=== PATIENT | male | born 1935 | race Caucasian/White ===

== ENCOUNTER 2018-05-11 13:51 | Inpatient (IN) | payer MEDICARE, BC ==
[2018-05-11] MEDS ORDERED: SODIUM CHLORIDE 0.9% 1,000 ML IV STA (14:12)
[2018-05-11] MEDS ORDERED: IPRATROPIUM-ALBUTEROL 3 ML NEB INHALATION STA (14:12)
[2018-05-11] MEDS ORDERED: methylPREDNISolone SOD SUCCI 125 MG/2 ML VIAL IV STA (14:12)
--- NOTE | 2018-05-11 14:15 | ED ---
SOB HPI - General Chief Complaint: Shortness of Breath Stated Complaint: Cough Time Seen by Provider: 05/11/18 14:05 Source: patient, family, RN notes reviewed Mode of arrival: ambulatory Limitations: no limitations - History of Present Illness Initial Comments: This 82-year-old male with a history of hypertension CHF diabetes who states she 's had a cough for last 2 weeks he is coughing up white phlegm he denies any chest pain fevers or chills he has had some sweats with this. He was dyspneic with exertion. He was seen at [facility] just prior to arrival here he was given albuterol treatment with minimal improvement in his breathing per the patient. He denies any history of COPD or emphysema he is not a smoker he states he did work for the [employer] and was exposed to dirt and dust over the years. No other modifying factors at this time MD Complaint: shortness of breath, cough - Related Data Home Medications Medication Instructions Recorded Confirmed Carvedilol [Coreg] 6.25 mg PO BID 05/11/18 05/11/18 Diltiazem HCl [Cardizem] 240 mg PO DAILY 05/11/18 05/11/18 Enalapril [Vasotec] 20 mg PO DAILY 05/11/18 05/11/18 Fluticasone Nasal [place] [Flonase 1 spray EA NOSTRIL DAILY 05/11/18 05/11/18 Nasal [place]] Furosemide [Lasix] 40 mg PO DAILY 05/11/18 05/11/18 [place]-3 Fatty Acids/Fish Oil [Fish 1 cap PO DAILY 05/11/18 05/11/18 Oil 1,000 mg Softgel] Omeprazole 20 mg PO DAILY 05/11/18 05/11/18 Potassium Chloride [Klor-Con 10] 10 meq PO DAILY 05/11/18 05/11/18 Pravastatin Sodium [Pravachol] 80 mg PO DAILY 05/11/18 05/11/18 Warfarin Sodium [Coumadin] 2.5 mg PO SUTUWEFRSA 05/11/18 05/11/18 Warfarin [Coumadin] 5 mg PO MOTH 05/11/18 05/11/18 glipiZIDE XL [Glucotrol Xl] 5 mg PO DAILY 05/11/18 05/11/18 metFORMIN HCL [Glucophage] 1,000 mg PO DAILY 05/11/18 05/11/18 Allergies Allergy/AdvReac Type Severity Reaction Status Date / Time No Known Allergies Allergy Verified 05/11/18 16:45 Review of Systems ROS Statement: Those systems with pertinent positive or pertinent negative responses have been documented in the HPI. ROS Other: All systems not noted in ROS Statement are negative. Past Medical History Past Medical History: Heart Failure, Diabetes Mellitus, Hyperlipidemia, Hypertension History of Any Multi-Drug Resistant Organisms: None Reported Past Surgical History: Orthopedic Surgery Additional Past Surgical History / Comment(s): right hip Past Psychological History: No Psychological Hx Reported Smoking Status: Former smoker Past Alcohol Use History: Occasional Past Drug Use History: None Reported General Exam - General Exam Comments Initial Comments: This is a well-developed well-nourished awake alert oriented 3 male Limitations: no limitations General appearance: alert, in no apparent distress Head exam: Present: atraumatic, normocephalic, normal inspection Eye exam: Present: normal appearance, PERRL, EOMI. Absent: scleral icterus, conjunctival injection, periorbital swelling ENT exam: Present: normal exam, mucous membranes moist Neck exam: Present: normal inspection. Absent: tenderness, meningismus, lymphadenopathy Respiratory exam: Present: wheezes, decreased breath sounds. Absent: respiratory distress, rales, rhonchi, stridor Cardiovascular Exam: Present: irregular rhythm, normal heart sounds. Absent: systolic murmur, diastolic murmur, rubs, gallop, clicks GI/Abdominal exam: Present: soft, normal bowel sounds. Absent: distended, tenderness, guarding, rebound, rigid Extremities exam: Present: normal inspection, full ROM, normal capillary refill. Absent: tenderness, pedal edema, joint swelling, calf tenderness Back exam: Present: normal inspection Neurological exam: Present: alert, oriented X3, CN II-XII intact Psychiatric exam: Present: normal affect, normal mood Skin exam: Present: warm, dry, intact, normal color. Absent: rash Course Vital Signs 05/11/18 05/11/18 05/11/18 13:52 14:18 14:30 Temperature 98.5 F Pulse Rate 66 67 Respiratory 18 22 Rate Blood Pressure 104/67 104/57 O2 Sat by Pulse 93 L 95 96 Oximetry 05/11/18 05/11/18 05/11/18 14:44 15:00 15:07 Temperature Pulse Rate 66 78 Respiratory 22 22 Rate Blood Pressure 103/65 O2 Sat by Pulse 96 Oximetry 05/11/18 05/11/18 15:15 16:00 Temperature Pulse Rate 78 78 Respiratory 20 Rate Blood Pressure 110/58 O2 Sat by Pulse 95 Oximetry - Reevaluation(s) Reevaluation #1: 05/11/18 17:09 Reevaluation patient revealed minimal improvement after initial treatment that was rendered. Medical Decision Making - Medical Decision Making Reexamination patient reveals minimal improvement he still has diffuse wheezing especially in the lower aspects of both lungs. I did a long discussion with him and his family patient be admitted for evaluation treatment. Pulmonary consultation will be obtained. I did discuss the case with Dr. Amaya. - Lab Data Result diagrams: 05/11/18 14:28 05/11/18 14:28 Lab Results 05/11/18 05/11/18 05/11/18 Range/Units 14:28 14:28 14:28 WBC 11.6 H (3.8-10.6) k/uL RBC 4.96 (4.30-5.90) m/uL Hgb 15.3 (13.0-17.5) gm/dL Hct 47.3 (39.0-53.0) % MCV 95.4 (80.0-100.0) fL MCH 30.8 (25.0-35.0) pg MCHC 32.3 (31.0-37.0) g/dL RDW 13.2 (11.5-15.5) % Plt Count 221 (150-450) k/uL Neutrophils % 81 % Lymphocytes % 11 % Monocytes % 5 % Eosinophils % 0 % Basophils % 0 % Neutrophils # 9.4 H (1.3-7.7) k/uL Lymphocytes # 1.2 (1.0-4.8) k/uL Monocytes # 0.6 (0-1.0) k/uL Eosinophils # 0.0 (0-0.7) k/uL Basophils # 0.0 (0-0.2) k/uL PT (9.0-12.0) sec INR (<1.2) APTT (22.0-30.0) sec Sodium 141 (137-145) mmol/L Potassium 5.0 (3.5-5.1) mmol/L Chloride 108 H (98-107) mmol/L Carbon Dioxide 23 (22-30) mmol/L Anion Gap 10 mmol/L BUN 32 H (9-20) mg/dL Creatinine 1.90 H (0.66-1.25) mg/dL Est GFR (CKD-EPI)AfAm 37 (>60 ml/min/1.73 sqM) Est GFR (CKD-EPI)NonAf 32 (>60 ml/min/1.73 sqM) Glucose 100 H (74-99) mg/dL Calcium 9.3 (8.4-10.2) mg/dL Magnesium 1.9 (1.6-2.3) mg/dL Total Bilirubin 1.2 (0.2-1.3) mg/dL AST 24 (17-59) U/L ALT 28 (21-72) U/L Alkaline Phosphatase 54 (38-126) U/L Total Creatine Kinase 125 (55-170) U/L CK-MB (CK-2) 1.1 (0.0-2.4) ng/mL CK-MB (CK-2) Rel Index 0.9 Troponin I <0.012 (0.000-0.034) ng/mL NT-Pro-B Natriuret Pep pg/mL Total Protein 6.1 L (6.3-8.2) g/dL Albumin 3.4 L (3.5-5.0) g/dL 05/11/18 05/11/18 Range/Units 14:28 14:28 WBC (3.8-10.6) k/uL RBC (4.30-5.90) m/uL Hgb (13.0-17.5) gm/dL Hct (39.0-53.0) % MCV (80.0-100.0) fL MCH (25.0-35.0) pg MCHC (31.0-37.0) g/dL RDW (11.5-15.5) % Plt Count (150-450) k/uL Neutrophils % % Lymphocytes % % Monocytes % % Eosinophils % % Basophils % % Neutrophils # (1.3-7.7) k/uL Lymphocytes # (1.0-4.8) k/uL Monocytes # (0-1.0) k/uL Eosinophils # (0-0.7) k/uL Basophils # (0-0.2) k/uL PT 13.8 H (9.0-12.0) sec INR 1.5 H (<1.2) APTT 28.8 (22.0-30.0) sec Sodium (137-145) mmol/L Potassium (3.5-5.1) mmol/L Chloride (98-107) mmol/L Carbon Dioxide (22-30) mmol/L Anion Gap mmol/L BUN (9-20) mg/dL Creatinine (0.66-1.25) mg/dL Est GFR (CKD-EPI)AfAm (>60 ml/min/1.73 sqM) Est GFR (CKD-EPI)NonAf (>60 ml/min/1.73 sqM) Glucose (74-99) mg/dL Calcium (8.4-10.2) mg/dL Magnesium (1.6-2.3) mg/dL Total Bilirubin (0.2-1.3) mg/dL AST (17-59) U/L ALT (21-72) U/L Alkaline Phosphatase (38-126) U/L Total Creatine Kinase (55-170) U/L CK-MB (CK-2) (0.0-2.4) ng/mL CK-MB (CK-2) Rel Index Troponin I (0.000-0.034) ng/mL NT-Pro-B Natriuret Pep 1800 pg/mL Total Protein (6.3-8.2) g/dL Albumin (3.5-5.0) g/dL - EKG Data -: EKG Interpreted by Me (Atrial fibrillation with a rate of 75 QRS 70 QT since QTC 36/431 low-voltag) - Radiology Data Radiology results: report reviewed (I did review the imaging and report no apparent acute findings or is evidence of a pulmonary nodule is noted.), image reviewed Disposition Clinical Impression: Asthmatic bronchitis, Adult respiratory distress syndrome Disposition: ADMITTED IP TO THIS [facility] Condition: Stable Referrals: Nicole Little MD [Primary Care Provider] - 1-2 days
[2018-05-11 14:52] LABS: Basophils % (A) 0 %; Eosinophils % (A) 0 %; HCT 47.3 % (39.0-53.0); HGB 15.3 gm/dL (13.0-17.5); Lymphocytes # (A) 1.2 k/uL (1.0-4.8); Lymphocytes % (A) 11 %; MCH 30.8 pg (25.0-35.0); MCHC 32.3 g/dL (31.0-37.0); MCV 95.4 fL (80.0-100.0); Mean Platelet Volume 7.7; Monocytes # (A) 0.6 k/uL (0-1.0); Monocytes % (A) 5 %; Neutrophils # (A) 9.4 k/uL (1.3-7.7); Neutrophils % (A) 81 %; Platelet Count 221 k/uL (150-450); RBC 4.96 m/uL (4.30-5.90); RDW 13.2 % (11.5-15.5); WBC 11.6 k/uL (3.8-10.6)
[2018-05-11 15:02] LABS: INR 1.5 (<1.2); Partial Thromboplastin Time 28.8 sec (22.0-30.0); Prothrombin Time 13.8 sec (9.0-12.0)
[2018-05-11 15:04] LABS: Albumin 3.4 g/dL (3.5-5.0); Calcium 9.3 mg/dL (8.4-10.2); Magnesium 1.9 mg/dL (1.6-2.3); Total Bilirubin 1.2 mg/dL (0.2-1.3); Total Protein 6.1 g/dL (6.3-8.2)
[2018-05-11 15:17] LABS: Creatine Kinase 125 U/L (55-170)
[2018-05-11 15:31] LABS: Creatine Kinase MB 1.1 ng/mL (0.0-2.4); Troponin I <0.012 ng/mL (0.000-0.034)
--- NOTE | 2018-05-11 15:45 | XR ---
EXAMINATION TYPE: XR chest 2V DATE OF EXAM: 05/11/2018 COMPARISON: NONE HISTORY: Difficulty breathing, cough TECHNIQUE: Frontal and lateral views of the chest are obtained. FINDINGS: Heart is at the upper limit of normal, patient rotation may accentuate the appearance. Rob e nodular lesions are present in the right upper lobe which are indeterminate. There are overlying ca rdiac leads. Aorta is dense. No evident airspace disease, pneumothorax, or pleural effusion. Pulmonar y vascularity and key within normal limits. Prominent lung volumes suggest underlying COPD. There ar e coronary artery calcifications. IMPRESSION: Indeterminate nodularity right upper lobe, follow-up is recommended to assess for stabil ity, comparison with old chest x-rays would be of benefit if available. Coronary artery disease.
[2018-05-11] MEDS: SODIUM CHLORIDE 0.9% 1,000 ML IV SCH (17:20)
[2018-05-11] MEDS ORDERED: methylPREDNISolone SOD SUCCI 125 MG/2 ML VIAL IV SCH (19:00)
[2018-05-11] MEDS: CARVEDILOL 6.25 MG TAB PO SCH (19:13)
[2018-05-11] MEDS: WARFARIN 2.5 MG TAB PO SCH (19:13)
--- NOTE | 2018-05-11 20:11 | P.CNPUL ---
History of Present Illness Consult date: 05/11/18 Requesting physician: Rosalind Amaya Reason for consult: dyspnea Chief complaint: Shortness of breath cough and burping History of present illness: This is an 82-year-old white male with history of diabetes, chronic congestive heart failure, chronic atrial fibrillation, no documented history of COPD, patient had a very remote smoking history over 50 years ago, and normally he is not on any bronchodilators. Patient is mostly on multiple cardiac meds including Cardizem, Coreg, and enalapril, he is also on Lasix 40 mg daily. Patient is maintained on Coumadin, glipizide and metformin. Patient presented to the ER with 2 weeks history of increased shortness of breath, some cough, no fever no chills, complaining of occasional burping and wheezing. Upon arrival to the ER, patient was noted to be quite bronchospastic, he was given an updraft treatment, however he continued to wheeze. His chest x-ray showed no evidence of any significant disease, no pneumonia, no evidence of pulmonary edema, there is cardiomegaly, patient was admitted, and this consult was initiated. Presently the patient feels a bit better, less cough, less wheezing , no chest pain, no fever, no chills, no hemoptysis. No nausea no vomiting, but she continues to have intermittent burping symptoms. Denies any abdominal pain, no melena, no hematemesis, no dysuria and no frequency no urgency. Review of Systems 14 point review of systems were obtained, results are to pertinent positives and negatives in HPI. Otherwise remaining systems are negative. Past Medical History Past Medical History: Heart Failure, Diabetes Mellitus, Hyperlipidemia, Hypertension History of Any Multi-Drug Resistant Organisms: None Reported Past Surgical History: Orthopedic Surgery Additional Past Surgical History / Comment(s): right hip Past Anesthesia/Blood Transfusion Reactions: No Reported Reaction Past Psychological History: No Psychological Hx Reported Smoking Status: Former smoker Past Alcohol Use History: Occasional Past Drug Use History: None Reported Medications and Allergies Home Medications Medication Instructions Recorded Confirmed Type Carvedilol [Coreg] 6.25 mg PO BID 05/11/18 05/11/18 History Diltiazem HCl [Cardizem] 240 mg PO DAILY 05/11/18 05/11/18 History Enalapril [Vasotec] 20 mg PO DAILY 05/11/18 05/11/18 History Fluticasone Nasal [place] [Flonase 1 spray EA NOSTRIL DAILY 05/11/18 05/11/18 History Nasal [place]] Furosemide [Lasix] 40 mg PO DAILY 05/11/18 05/11/18 History [place]-3 Fatty Acids/Fish Oil [Fish 1 cap PO DAILY 05/11/18 05/11/18 History Oil 1,000 mg Softgel] Omeprazole 20 mg PO DAILY 05/11/18 05/11/18 History Potassium Chloride [Klor-Con 10] 10 meq PO DAILY 05/11/18 05/11/18 History Pravastatin Sodium [Pravachol] 80 mg PO DAILY 05/11/18 05/11/18 History Warfarin Sodium [Coumadin] 2.5 mg PO SUTUWEFRSA 05/11/18 05/11/18 History Warfarin [Coumadin] 5 mg PO MOTH 05/11/18 05/11/18 History glipiZIDE XL [Glucotrol Xl] 5 mg PO DAILY 05/11/18 05/11/18 History metFORMIN HCL [Glucophage] 1,000 mg PO DAILY 05/11/18 05/11/18 History Allergies Allergy/AdvReac Type Severity Reaction Status Date / Time No Known Allergies Allergy Verified 05/11/18 16:45 Physical Exam Vitals: Vital Signs Temp Pulse Resp BP Pulse Ox 05/11/18 17:50 97.9 F 05/11/18 17:30 80 22 126/81 96 05/11/18 17:00 85 20 115/66 95 05/11/18 16:30 66 20 115/58 96 05/11/18 16:00 78 20 110/58 95 05/11/18 15:15 78 05/11/18 15:07 78 05/11/18 15:00 66 22 103/65 96 05/11/18 14:44 22 05/11/18 14:30 67 22 104/57 96 05/11/18 14:18 95 05/11/18 13:52 98.5 F 66 18 104/67 93 L Intake and Output 05/11/18 05/11/18 05/11/18 06:59 14:59 22:59 Other: Weight 90.718 kg Physical Exam: Revealed an 82-year-old white male in no distress. Head: Atraumatic, normocephalic. HEENT:[Neck is supple.] [No neck masses.] [No thyromegaly.] [No JVD.] PERRLA, EOMI, no icterus. Chest: [Minimal fine crackles at the bases, wheezing on forced expiratory maneuver is noted. Symmetrical chest expansion, no chest wall tenderness..] Cardiac Exam: [Irregular irregular rhythm, 2/6 systolic murmur thought the precordium.] Abdomen: [,Soft, nontender, no megaly, no rebound, no guarding, normal bowel sounds.] Extremities: [No clubbing, trace of bipedal edema, no cyanosis.] Neurological Exam: [No focal neurologic deficit. Lymphatics: No lymphadenopathy. Psychiatric: Normal mood, affect and mental status examination. Skin: No rashes.] Results - Laboratory Findings CBC and BMP: 05/11/18 14:28 05/11/18 14:28 PT/INR, D-dimer PT 13.8 sec (9.0-12.0) H 05/11/18 14:28 INR 1.5 (<1.2) H 05/11/18 14:28 Abnormal lab findings: Abnormal Labs 05/11/18 05/11/18 05/11/18 14:28 14:28 14:28 WBC 11.6 H Neutrophils # 9.4 H PT 13.8 H INR 1.5 H Chloride 108 H BUN 32 H Creatinine 1.90 H Glucose 100 H Total Protein 6.1 L Albumin 3.4 L - Diagnostic Findings Chest x-ray: image reviewed (As noted in HPI.) Assessment and Plan Assessment: Impression: 1 shortness of breath, multifactorial, suspect underlying cardiomyopathy and LV dysfunction, chronic atrial fibrillation, suspect some component of COPD and tracheobronchitis. 2 chronic atrial fibrillation 3 cardiomyopathy and LV dysfunction hence an echocardiogram was ordered. 4 acute. Tracheobronchitis with acute COPD exacerbation. 5 type 2 diabetes 6 benign essential hypertension 7 dyslipidemia. 8 suspect chronic kidney disease, stage III based on his GFR. However the possibility of cardiorenal syndrome is not entirely ruled out. Recommendation: Continue present bronchodilators, steroids, antibiotics, increased the dose of Lasix, to 40 mg twice a day instead of 40 mg daily. ordered an echocardiogram on the patient, and we'll continue to follow. Resume his cardiac meds including Coreg, Cardizem, and lisinopril. Time with Patient: Greater than 30
[2018-05-11] MEDS: IPRATROPIUM-ALBUTEROL 3 ML NEB INHALATION SCH ×2 (20:15→23:32)
[2018-05-11] MEDS ORDERED: INSULIN ASPART 100 UNIT/ML 1 ML 10 ML VIAL SQ SCH (21:00)
[2018-05-11 21:14] LABS: Glucose,Whole Blood 144 mg/dL (75-99)
[2018-05-11] MEDS: AZITHROMYCIN 500 MG TAB PO SCH (21:35)
[2018-05-11] MEDS: INSULIN ASPART 100 UNIT/ML 1 ML 10 ML VIAL SQ SCH (21:35)
[2018-05-11] MEDS: methylPREDNISolone SOD SUCCI 40 MG/ML 1 ML VIAL IV SCH (22:44)
[2018-05-12] MEDS ORDERED: methylPREDNISolone SOD SUCCI 125 MG/2 ML VIAL IV SCH
[2018-05-12] MEDS: IPRATROPIUM-ALBUTEROL 3 ML NEB INHALATION SCH ×6 (03:05→23:31)
[2018-05-12] MEDS: PRAVASTATIN SODIUM 80 MG TAB PO SCH (07:33)
[2018-05-12] MEDS: methylPREDNISolone SOD SUCCI 40 MG/ML 1 ML VIAL IV SCH ×3 (07:33→23:29)
[2018-05-12] MEDS: CARVEDILOL 6.25 MG TAB PO SCH ×2 (07:33→17:33)
[2018-05-12] MEDS: POTASSIUM CHLORIDE ER 10 MEQ TAB.ER.PRT PO SCH (07:33)
[2018-05-12] MEDS: DILTIAZEM CD 240 MG CAP.ER.24H PO SCH (07:33)
[2018-05-12] MEDS: metFORMIN 500 MG TAB PO SCH (07:33)
[2018-05-12] MEDS: PANTOPRAZOLE 40 MG TABLET PO SCH (07:33)
[2018-05-12] MEDS: INSULIN ASPART 100 UNIT/ML 1 ML 10 ML VIAL SQ SCH ×4 (07:34→22:18)
[2018-05-12] MEDS: LISINOPRIL 20 MG TAB PO SCH (07:34)
[2018-05-12] MEDS: FUROSEMIDE 40 MG TAB PO SCH ×2 (07:34→15:18)
[2018-05-12 07:51] LABS: Glucose,Whole Blood 180 mg/dL (75-99)
[2018-05-12] MEDS: FLUTICASONE 50MCG/SPRAY NASAL 16GM EA NOSTRIL SCH (08:59)
[2018-05-12] MEDS ORDERED: FUROSEMIDE 40 MG TAB PO SCH (09:00)
[2018-05-12] MEDS ORDERED: NON-FORMULARY DRUG (Omega-3 Fatty Acids/Fish Oil [Fish Oil 1,000 Mg Softgel] 1 CAP) PO SCH (09:00)
--- NOTE | 2018-05-12 11:29 | P.PN ---
Subjective Progress Note Date: 05/12/18 Principal diagnosis: Shortness of breath, multifactorial, secondary to suspected underlying cardiomyopathy, and LV dysfunction, chronic atrial fibrillation and a component of COPD and tracheobronchitis This is an 82-year-old white male with history of diabetes, chronic congestive heart failure, chronic atrial fibrillation, no documented history of COPD, patient had a very remote smoking history over 50 years ago, and normally he is not on any bronchodilators. Patient is mostly on multiple cardiac meds including Cardizem, Coreg, and enalapril, he is also on Lasix 40 mg daily. Patient is maintained on Coumadin, glipizide and metformin. Patient presented to the ER with 2 weeks history of increased shortness of breath, some cough, no fever no chills, complaining of occasional burping and wheezing. Upon arrival to the ER, patient was noted to be quite bronchospastic, he was given an updraft treatment, however he continued to wheeze. His chest x-ray showed no evidence of any significant disease, no pneumonia, no evidence of pulmonary edema, there is cardiomegaly, patient was admitted, and this consult was initiated. Presently the patient feels a bit better, less cough, less wheezing , no chest pain, no fever, no chills, no hemoptysis. No nausea no vomiting, but she continues to have intermittent burping symptoms. Denies any abdominal pain, no melena, no hematemesis, no dysuria and no frequency no urgency. On 05/12/2018 patient seen in follow-up on medical surgical floor. Denies any acute distress, lung sounds remain very congested, it the patient is able to bring up some whitish colored sputum. No complaints of chest pain, no hemoptysis, no fever, no chills. Currently on 2 L per nasal cannula. Vitals have been stable. Patient is being treated with oral Lasix, empiric antibiotic , and nebulized bronchodilators in addition to IV steroids. No acute events overnight, no specific complaints, his breathing is easier today. Objective - Vital Signs Vital signs: Vital Signs Temp 96.9 F L 05/12/18 07:00 Pulse 100 05/12/18 11:11 Resp 16 05/12/18 07:00 BP 144/76 05/12/18 07:00 Pulse Ox 90 L 05/12/18 07:00 Intake & Output 05/11/18 05/12/18 05/12/18 19:59 06:59 18:59 Intake Total Output Total Balance Weight Intake: Oral Output: Urine - Exam Physical Exam: Revealed an 82-year-old white male in no distress. Head: Atraumatic, normocephalic. HEENT:[Neck is supple.] [No neck masses.] [No thyromegaly.] [No JVD.] PERRLA, EOMI, no icterus. Chest: [Diffuse rhonchi, wheezing on forced expiratory maneuver is noted. Symmetrical chest expansion, no chest wall tenderness..] Cardiac Exam: [Irregular irregular rhythm, 2/6 systolic murmur thought the precordium.] Abdomen: [,Soft, nontender, no megaly, no rebound, no guarding, normal bowel sounds.] Extremities: [No clubbing, trace of bipedal edema, no cyanosis.] Neurological Exam: [No focal neurologic deficit. Lymphatics: No lymphadenopathy. Psychiatric: Normal mood, affect and mental status examination. Skin: No rashes.] - Labs CBC & Chem 7: 05/11/18 14:28 05/11/18 14:28 Labs: Abnormal Lab Results - Last 24 Hours (Table) 05/11/18 05/11/18 05/11/18 Range/Units 14:28 14:28 14:28 WBC 11.6 H (3.8-10.6) k/uL Neutrophils # 9.4 H (1.3-7.7) k/uL PT 13.8 H (9.0-12.0) sec INR 1.5 H (<1.2) Chloride 108 H (98-107) mmol/L BUN 32 H (9-20) mg/dL Creatinine 1.90 H (0.66-1.25) mg/dL Glucose 100 H (74-99) mg/dL POC Glucose (mg/dL) (75-99) mg/dL Total Protein 6.1 L (6.3-8.2) g/dL Albumin 3.4 L (3.5-5.0) g/dL 05/11/18 05/12/18 Range/Units 20:53 07:29 WBC (3.8-10.6) k/uL Neutrophils # (1.3-7.7) k/uL PT (9.0-12.0) sec INR (<1.2) Chloride (98-107) mmol/L BUN (9-20) mg/dL Creatinine (0.66-1.25) mg/dL Glucose (74-99) mg/dL POC Glucose (mg/dL) 144 H 180 H (75-99) mg/dL Total Protein (6.3-8.2) g/dL Albumin (3.5-5.0) g/dL Assessment and Plan Plan: 1 shortness of breath, multifactorial, suspect underlying cardiomyopathy and LV dysfunction, chronic atrial fibrillation, suspect some component of COPD and tracheobronchitis. 2 chronic atrial fibrillation 3 cardiomyopathy and LV dysfunction hence an echocardiogram was ordered. 4 acute. Tracheobronchitis with acute COPD exacerbation. 5 type 2 diabetes 6 benign essential hypertension 7 dyslipidemia. 8 suspect chronic kidney disease, stage III based on his GFR. However the possibility of cardiorenal syndrome is not entirely ruled out. Plan: Continue current antibiotic coverage, IV steroids, oral Lasix bronchodilators. Wean FiO2, increase ambulation. Echocardiogram has been ordered and is pending at this time, no complaints of worsening shortness of breath or chest pain. Patient reports his breathing is improving, although still sounds congested and rhonchorous. Continue to follow I performed a history & physical examination of the patient and discussed their management with my nurse practitioner, Mary Copeland. I reviewed the nurse practitioner's note and agree with the documented findings and plan of care. Lung sounds are positive for diffuse rhonchi more so on the left. The findings and the impression was discussed with the patient. I attest to the documentation by the nurse practitioner. Time with Patient: Less than 30
[2018-05-12 12:04] LABS: Glucose,Whole Blood 195 mg/dL (75-99)
[2018-05-12 17:27] LABS: Glucose,Whole Blood 206 mg/dL (75-99)
[2018-05-12] MEDS: WARFARIN 2.5 MG TAB PO SCH (17:33)
[2018-05-12] MEDS: SODIUM CHLORIDE 0.9% 1,000 ML IV SCH (17:34)
--- NOTE | 2018-05-12 18:55 | P.HPIM ---
History of Present Illness H&P Date: 05/12/18 Chief Complaint: Shortness of breath Javon Chavira is an 82-year-old male patient of Dr. dunham who presented to [facility] emergency room with a chief complaint of worsening shortness of breath, he was evaluated in the emergency room preliminary diagnosis was acute exacerbation of chronic obstructive pulmonary disease, he was started on inhaled bronchodilators and IV steroids and was admitted to medical floor pulmonary consultation was requested. Patient does not have any clear history of chronic obstructive pulmonary disease he used to smoke but quit more than 50 years ago, he has known history of congestive heart failure, atrial fibrillation, hypertension, [id number] diabetes mellitus and hypertension. Patient was seen and examined he states that he has been having worsening shortness of breath over the last several days he denies any chest pain he has been having cough without any sputum production no hemoptysis no palpitation no fever or chills no headache or dizziness no nausea or vomiting no abdominal pain no diarrhea no burning with urination no frequency or urgency and no hematuria Past Medical History Past Medical History: Heart Failure, Diabetes Mellitus, Hyperlipidemia, Hypertension History of Any Multi-Drug Resistant Organisms: None Reported Past Surgical History: Orthopedic Surgery Additional Past Surgical History / Comment(s): right hip Past Anesthesia/Blood Transfusion Reactions: No Reported Reaction Past Psychological History: No Psychological Hx Reported Smoking Status: Former smoker Past Alcohol Use History: Occasional Past Drug Use History: None Reported Medications and Allergies Home Medications Medication Instructions Recorded Confirmed Type Carvedilol [Coreg] 6.25 mg PO BID 05/11/18 05/11/18 History Diltiazem HCl [Cardizem] 240 mg PO DAILY 05/11/18 05/11/18 History Enalapril [Vasotec] 20 mg PO DAILY 05/11/18 05/11/18 History Fluticasone Nasal [place] [Flonase 1 spray EA NOSTRIL DAILY 05/11/18 05/11/18 History Nasal [place]] Furosemide [Lasix] 40 mg PO DAILY 05/11/18 05/11/18 History [place]-3 Fatty Acids/Fish Oil [Fish 1 cap PO DAILY 05/11/18 05/11/18 History Oil 1,000 mg Softgel] Omeprazole 20 mg PO DAILY 05/11/18 05/11/18 History Potassium Chloride [Klor-Con 10] 10 meq PO DAILY 05/11/18 05/11/18 History Pravastatin Sodium [Pravachol] 80 mg PO DAILY 05/11/18 05/11/18 History Warfarin Sodium [Coumadin] 2.5 mg PO SUTUWEFRSA 05/11/18 05/11/18 History Warfarin [Coumadin] 5 mg PO MOTH 05/11/18 05/11/18 History glipiZIDE XL [Glucotrol Xl] 5 mg PO DAILY 05/11/18 05/11/18 History metFORMIN HCL [Glucophage] 1,000 mg PO DAILY 05/11/18 05/11/18 History Allergies Allergy/AdvReac Type Severity Reaction Status Date / Time No Known Allergies Allergy Verified 05/11/18 16:45 Physical Exam Vitals: Vital Signs Temp Pulse Pulse Resp BP Pulse Ox Pulse Ox 05/12/18 15:43 98 05/12/18 15:33 98 05/12/18 14:25 97.3 F L 87 16 118/71 94 L 05/12/18 12:05 96 05/12/18 11:23 100 05/12/18 11:11 100 05/12/18 07:28 100 05/12/18 07:14 104 H 05/12/18 07:00 96.9 F L 100 16 144/76 90 L 05/12/18 03:11 88 05/12/18 03:03 88 05/11/18 23:41 84 05/11/18 23:32 96 05/11/18 23:00 98.4 F 89 20 128/75 94 L 05/11/18 20:31 80 05/11/18 20:15 76 Pulse Ox Pulse Ox 05/12/18 15:43 05/12/18 15:33 05/12/18 14:25 05/12/18 12:05 93 L 92 L 05/12/18 11:23 05/12/18 11:11 05/12/18 07:28 05/12/18 07:14 05/12/18 07:00 05/12/18 03:11 05/12/18 03:03 05/11/18 23:41 05/11/18 23:32 05/11/18 23:00 05/11/18 20:31 05/11/18 20:15 Intake and Output 05/12/18 05/12/18 05/12/18 06:59 14:59 22:59 Other: # Voids 2 In general patient is alert and oriented 3 in no apparent distress HEENT head normocephalic and atraumatic Neck is supple no JVD no goiter no lymphadenopathy Chest exam reveals a few scattered crackles bilaterally with mild wheezing Cardiac exam reveals irregular heart sounds S1 and S2 no gallops no murmurs Abdomen is soft nontender no organomegaly with normal bowel sounds Extremity exam reveals no edema no cyanosis or clubbing Neurological examination reveals no gross focal deficit Results CBC & Chem 7: 05/11/18 14:28 05/11/18 14:28 Labs: Abnormal Lab Results - Last 24 Hours (Table) 05/11/18 05/12/18 05/12/18 Range/Units 20:53 07:29 11:58 POC Glucose (mg/dL) 144 H 180 H 195 H (75-99) mg/dL 05/12/18 Range/Units 17:10 POC Glucose (mg/dL) 206 H (75-99) mg/dL Microbiology - Last 24 Hours (Table) 05/11/18 14:28 Blood Culture - Preliminary Blood No Growth after 24 hours Thrombosis Risk Factor Assmnt - Choose All That Apply Any of the Below Risk Factors Present?: Yes Each Factor Represents 1 point: Obesity (BMI >25) Other Risk Factors: Yes Each Risk Factor Represents 3 Points: Age 75 years or older Other congenital or acquired thrombophilia - If yes, enter type in comment: No Thrombosis Risk Factor Assessment Total Risk Factor Score: 4 Thrombosis Risk Factor Assessment Level: Moderate Risk Assessment and Plan Plan: #1 acute purulent bronchitis #2 acute exacerbation of chronic obstructive pulmonary disease #3 underlying history of cardiomyopathy #4 underlying history of atrial fibrillation, maintained on Coumadin #5 underlying history of [id number] diabetes mellitus #6 and history of hypertension At this time medication and labs were reviewed continue with IV antibiotic, IV steroids, and inhaled bronchodilators Check echocardiogram consult cardiology in that regard to cardiomyopathy and atrial fibrillation Add Mucinex 600 mg twice daily Recheck labs including INR in a.m.
[2018-05-12] MEDS: AZITHROMYCIN 500 MG TAB PO SCH (20:01)
[2018-05-12 21:09] LABS: Glucose,Whole Blood 190 mg/dL (75-99)
[2018-05-13] MEDS: IPRATROPIUM-ALBUTEROL 3 ML NEB INHALATION SCH ×6 (03:45→23:44)
[2018-05-13 07:38] LABS: Glucose,Whole Blood 239 mg/dL (75-99)
[2018-05-13] MEDS: FLUTICASONE 50MCG/SPRAY NASAL 16GM EA NOSTRIL SCH (07:57)
[2018-05-13] MEDS: INSULIN ASPART 100 UNIT/ML 1 ML 10 ML VIAL SQ SCH ×4 (07:57→22:12)
[2018-05-13] MEDS: FUROSEMIDE 40 MG TAB PO SCH ×2 (07:58→15:12)
[2018-05-13] MEDS: methylPREDNISolone SOD SUCCI 40 MG/ML 1 ML VIAL IV SCH ×2 (07:58→15:12)
[2018-05-13] MEDS: POTASSIUM CHLORIDE ER 10 MEQ TAB.ER.PRT PO SCH (07:58)
[2018-05-13] MEDS: PANTOPRAZOLE 40 MG TABLET PO SCH (07:58)
[2018-05-13] MEDS: DILTIAZEM CD 240 MG CAP.ER.24H PO SCH (07:59)
[2018-05-13] MEDS: CARVEDILOL 6.25 MG TAB PO SCH ×2 (07:59→15:14)
[2018-05-13] MEDS: metFORMIN 500 MG TAB PO SCH (07:59)
[2018-05-13] MEDS: PRAVASTATIN SODIUM 80 MG TAB PO SCH (08:26)
[2018-05-13] MEDS: LISINOPRIL 20 MG TAB PO SCH (08:27)
[2018-05-13 09:45] LABS: Basophils % (A) 0 %; Eosinophils % (A) 0 %; HCT 39.8 % (39.0-53.0); HGB 13.3 gm/dL (13.0-17.5); Lymphocytes # (A) 0.5 k/uL (1.0-4.8); Lymphocytes % (A) 3 %; MCH 31.4 pg (25.0-35.0); MCHC 33.4 g/dL (31.0-37.0); MCV 94.1 fL (80.0-100.0); Mean Platelet Volume 8.2; Monocytes # (A) 0.4 k/uL (0-1.0); Monocytes % (A) 3 %; Neutrophils # (A) 14.5 k/uL (1.3-7.7); Neutrophils % (A) 94 %; Platelet Count 203 k/uL (150-450); RBC 4.23 m/uL (4.30-5.90); RDW 13.2 % (11.5-15.5); WBC 15.5 k/uL (3.8-10.6)
[2018-05-13 09:48] LABS: Prothrombin Time 17.8 sec (9.0-12.0)
[2018-05-13 10:51] LABS: Hemoglobin A1C 6.5 % (4.0-6.0)
--- NOTE | 2018-05-13 10:56 | P.PN ---
Subjective Progress Note Date: 05/13/18 Javon Chavira is an 82-year-old male patient of Dr. dunham who presented to [facility] emergency room with a chief complaint of worsening shortness of breath, he was evaluated in the emergency room preliminary diagnosis was acute exacerbation of chronic obstructive pulmonary disease, he was started on inhaled bronchodilators and IV steroids and was admitted to medical floor pulmonary consultation was requested. Patient does not have any clear history of chronic obstructive pulmonary disease he used to smoke but quit more than 50 years ago, he has known history of congestive heart failure, atrial fibrillation, hypertension, [id number] diabetes mellitus and hypertension. Patient was seen and examined he states that he has been having worsening shortness of breath over the last several days he denies any chest pain he has been having cough without any sputum production no hemoptysis no palpitation no fever or chills no headache or dizziness no nausea or vomiting no abdominal pain no diarrhea no burning with urination no frequency or urgency and no hematuria On 05/13/2018 patient is currently alert and oriented 3 resting in bed. Patient is still complaining of dry nonproductive cough. Patient is maintained on azithromycin Solu-Medrol and Lasix at this time. Cardiology services are following 2-D echo has been ordered. The same patient denies chest pain. Patient denies any urinary burning or frequency. Patient denies nausea vomiting or diarrhea. Objective - Vital Signs Vital signs: Vital Signs Temp 97.7 F 05/13/18 07:00 Pulse 72 05/13/18 07:30 Resp 18 05/13/18 07:00 BP 111/53 05/13/18 07:00 Pulse Ox 97 05/13/18 07:14 Intake & Output 05/12/18 05/13/18 05/13/18 18:59 06:59 18:59 Other: Voiding Method Toilet # Voids 2 2 - Exam Head normocephalic Neck supple Lungs scattered crackles bilaterally with mild wheezing Heart regular rate and rhythm S1-S2, no rub or gallop Abdomen is soft nontender nondistended positive bowel sounds no hepatosplenomegaly Extremities no edema Neuro alert and orientated to 3 - Labs CBC & Chem 7: 05/13/18 09:26 05/11/18 14:28 Labs: Abnormal Lab Results - Last 24 Hours (Table) 05/12/18 05/12/18 05/12/18 Range/Units 11:58 17:10 20:48 WBC (3.8-10.6) k/uL RBC (4.30-5.90) m/uL Neutrophils # (1.3-7.7) k/uL Lymphocytes # (1.0-4.8) k/uL PT (9.0-12.0) sec INR (<1.2) POC Glucose (mg/dL) 195 H 206 H 190 H (75-99) mg/dL 05/13/18 05/13/18 05/13/18 Range/Units 07:30 09:26 09:26 WBC 15.5 H (3.8-10.6) k/uL RBC 4.23 L (4.30-5.90) m/uL Neutrophils # 14.5 H (1.3-7.7) k/uL Lymphocytes # 0.5 L (1.0-4.8) k/uL PT 17.8 H (9.0-12.0) sec INR 2.0 H (<1.2) POC Glucose (mg/dL) 239 H (75-99) mg/dL Microbiology - Last 24 Hours (Table) 05/11/18 14:28 Blood Culture - Preliminary Blood No Growth after 24 hours Assessment and Plan Assessment: #1 acute purulent bronchitis. Per pulmonary services continue bronchodilators, steroids, antibiotics increased dose of Lasix to 40 mg twice a day. #2 acute exacerbation of chronic obstructive pulmonary disease #3 underlying history of cardiomyopathy. Cardiology services are following. 2- D echo has been ordered #4 underlying history of atrial fibrillation, maintained on Coumadin. INR 2.0 #5 underlying history of [id number]-[id number] diabetes mellitus #6 and history of hypertension #7 acute kidney injury. Initial creatinine 1.90 and bun 32. Repeat labs have been ordered DVT prophylaxis Coumadin. GI prophylaxis Protonix I performed an examination of the patient and discussed their management with the Nurse Practitioner. I have reviewed the Nurse Practitioner's notes and agree with the documented findings and plan of care
[2018-05-13 11:03] LABS: Albumin 3.2 g/dL (3.5-5.0); Calcium 9.1 mg/dL (8.4-10.2); Potassium 4.8 mmol/L (3.5-5.1); Total Bilirubin 0.5 mg/dL (0.2-1.3); Total Protein 5.7 g/dL (6.3-8.2)
--- NOTE | 2018-05-13 11:43 | ECHOF ---
Referral Reason:chf/sob MEASUREMENTS -------- HEIGHT: 167.6 cm WEIGHT: 90.7 kg BP: 118/71 RVIDd: 3.0 cm (< 3.3) IVSd: 1.5 cm (0.6 - 1.1) LVIDd: 4.2 cm (3.9 - 5.3) LVPWd: 1.5 cm (0.6 - 1.1) IVSs: 1.6 cm LVIDs: 3.1 cm LVPWs: 2.1 cm LA Diam: 4.4 cm (2.7 - 3.8) LAESV Index (A-L): 37.37 ml/m Ao Diam: 3.1 cm (2.0 - 3.7) AV Cusp: 1.8 cm (1.5 - 2.6) MV EXCURSION: 19.176 mm (> 18.000) MV EF SLOPE: 117 mm/s (70 - 150) EPSS: 0.2 cm AV maxP.88 mmHg AV meanP.51 mmHg RAP: 5.00 mmHg RVSP: 37.00 mmHg FINDINGS -------- Atrial fibrillation. This was a technically adequate study. The left ventricular size is normal. There is moderate concentric left ventricular hypertrophy. O verall left ventricular systolic function is normal with, an EF between 55 - 60 %. The right ventricle is normal in size. LA is moderately dilated 34-39 ml/m2 The right atrium is normal in size. There is mild aortic valve sclerosis. There is mild aortic stenosis present. Peak/mean gradient a cross the Aortic Valve is 18.88mmHg / 8.51mmHg. The mitral valve leaflets are mildly thickened. Mild mitral annular calcification present. Mild m itral regurgitation is present. Mild tricuspid regurgitation present. There is mild pulmonary hypertension. The right ventricular systolic pressure, as measured by Doppler, is 37.00mmHg. The pulmonic valve was not well visualized. The aortic root size is normal. Normal inferior vena cava with normal inspiratory collapse consistent with estimated right atrial pre ssure of 5 mmHg. There is a small, generalized pericardial effusion present. CONCLUSIONS -------- 1. Atrial fibrillation. 2. This was a technically adequate study. 3. The left ventricular size is normal. 4. There is moderate concentric left ventricular hypertrophy. 5. Overall left ventricular systolic function is normal with, an EF between 55 - 60 %. 6. The right ventricle is normal in size. 7. LA is moderately dilated 34-39 ml/m2 8. The right atrium is normal in size. 9. There is mild aortic valve sclerosis. 10. There is mild aortic stenosis present. 11. Peak/mean gradient across the Aortic Valve is 18.88mmHg / 8.51mmHg. 12. The mitral valve leaflets are mildly thickened. 13. Mild mitral annular calcification present. 14. Mild mitral regurgitation is present. 15. Mild tricuspid regurgitation present. 16. There is mild pulmonary hypertension. 17. The right ventricular systolic pressure, as measured by Doppler, is 37.00mmHg. 18. The pulmonic valve was not well visualized. 19. The aortic root size is normal. 20. Normal inferior vena cava with normal inspiratory collapse consistent with estimated right atrial pressure of 5 mmHg. 21. There is a small, generalized pericardial effusion present. REFERENCE SERVICES HEAD: Krystle Mccain RDCS
--- NOTE | 2018-05-13 11:52 | CONS ---
CHAZ Alejandro is an 82-year-old gentleman with history of diabetes, hypertension, dyslipidemia and atrial fibrillation, who presented to hospital complaining of shortness of breath, cough with unproductive sputum. Cardiology had been consulted because of elevated BNP. At the time of my evaluation, patient is being treated with nebulizers, antibiotics, and IV diuretics without significant change in his symptoms. PAST MEDICAL HISTORY: Past medical history is significant for atrial fibrillation, hypertension, diabetes, dyslipidemia. PAST SURGICAL HISTORY: Past surgical history is significant for hip replacement. SOCIAL HISTORY: Negative for smoking. REVIEW OF SYSTEMS: HEENT is unremarkable. CARDIAC: As described above. RESPIRATORY: As described above. GI: Negative. GENITOURINARY: Negative. ALLERGY/IMMUNOLOGY: Negative. SKIN: Negative. MUSCULOSKELETAL: Significant for arthritis. PSYCHOSOCIAL: Negative. ENDOCRINE: Negative. DERM: Negative. CONSTITUTIONAL: Negative. ONCOLOGICAL: Negative. Rest of the systems review is not relevant. MEDICATIONS: Medications at home included Coreg 6.25 b.i.d., Cardizem 240 daily, Vasotec 20 daily, Flonase, Lasix 40 q. daily, fish oil, K-Dur, Pravachol, Coumadin, Glucotrol XL, and Glucophage. ALLERGIES: No known drug allergies. PHYSICAL EXAMINATION: On exam, patient is comfortable at rest. Vital signs are stable. There is no jugular venous distention. Chest exam reveals diffuse rhonchi bilaterally. Heart exam reveals first and second heart sounds. No gallop. Has a systolic murmur at the left lower sternal border. Abdomen is soft. Examination of extremities did not reveal any edema. Peripheral pulses are felt. LABS: Labs show that the hemoglobin is 13.3. INR is therapeutic at 2. BNP is elevated. EKG shows atrial fibrillation with controlled ventricular rate. ASSESSMENT: 1. Shortness of breath, probably due to combination of bronchitis and acute exacerbation of chronic diastolic heart failure. 2. Chronic atrial fibrillation. 3. Hypertension. 4. Dyslipidemia. PLAN: I agree with the antibiotics, IV diuretics, Coumadin to maintain an INR of 2 to 2.5, Coreg and Cardizem to control the blood pressure and heart rate. I will obtain a 2D echo to evaluate his LV function. Thank you for allowing me to participate in the care of this pleasant gentleman. MMODL / IJN: [id number] /
[2018-05-13 12:03] LABS: Glucose,Whole Blood 155 mg/dL (75-99)
--- NOTE | 2018-05-13 14:08 | P.PN ---
Subjective Progress Note Date: 05/13/18 Principal diagnosis: Shortness of breath, multifactorial, secondary to suspected underlying cardiomyopathy, and LV dysfunction, chronic atrial fibrillation and a component of COPD and tracheobronchitis This is an 82-year-old white male with history of diabetes, chronic congestive heart failure, chronic atrial fibrillation, no documented history of COPD, patient had a very remote smoking history over 50 years ago, and normally he is not on any bronchodilators. Patient is mostly on multiple cardiac meds including Cardizem, Coreg, and enalapril, he is also on Lasix 40 mg daily. Patient is maintained on Coumadin, glipizide and metformin. Patient presented to the ER with 2 weeks history of increased shortness of breath, some cough, no fever no chills, complaining of occasional burping and wheezing. Upon arrival to the ER, patient was noted to be quite bronchospastic, he was given an updraft treatment, however he continued to wheeze. His chest x-ray showed no evidence of any significant disease, no pneumonia, no evidence of pulmonary edema, there is cardiomegaly, patient was admitted, and this consult was initiated. Presently the patient feels a bit better, less cough, less wheezing , no chest pain, no fever, no chills, no hemoptysis. No nausea no vomiting, but she continues to have intermittent burping symptoms. Denies any abdominal pain, no melena, no hematemesis, no dysuria and no frequency no urgency. On 05/12/2018 patient seen in follow-up on medical surgical floor. Denies any acute distress, lung sounds remain very congested, it the patient is able to bring up some whitish colored sputum. No complaints of chest pain, no hemoptysis, no fever, no chills. Currently on 2 L per nasal cannula. Vitals have been stable. Patient is being treated with oral Lasix, empiric antibiotic , and nebulized bronchodilators in addition to IV steroids. No acute events overnight, no specific complaints, his breathing is easier today. On 05/13/2018 patient seen in follow-up on medical surgical floor. Patient still has a persistent dry cough, lung sounds are still positive for diffuse wheezes, and rhonchi, overall improving. No chest pain, vital signs are stable , currently on 2 L per nasal cannula his pulse ox is 94%, this morning echocardiogram was completed showed preserved left ventricular systolic function with an EF [place] and 55 and 60%, evidence of mild aortic stenosis, mild TR. There is mild pulmonary hypertension with right ventricular systolic pressure of 37 mmHg. There is a small generalized pericardial effusion. Patient is on oral diuretics, and he is being treated for dyspnea related to a combination of tracheobronchitis and acute exacerbation of chronic diastolic heart failure Objective - Vital Signs Vital signs: Vital Signs Temp 97.7 F 05/13/18 07:00 Pulse 76 05/13/18 11:03 Resp 18 05/13/18 07:00 BP 111/53 05/13/18 07:00 Pulse Ox 97 05/13/18 07:14 Intake & Output 05/12/18 05/13/18 05/13/18 18:59 06:59 18:59 Other: Voiding Method Toilet # Voids 2 2 - Exam Physical Exam: Revealed an 82-year-old white male in no distress. Head: Atraumatic, normocephalic. HEENT:[Neck is supple.] [No neck masses.] [No thyromegaly.] [No JVD.] PERRLA, EOMI, no icterus. Chest: [Diffuse rhonchi, wheezing on forced expiratory maneuver is noted. Symmetrical chest expansion, no chest wall tenderness..] Cardiac Exam: [Irregular irregular rhythm, 2/6 systolic murmur thought the precordium.] Abdomen: [,Soft, nontender, no megaly, no rebound, no guarding, normal bowel sounds.] Extremities: [No clubbing, trace of bipedal edema, no cyanosis.] Neurological Exam: [No focal neurologic deficit. Lymphatics: No lymphadenopathy. Psychiatric: Normal mood, affect and mental status examination. Skin: No rashes.] - Labs CBC & Chem 7: 05/13/18 09:26 05/13/18 09:26 Labs: Abnormal Lab Results - Last 24 Hours (Table) 05/11/18 05/12/18 05/12/18 Range/Units 14:28 17:10 20:48 WBC (3.8-10.6) k/uL RBC (4.30-5.90) m/uL Neutrophils # (1.3-7.7) k/uL Lymphocytes # (1.0-4.8) k/uL PT (9.0-12.0) sec INR (<1.2) Chloride (98-107) mmol/L Carbon Dioxide (22-30) mmol/L BUN (9-20) mg/dL Creatinine (0.66-1.25) mg/dL Glucose (74-99) mg/dL POC Glucose (mg/dL) 206 H 190 H (75-99) mg/dL Hemoglobin A1c 6.5 H (4.0-6.0) % Total Protein (6.3-8.2) g/dL Albumin (3.5-5.0) g/dL 05/13/18 05/13/18 05/13/18 Range/Units 07:30 09:26 09:26 WBC 15.5 H (3.8-10.6) k/uL RBC 4.23 L (4.30-5.90) m/uL Neutrophils # 14.5 H (1.3-7.7) k/uL Lymphocytes # 0.5 L (1.0-4.8) k/uL PT 17.8 H (9.0-12.0) sec INR 2.0 H (<1.2) Chloride (98-107) mmol/L Carbon Dioxide (22-30) mmol/L BUN (9-20) mg/dL Creatinine (0.66-1.25) mg/dL Glucose (74-99) mg/dL POC Glucose (mg/dL) 239 H (75-99) mg/dL Hemoglobin A1c (4.0-6.0) % Total Protein (6.3-8.2) g/dL Albumin (3.5-5.0) g/dL 05/13/18 05/13/18 Range/Units 09:26 11:59 WBC (3.8-10.6) k/uL RBC (4.30-5.90) m/uL Neutrophils # (1.3-7.7) k/uL Lymphocytes # (1.0-4.8) k/uL PT (9.0-12.0) sec INR (<1.2) Chloride 112 H (98-107) mmol/L Carbon Dioxide 18 L (22-30) mmol/L BUN 58 H (9-20) mg/dL Creatinine 1.67 H (0.66-1.25) mg/dL Glucose 235 H (74-99) mg/dL POC Glucose (mg/dL) 155 H (75-99) mg/dL Hemoglobin A1c (4.0-6.0) % Total Protein 5.7 L (6.3-8.2) g/dL Albumin 3.2 L (3.5-5.0) g/dL Microbiology - Last 24 Hours (Table) 05/11/18 14:28 Blood Culture - Preliminary Blood No Growth after 24 hours Assessment and Plan Plan: 1 shortness of breath, multifactorial, suspect underlying cardiomyopathy and LV dysfunction, chronic atrial fibrillation, suspect some component of COPD and tracheobronchitis. 2 chronic atrial fibrillation 3 cardiomyopathy and LV dysfunction hence an echocardiogram was ordered. 4 acute. Tracheobronchitis with acute COPD exacerbation. 5 type 2 diabetes 6 benign essential hypertension 7 dyslipidemia. 8 suspect chronic kidney disease, stage III based on his GFR. However the possibility of cardiorenal syndrome is not entirely ruled out. Plan: Continue current medical treatment, IV steroids, oral diuretics, nebulized bronchodilators, and antibiotics. The echocardiogram were noted, patient has a preserved left ventricular systolic function. Patient is being treated for shortness of breath related to acute exacerbation chronic diastolic congestive heart failure, and tracheobronchitis. No worsening shortness of breath, vital signs remain stable, will continue to monitor, and make further recommendations the clinical course. I performed a history & physical examination of the patient and discussed their management with my nurse practitioner, Mary Copeland. I reviewed the nurse practitioner's note and agree with the documented findings and plan of care. Lung sounds are positive for diffuse rhonchi more so on the left. The findings and the impression was discussed with the patient. I attest to the documentation by the nurse practitioner. Time with Patient: Less than 30
[2018-05-13] MEDS: SODIUM CHLORIDE 0.9% 1,000 ML IV SCH (15:13)
[2018-05-13 17:21] LABS: Glucose,Whole Blood 184 mg/dL (75-99)
[2018-05-13] MEDS ORDERED: WARFARIN 5 MG TAB PO SCH (18:00)
[2018-05-13 20:55] LABS: Glucose,Whole Blood 261 mg/dL (75-99)
[2018-05-13] MEDS: AZITHROMYCIN 500 MG TAB PO SCH (22:10)
[2018-05-13] MEDS: guaiFENesin 600 MG TABLET.ER PO SCH (22:12)
[2018-05-14] MEDS: methylPREDNISolone SOD SUCCI 40 MG/ML 1 ML VIAL IV SCH ×2 (00:35→08:06)
[2018-05-14] MEDS: IPRATROPIUM-ALBUTEROL 3 ML NEB INHALATION SCH ×3 (03:43→11:17)
[2018-05-14 06:25] VITALS: BP 120/66; RESP 16; TEMP 98.2
[2018-05-14 07:21] LABS: Glucose,Whole Blood 192 mg/dL (75-99)
[2018-05-14] MEDS: INSULIN ASPART 100 UNIT/ML 1 ML 10 ML VIAL SQ SCH ×2 (08:04→13:08)
[2018-05-14] MEDS: CARVEDILOL 6.25 MG TAB PO SCH (08:05)
[2018-05-14] MEDS: PANTOPRAZOLE 40 MG TABLET PO SCH (08:05)
[2018-05-14] MEDS: DILTIAZEM CD 240 MG CAP.ER.24H PO SCH (08:07)
[2018-05-14] MEDS: FLUTICASONE 50MCG/SPRAY NASAL 16GM EA NOSTRIL SCH (08:07)
[2018-05-14] MEDS: FUROSEMIDE 40 MG TAB PO SCH (08:08)
[2018-05-14] MEDS: LISINOPRIL 20 MG TAB PO SCH (08:09)
[2018-05-14] MEDS: guaiFENesin 600 MG TABLET.ER PO SCH (08:09)
[2018-05-14] MEDS: metFORMIN 500 MG TAB PO SCH (08:10)
[2018-05-14] MEDS: PRAVASTATIN SODIUM 80 MG TAB PO SCH (08:10)
[2018-05-14] MEDS: POTASSIUM CHLORIDE ER 10 MEQ TAB.ER.PRT PO SCH (08:10)
[2018-05-14 08:28] LABS: Basophils % (A) 0 %; Eosinophils % (A) 0 %; HCT 39.9 % (39.0-53.0); HGB 13.2 gm/dL (13.0-17.5); Lymphocytes # (A) 0.4 k/uL (1.0-4.8); Lymphocytes % (A) 4 %; MCH 30.7 pg (25.0-35.0); MCHC 32.9 g/dL (31.0-37.0); MCV 93.3 fL (80.0-100.0); Mean Platelet Volume 7.8; Monocytes # (A) 0.3 k/uL (0-1.0); Monocytes % (A) 3 %; Neutrophils # (A) 9.7 k/uL (1.3-7.7); Neutrophils % (A) 93 %; Platelet Count 228 k/uL (150-450); RBC 4.28 m/uL (4.30-5.90); RDW 13.1 % (11.5-15.5); WBC 10.4 k/uL (3.8-10.6)
[2018-05-14 08:39] LABS: INR 2.4 (<1.2)
[2018-05-14 08:44] LABS: Albumin 3.1 g/dL (3.5-5.0); Calcium 8.6 mg/dL (8.4-10.2); Potassium 4.6 mmol/L (3.5-5.1); Total Bilirubin 0.5 mg/dL (0.2-1.3); Total Protein 5.5 g/dL (6.3-8.2)
--- NOTE | 2018-05-14 11:01 | P.PN ---
Subjective Progress Note Date: 05/14/18 Javon Chavira is an 82-year-old male patient of Dr. dunham who presented to [facility] emergency room with a chief complaint of worsening shortness of breath, he was evaluated in the emergency room preliminary diagnosis was acute exacerbation of chronic obstructive pulmonary disease, he was started on inhaled bronchodilators and IV steroids and was admitted to medical floor pulmonary consultation was requested. Patient does not have any clear history of chronic obstructive pulmonary disease he used to smoke but quit more than 50 years ago, he has known history of congestive heart failure, atrial fibrillation, hypertension, oog-saeqzby-zfgsfphyu diabetes mellitus and hypertension. Patient was seen and examined he states that he has been having worsening shortness of breath over the last several days he denies any chest pain he has been having cough without any sputum production no hemoptysis no palpitation no fever or chills no headache or dizziness no nausea or vomiting no abdominal pain no diarrhea no burning with urination no frequency or urgency and no hematuria On 05/13/2018 patient is currently alert and oriented 3 resting in bed. Patient is still complaining of dry nonproductive cough. Patient is maintained on azithromycin Solu-Medrol and Lasix at this time. Cardiology services are following 2-D echo has been ordered. The same patient denies chest pain. Patient denies any urinary burning or frequency. Patient denies nausea vomiting or diarrhea. On 05/14/2018 patient is currently alert and oriented 3. Patient is resting in bed. Patient states he is feeling improved from yesterday. Patient still having nonproductive cough. Patient remains on IV steroids and antibiotics at this time. Patient denies chest pain. Patient states shortness of breath is improved. Patient denies nausea vomiting or diarrhea. Patient denies any urinary burning or frequency Objective - Vital Signs Vital signs: Vital Signs Temp 98.2 F 05/14/18 06:23 Pulse 84 05/14/18 07:11 Resp 16 05/14/18 06:23 BP 120/66 05/14/18 06:23 Pulse Ox 94 L 05/14/18 06:23 Intake & Output 05/13/18 05/14/18 05/14/18 18:59 06:59 18:59 Intake Total 200 Balance 200 Weight 92.5 kg Intake: Oral 200 Other: Voiding Method Toilet # Voids 1 2 # Bowel Movements 1 - Exam Head normocephalic Neck supple Lungs scattered crackles bilaterally with mild wheezing Heart regular rate and rhythm S1-S2, no rub or gallop Abdomen is soft nontender nondistended positive bowel sounds no hepatosplenomegaly Extremities no edema Neuro alert and orientated to 3 - Labs CBC & Chem 7: 05/14/18 07:37 05/14/18 07:37 Labs: Abnormal Lab Results - Last 24 Hours (Table) 05/13/18 05/13/18 05/13/18 Range/Units 09:26 11:59 17:19 RBC (4.30-5.90) m/uL Neutrophils # (1.3-7.7) k/uL Lymphocytes # (1.0-4.8) k/uL PT (9.0-12.0) sec INR (<1.2) Chloride 112 H (98-107) mmol/L Carbon Dioxide 18 L (22-30) mmol/L BUN 58 H (9-20) mg/dL Creatinine 1.67 H (0.66-1.25) mg/dL Glucose 235 H (74-99) mg/dL POC Glucose (mg/dL) 155 H 184 H (75-99) mg/dL Total Protein 5.7 L (6.3-8.2) g/dL Albumin 3.2 L (3.5-5.0) g/dL 05/13/18 05/14/18 05/14/18 Range/Units 20:54 07:19 07:37 RBC (4.30-5.90) m/uL Neutrophils # (1.3-7.7) k/uL Lymphocytes # (1.0-4.8) k/uL PT (9.0-12.0) sec INR (<1.2) Chloride 111 H (98-107) mmol/L Carbon Dioxide 21 L (22-30) mmol/L BUN 57 H (9-20) mg/dL Creatinine 1.47 H (0.66-1.25) mg/dL Glucose 191 H (74-99) mg/dL POC Glucose (mg/dL) 261 H 192 H (75-99) mg/dL Total Protein 5.5 L (6.3-8.2) g/dL Albumin 3.1 L (3.5-5.0) g/dL 05/14/18 05/14/18 Range/Units 07:37 07:37 RBC 4.28 L (4.30-5.90) m/uL Neutrophils # 9.7 H (1.3-7.7) k/uL Lymphocytes # 0.4 L (1.0-4.8) k/uL PT 22.0 H (9.0-12.0) sec INR 2.4 H (<1.2) Chloride (98-107) mmol/L Carbon Dioxide (22-30) mmol/L BUN (9-20) mg/dL Creatinine (0.66-1.25) mg/dL Glucose (74-99) mg/dL POC Glucose (mg/dL) (75-99) mg/dL Total Protein (6.3-8.2) g/dL Albumin (3.5-5.0) g/dL Microbiology - Last 24 Hours (Table) 05/11/18 14:28 Blood Culture - Preliminary Blood No Growth after 48 hours Assessment and Plan Assessment: #1 acute purulent bronchitis. Per pulmonary services continue bronchodilators, steroids, antibiotics increased dose of Lasix to 40 mg twice a day. patient remains on IV steroids at this time #2 acute exacerbation of chronic obstructive pulmonary disease #3 underlying history of cardiomyopathy. Cardiology services are following. 2- D echo completed showing an EF of 55-60% #4 underlying history of atrial fibrillation, maintained on Coumadin. INR 2.4 #5 underlying history of [id number] diabetes mellitus #6 and history of hypertension #7 acute kidney injury. Initial creatinine 1.90 and bun 32. Repeat labs have been ordered. Creatinine improving to 1.47 and bun 57 . DVT prophylaxis Coumadin. GI prophylaxis Protonix I performed an examination of the patient and discussed their management with the Nurse Practitioner. I have reviewed the Nurse Practitioner's notes and agree with the documented findings and plan of care
[2018-05-14 11:28] VITALS: PULSE 76
[2018-05-14 11:53] LABS: Glucose,Whole Blood 202 mg/dL (75-99)
--- NOTE | 2018-05-14 12:28 | P.PN ---
Subjective This is a pleasant 82-year-old male past medical history significant for chronic diastolic heart failure, dyslipidemia, hypertension, chronic persistent atrial fibrillation on long-term anticoagulation and diabetes mellitus. He also has a history of former nicotine dependence, quit 20 years ago. Echocardiogram obtained reveals preserved left ventricular systolic function with ejection fraction 55-60%, mild aortic stenosis with a mean gradient of 8 mmHg and mild pulmonary hypertension with an RVSP of 37 mmHg. He is currently maintained on IV steroids, by mouth antibiotics, by mouth diuretics and breathing treatments. He states he is feeling much better overall. He denies chest pain, shortness of breath, dizziness or palpitations. Laboratory data reviewed, hemoglobin 13.2, platelets 228, INR 2.4, sodium 141 , potassium 4.6, creatinine 1.47. GENERAL: Well-appearing, well-nourished and in no acute distress. NECK: Supple without JVD or thyromegaly. LUNGS: Rhonchi noted, no wheezes or rales. Respiration equal and unlabored. HEART: Irregular rate and rhythm with systolic ejection murmur at the left sternal border, no rubs or gallops. S1 and S2 heard. EXTREMITIES: Normal range of motion, no edema. No clubbing or cyanosis. Peripheral pulses intact. ASSESSMENT Shortness of breath due to a combination of bronchitis and acute on chronic exacerbation of diastolic heart failure Chronic persistent atrial fibrillation on long-term anticoagulation with therapeutic INR Hypertension Dyslipidemia PLAN Continue current medical regimen. Stable from a cardiac perspective. Follow-up with Dr. Aranda in 2 weeks. Nurse Practitioner note has been reviewed, I agree with a documented findings and plan of care. Patient was seen and examined. Objective - Vital Signs Vital signs: Vital Signs Temp 98.2 F 05/14/18 06:23 Pulse 76 05/14/18 11:28 Resp 16 05/14/18 06:23 BP 120/66 05/14/18 06:23 Pulse Ox 94 L 05/14/18 06:23 Intake & Output 05/13/18 05/14/18 05/14/18 18:59 06:59 18:59 Intake Total 200 Balance 200 Weight 92.5 kg Intake: Oral 200 Other: Voiding Method Toilet Toilet # Voids 1 2 # Bowel Movements 1 - Labs CBC & Chem 7: 05/14/18 07:37 05/14/18 07:37 Labs: Abnormal Lab Results - Last 24 Hours (Table) 05/13/18 05/13/18 05/14/18 Range/Units 17:19 20:54 07:19 RBC (4.30-5.90) m/uL Neutrophils # (1.3-7.7) k/uL Lymphocytes # (1.0-4.8) k/uL PT (9.0-12.0) sec INR (<1.2) Chloride (98-107) mmol/L Carbon Dioxide (22-30) mmol/L BUN (9-20) mg/dL Creatinine (0.66-1.25) mg/dL Glucose (74-99) mg/dL POC Glucose (mg/dL) 184 H 261 H 192 H (75-99) mg/dL Total Protein (6.3-8.2) g/dL Albumin (3.5-5.0) g/dL 05/14/18 05/14/18 05/14/18 Range/Units 07:37 07:37 07:37 RBC 4.28 L (4.30-5.90) m/uL Neutrophils # 9.7 H (1.3-7.7) k/uL Lymphocytes # 0.4 L (1.0-4.8) k/uL PT 22.0 H (9.0-12.0) sec INR 2.4 H (<1.2) Chloride 111 H (98-107) mmol/L Carbon Dioxide 21 L (22-30) mmol/L BUN 57 H (9-20) mg/dL Creatinine 1.47 H (0.66-1.25) mg/dL Glucose 191 H (74-99) mg/dL POC Glucose (mg/dL) (75-99) mg/dL Total Protein 5.5 L (6.3-8.2) g/dL Albumin 3.1 L (3.5-5.0) g/dL 05/14/18 Range/Units 11:51 RBC (4.30-5.90) m/uL Neutrophils # (1.3-7.7) k/uL Lymphocytes # (1.0-4.8) k/uL PT (9.0-12.0) sec INR (<1.2) Chloride (98-107) mmol/L Carbon Dioxide (22-30) mmol/L BUN (9-20) mg/dL Creatinine (0.66-1.25) mg/dL Glucose (74-99) mg/dL POC Glucose (mg/dL) 202 H (75-99) mg/dL Total Protein (6.3-8.2) g/dL Albumin (3.5-5.0) g/dL Microbiology - Last 24 Hours (Table) 05/11/18 14:28 Blood Culture - Preliminary Blood No Growth after 48 hours
--- NOTE | 2018-05-14 12:47 | P.PN ---
Subjective Progress Note Date: 05/14/18 Principal diagnosis: Shortness of breath, multifactorial, secondary to suspected underlying cardiomyopathy, and LV dysfunction, chronic atrial fibrillation and a component of COPD and tracheobronchitis This is an 82-year-old white male with history of diabetes, chronic congestive heart failure, chronic atrial fibrillation, no documented history of COPD, patient had a very remote smoking history over 50 years ago, and normally he is not on any bronchodilators. Patient is mostly on multiple cardiac meds including Cardizem, Coreg, and enalapril, he is also on Lasix 40 mg daily. Patient is maintained on Coumadin, glipizide and metformin. Patient presented to the ER with 2 weeks history of increased shortness of breath, some cough, no fever no chills, complaining of occasional burping and wheezing. Upon arrival to the ER, patient was noted to be quite bronchospastic, he was given an updraft treatment, however he continued to wheeze. His chest x-ray showed no evidence of any significant disease, no pneumonia, no evidence of pulmonary edema, there is cardiomegaly, patient was admitted, and this consult was initiated. Presently the patient feels a bit better, less cough, less wheezing , no chest pain, no fever, no chills, no hemoptysis. No nausea no vomiting, but she continues to have intermittent burping symptoms. Denies any abdominal pain, no melena, no hematemesis, no dysuria and no frequency no urgency. On 05/12/2018 patient seen in follow-up on medical surgical floor. Denies any acute distress, lung sounds remain very congested, it the patient is able to bring up some whitish colored sputum. No complaints of chest pain, no hemoptysis, no fever, no chills. Currently on 2 L per nasal cannula. Vitals have been stable. Patient is being treated with oral Lasix, empiric antibiotic , and nebulized bronchodilators in addition to IV steroids. No acute events overnight, no specific complaints, his breathing is easier today. On 05/13/2018 patient seen in follow-up on medical surgical floor. Patient still has a persistent dry cough, lung sounds are still positive for diffuse wheezes, and rhonchi, overall improving. No chest pain, vital signs are stable , currently on 2 L per nasal cannula his pulse ox is 94%, this morning echocardiogram was completed showed preserved left ventricular systolic function with an EF [place] and 55 and 60%, evidence of mild aortic stenosis, mild TR. There is mild pulmonary hypertension with right ventricular systolic pressure of 37 mmHg. There is a small generalized pericardial effusion. Patient is on oral diuretics, and he is being treated for dyspnea related to a combination of tracheobronchitis and acute exacerbation of chronic diastolic heart failure On 05/14/2018 patient seen in follow-up on medical surgical floor. He sitting up on the edge of bed, currently on room air, no shortness of breath, no chest pain, patient states his breathing is much improved, lung sounds are essentially clear to auscultation, no rhonchi no wheezes no rales. No fever, no chills, he has been cleared for discharge by cardiology, patient is stable for discharge from pulmonary perspective as well, he will need follow-up in the outpatient setting to see Dr. Engle. Today's labs have been reviewed and showed WBC of 10.4, hemoglobin 13.2, INR of 2.4, BUN of 57, creatinine is 1.47, patient is renal profile is improving. No acute events or specific complaints Objective - Vital Signs Vital signs: Vital Signs Temp 98.2 F 05/14/18 06:23 Pulse 76 05/14/18 11:28 Resp 16 05/14/18 06:23 BP 120/66 05/14/18 06:23 Pulse Ox 94 L 05/14/18 06:23 Intake & Output 05/13/18 05/14/18 05/14/18 18:59 06:59 18:59 Intake Total 200 Balance 200 Weight 92.5 kg Intake: Oral 200 Other: Voiding Method Toilet Toilet # Voids 1 2 # Bowel Movements 1 - Exam Physical Exam: Revealed an 82-year-old white male in no distress. Head: Atraumatic, normocephalic. HEENT:[Neck is supple.] [No neck masses.] [No thyromegaly.] [No JVD.] PERRLA, EOMI, no icterus. Chest: [Lung sounds are clear] Cardiac Exam: [Irregular irregular rhythm, 2/6 systolic murmur thought the precordium.] Abdomen: [,Soft, nontender, no megaly, no rebound, no guarding, normal bowel sounds.] Extremities: [No clubbing, trace of bipedal edema, no cyanosis.] Neurological Exam: [No focal neurologic deficit. Lymphatics: No lymphadenopathy. Psychiatric: Normal mood, affect and mental status examination. Skin: No rashes.] - Labs CBC & Chem 7: 05/14/18 07:37 05/14/18 07:37 Labs: Abnormal Lab Results - Last 24 Hours (Table) 05/13/18 05/13/18 05/14/18 Range/Units 17:19 20:54 07:19 RBC (4.30-5.90) m/uL Neutrophils # (1.3-7.7) k/uL Lymphocytes # (1.0-4.8) k/uL PT (9.0-12.0) sec INR (<1.2) Chloride (98-107) mmol/L Carbon Dioxide (22-30) mmol/L BUN (9-20) mg/dL Creatinine (0.66-1.25) mg/dL Glucose (74-99) mg/dL POC Glucose (mg/dL) 184 H 261 H 192 H (75-99) mg/dL Total Protein (6.3-8.2) g/dL Albumin (3.5-5.0) g/dL 05/14/18 05/14/18 05/14/18 Range/Units 07:37 07:37 07:37 RBC 4.28 L (4.30-5.90) m/uL Neutrophils # 9.7 H (1.3-7.7) k/uL Lymphocytes # 0.4 L (1.0-4.8) k/uL PT 22.0 H (9.0-12.0) sec INR 2.4 H (<1.2) Chloride 111 H (98-107) mmol/L Carbon Dioxide 21 L (22-30) mmol/L BUN 57 H (9-20) mg/dL Creatinine 1.47 H (0.66-1.25) mg/dL Glucose 191 H (74-99) mg/dL POC Glucose (mg/dL) (75-99) mg/dL Total Protein 5.5 L (6.3-8.2) g/dL Albumin 3.1 L (3.5-5.0) g/dL 05/14/18 Range/Units 11:51 RBC (4.30-5.90) m/uL Neutrophils # (1.3-7.7) k/uL Lymphocytes # (1.0-4.8) k/uL PT (9.0-12.0) sec INR (<1.2) Chloride (98-107) mmol/L Carbon Dioxide (22-30) mmol/L BUN (9-20) mg/dL Creatinine (0.66-1.25) mg/dL Glucose (74-99) mg/dL POC Glucose (mg/dL) 202 H (75-99) mg/dL Total Protein (6.3-8.2) g/dL Albumin (3.5-5.0) g/dL Microbiology - Last 24 Hours (Table) 05/11/18 14:28 Blood Culture - Preliminary Blood No Growth after 48 hours Assessment and Plan Plan: 1 shortness of breath, multifactorial, suspect underlying cardiomyopathy and LV dysfunction, chronic atrial fibrillation, suspect some component of COPD and tracheobronchitis. 2 chronic atrial fibrillation 3 cardiomyopathy and LV dysfunction hence an echocardiogram was ordered. 4 acute. Tracheobronchitis with acute COPD exacerbation. 5 type 2 diabetes 6 benign essential hypertension 7 dyslipidemia. 8 suspect chronic kidney disease, stage III based on his GFR. However the possibility of cardiorenal syndrome is not entirely ruled out. Plan: Patient reports his breathing is much improved, signs are stable, no fever no chills, no shortness of breath or chest pain. He has been cleared for discharge by cardiology, from pulmonary perspective patient is stable for discharge as well, he can go home on prednisone taper, outpatient course of oral antibiotics, follow-up with Dr. De La Rosa in the office I performed a history & physical examination of the patient and discussed their management with my nurse practitioner, Mary Copeland. I reviewed the nurse practitioner's note and agree with the documented findings and plan of care. Lung sounds are clear. The findings and the impression was discussed with the patient. I attest to the documentation by the nurse practitioner. Time with Patient: Less than 30
--- NOTE | 2018-05-14 12:51 | P.DS ---
Providers Date of admission: 05/12/18 08:56 Expected date of discharge: 05/14/18 Attending physician: Rosalind Amaya Consults: 05/11/18 17:11 Consult Physician Routine Consulting Provider: Zenaida Engle Consult Reason/Comments: Asthmatic bronchitis, respiratory distress, pulmonary nodule Do you want consulting provider notified?: Yes 05/12/18 18:41 Consult Physician Routine Consulting Provider: Radhika Burgess Consult Reason/Comments: CHF Do you want consulting provider notified?: Yes Primary care physician: Nicole Little Hospital Course: Discharge diagnosis #1 acute purulent bronchitis. Per pulmonary services continue bronchodilators, steroids, antibiotics increased dose of Lasix to 40 mg twice a day. patient remains on IV steroids at this time. Patient has been cleared for discharge from pulmonary standpoint. Patient will be discharged home on Augmentin and prednisone taper #2 acute exacerbation of chronic obstructive pulmonary disease #3 underlying history of cardiomyopathy. Cardiology services are following. 2- D echo completed showing an EF of 55-60%. Has been cleared for discharge from pulmonary standpoint #4 underlying history of atrial fibrillation, maintained on Coumadin. INR 2.4 #5 underlying history of [id number]-srqrzyoue diabetes mellitus #6 and history of hypertension #7 acute kidney injury. Initial creatinine 1.90 and bun 32. Repeat labs have been ordered. Creatinine improving to 1.47 and bun 57 Hospital course Javon Chavira is an 82-year-old male patient of Dr. little who presented to [facility] emergency room with a chief complaint of worsening shortness of breath, he was evaluated in the emergency room preliminary diagnosis was acute exacerbation of chronic obstructive pulmonary disease, he was started on inhaled bronchodilators and IV steroids and was admitted to medical floor pulmonary consultation was requested. Patient does not have any clear history of chronic obstructive pulmonary disease he used to smoke but quit more than 50 years ago, he has known history of congestive heart failure, atrial fibrillation, hypertension, iar-bjloynn-elpziiddb diabetes mellitus and hypertension. Patient was seen and examined he states that he has been having worsening shortness of breath over the last several days he denies any chest pain he has been having cough without any sputum production no hemoptysis no palpitation no fever or chills no headache or dizziness no nausea or vomiting no abdominal pain no diarrhea no burning with urination no frequency or urgency and no hematuria On 05/13/2018 patient is currently alert and oriented 3 resting in bed. Patient is still complaining of dry nonproductive cough. Patient is maintained on azithromycin Solu-Medrol and Lasix at this time. Cardiology services are following 2-D echo has been ordered. The same patient denies chest pain. Patient denies any urinary burning or frequency. Patient denies nausea vomiting or diarrhea. On 05/14/2018 patient is currently alert and oriented 3. Patient is resting in bed. Patient states he is feeling improved from yesterday. Patient still having nonproductive cough. Patient remains on IV steroids and antibiotics at this time. Patient denies chest pain. Patient states shortness of breath is improved. Patient denies nausea vomiting or diarrhea. Patient denies any urinary burning or frequency Patient is eager to go home. Patient is feeling much improved. Patient has been cleared from cardiology and pulmonary services. Patient will go home on Augmentin antibiotic and prednisone taper. CMP follow-up her kidney function ordered for 2 days. PT/INR also ordered for 2 days. I performed an examination of the patient and discussed their management with the Nurse Practitioner. I have reviewed the Nurse Practitioner's notes and agree with the documented findings and plan of care Patient Condition at Discharge: Stable Plan - Discharge Summary Discharge Rx Participant: Yes New Discharge Prescriptions: New Amoxicillin/Potassium Clav [Augmentin 500-125 Tablet] 1 tab PO Q12HR 7 Days # 14 tab predniSONE 10 mg PO DIRECTED #30 tab Continue Pravastatin Sodium [Pravachol] 80 mg PO DAILY Furosemide [Lasix] 40 mg PO DAILY Potassium Chloride [Klor-Con 10] 10 meq PO DAILY glipiZIDE XL [Glucotrol XL] 5 mg PO DAILY metFORMIN HCL [Glucophage] 1,000 mg PO DAILY Warfarin Sodium [Coumadin] 2.5 mg PO SUTUWEFRSA Diltiazem HCl [Cardizem] 240 mg PO DAILY Omeprazole 20 mg PO DAILY Uledi-3 Fatty Acids/Fish Oil [Fish Oil 1,000 mg Softgel] 1 cap PO DAILY Fluticasone Nasal [place] [Flonase Nasal [place]] 1 spray EA NOSTRIL DAILY Carvedilol [Coreg] 6.25 mg PO BID Warfarin [Coumadin] 5 mg PO MOTH Enalapril [Vasotec] 20 mg PO DAILY Discharge Medication List Carvedilol [Coreg] 6.25 mg PO BID 05/11/18 [History] Diltiazem HCl [Cardizem] 240 mg PO DAILY 05/11/18 [History] Enalapril [Vasotec] 20 mg PO DAILY 05/11/18 [History] Fluticasone Nasal [place] [Flonase Nasal [place]] 1 spray EA NOSTRIL DAILY 05/11/18 [History] Furosemide [Lasix] 40 mg PO DAILY 05/11/18 [History] Uledi-3 Fatty Acids/Fish Oil [Fish Oil 1,000 mg Softgel] 1 cap PO DAILY [History] Omeprazole 20 mg PO DAILY 05/11/18 [History] Potassium Chloride [Klor-Con 10] 10 meq PO DAILY 05/11/18 [History] Pravastatin Sodium [Pravachol] 80 mg PO DAILY 05/11/18 [History] Warfarin Sodium [Coumadin] 2.5 mg PO SUTUWEFRSA 05/11/18 [History] Warfarin [Coumadin] 5 mg PO MOTH 05/11/18 [History] glipiZIDE XL [Glucotrol XL] 5 mg PO DAILY 05/11/18 [History] metFORMIN HCL [Glucophage] 1,000 mg PO DAILY 05/11/18 [History] Amoxicillin/Potassium Clav [Augmentin 500-125 Tablet] 1 tab PO Q12HR 7 Days #14 tab 05/14/18 [Rx] predniSONE 10 mg PO DIRECTED #30 tab 05/14/18 [Rx] Follow up Appointment(s)/Referral(s): Zenaida Engle MD [STAFF PHYSICIAN] - 1 Week Nicole Little MD [Primary Care Provider] - 1-2 days Yovany Aranda MD [STAFF PHYSICIAN] - 2 Weeks Ambulatory/Diagnostic Orders: Comprehensive Metabolic Panel [LAB.AMB] Time Frame: 2 Days, Location: None Selected Prothrombin Time INR [LAB.AMB] Time Frame: 2 Days, Location: None Selected Patient Instructions/Handouts: Acute Bronchitis (GEN) Activity/Diet/Wound Care/Special Instructions: Please schedule Pulmonary and Cardiac follow up appointment on same day activity as tolerated regular diet as tolerated Discharge Disposition: HOME SELF-CARE
== END 2018-05-14 14:38 | disposition home or self-care (01) | DRG 190 ==
LOC: EC 13:51 → 4MS4W 17:44 → OBSVTOIN 05-12 08:56
PROVIDERS: ADMIT Internal Medicine; ATTEND Internal Medicine
DX: J44.0 Chronic obstructive pulmonary disease with (acute) lower respiratory infection (principal); I50.33 Acute on chronic diastolic (congestive) heart failure; I31.3 Pericardial effusion (noninflammatory); I48.1 Persistent atrial fibrillation; N17.9 Acute kidney failure, unspecified; I42.9 Cardiomyopathy, unspecified; I43 Cardiomyopathy in diseases classified elsewhere; I11.0 Hypertensive heart disease with heart failure; J44.1 Chronic obstructive pulmonary disease with (acute) exacerbation; J20.9 Acute bronchitis, unspecified; Z87.891 Personal history of nicotine dependence; E11.9 Type 2 diabetes mellitus without complications; E78.5 Hyperlipidemia, unspecified; I27.20 Pulmonary hypertension, unspecified; I35.0 Nonrheumatic aortic (valve) stenosis; Z79.01 Long term (current) use of anticoagulants; Z79.52 Long term (current) use of systemic steroids; Z79.899 Other long term (current) drug therapy; Z96.641 Presence of right artificial hip joint; Z79.84 Long term (current) use of oral hypoglycemic drugs
CPT/HCPCS: 36415; 71046; 80053; 82550; 82553; 83036; 83735; 83880; 84484; 85025; 85610; 85730; 87040; 93005; 93306; 94640; 94760; 96374; 99285

== ENCOUNTER 2024-01-14 10:54 | Inpatient (IN) | payer MEDICARE, BC ==
[2024-01-14 10:59] LABS: Glucose,Whole Blood 217 mg/dL (70-110)
--- NOTE | 2024-01-14 11:05 | ED ---
SOB HPI - General Chief Complaint: Shortness of Breath Stated Complaint: hyperglycemic Time Seen by Provider: 01/14/24 11:03 Source: patient, RN notes reviewed, old records reviewed Mode of arrival: ambulatory Limitations: no limitations - History of Present Illness Initial Comments: This is an 88-year-old male who is not feeling well for a few days worse last night and severely worse today unable to get out of bed not doing his daily activities per the and did call feeling over to come to the emergency department today. Patient has shortness of breath confusion per family MD Complaint: shortness of breath, cough -: days(s) Severity: moderate Quality: sharp Consistency: constant Improves With: nothing Worsens With: nothing Known History Of: COPD, asthma Context: recent URI, anxiety, recent illness Associated Symptoms: cough, sputum production Treatments Prior to Arrival: oxygen - Related Data Home Medications Medication Instructions Recorded Confirmed Furosemide [Lasix] 40 mg PO DAILY 05/11/18 01/14/24 [place]-3 Fatty Acids/Fish Oil [Fish 1 cap PO DAILY 05/11/18 01/14/24 Oil 1,000 mg Softgel] Omeprazole 20 mg PO DAILY PRN 05/11/18 01/14/24 Potassium Chloride [Klor-Con 10 ER] 10 meq PO DAILY 05/11/18 01/14/24 Pravastatin Sodium [Pravachol] 80 mg PO DAILY 05/11/18 01/14/24 Warfarin Sodium [Coumadin] 2.5 mg PO DAILY 05/11/18 01/14/24 glipiZIDE XL [Glucotrol XL] 10 mg PO DAILY 05/11/18 01/14/24 metFORMIN HCL [Glucophage] 1,000 mg PO DAILY 05/11/18 01/14/24 Glucosamine/Chondr Harmon A Sod [Osteo 1 tab PO DAILY 01/14/24 01/14/24 Bi-Flex Caplet] Previous Rx's Medication Instructions Recorded amLODIPine [Norvasc] 5 mg PO DAILY 30 Days #30 tab 01/17/24 carvediloL [Coreg*] 25 mg PO BID-W/MEALS 30 Days #60 01/17/24 tab Allergies Allergy/AdvReac Type Severity Reaction Status Date / Time No Known Allergies Allergy Verified 01/14/24 13:59 Review of Systems ROS Statement: Those systems with pertinent positive or pertinent negative responses have been documented in the HPI. ROS Other: All systems not noted in ROS Statement are negative. Past Medical History Past Medical History: Heart Failure, Diabetes Mellitus, Hyperlipidemia, Hypertension History of Any Multi-Drug Resistant Organisms: None Reported Past Surgical History: Joint Replacement, Orthopedic Surgery, Prostate Surgery Additional Past Surgical History / Comment(s): right hip Past Anesthesia/Blood Transfusion Reactions: No Reported Reaction Past Psychological History: No Psychological Hx Reported Past Alcohol Use History: Occasional Past Drug Use History: None Reported General Exam Limitations: no limitations General appearance: alert, in no apparent distress Head exam: Present: atraumatic, normocephalic, normal inspection Eye exam: Present: normal appearance, PERRL, EOMI. Absent: scleral icterus, conjunctival injection, periorbital swelling ENT exam: Present: normal exam, mucous membranes moist Neck exam: Present: normal inspection. Absent: tenderness, meningismus, lymphadenopathy Respiratory exam: Present: normal lung sounds bilaterally. Absent: respiratory distress, wheezes, rales, rhonchi, stridor Cardiovascular Exam: Present: regular rate, normal rhythm, normal heart sounds. Absent: systolic murmur, diastolic murmur, rubs, gallop, clicks GI/Abdominal exam: Present: soft, normal bowel sounds. Absent: distended, tenderness, guarding, rebound, rigid Extremities exam: Present: normal inspection, full ROM, normal capillary refill. Absent: tenderness, pedal edema, joint swelling, calf tenderness Back exam: Present: normal inspection Neurological exam: Present: alert, oriented X3, CN II-XII intact Psychiatric exam: Present: normal affect, normal mood Skin exam: Present: warm, dry, intact, normal color. Absent: rash Course Vital Signs 01/14/24 01/14/24 01/14/24 10:55 11:09 11:13 Temperature 97.2 F L Pulse Rate 74 Respiratory 22 24 Rate Blood Pressure 128/72 O2 Sat by Pulse 85 L 95 Oximetry Fraction of Inspired Oxygen (FIO2) 01/14/24 01/14/24 01/14/24 11:55 12:03 12:16 Temperature Pulse Rate 66 64 Respiratory Rate Blood Pressure O2 Sat by Pulse 78 L Oximetry Fraction of 100 Inspired Oxygen (FIO2) 01/14/24 01/14/24 01/14/24 12:19 13:00 14:00 Temperature Pulse Rate 61 69 51 L Respiratory 30 H 16 18 Rate Blood Pressure 130/76 145/87 132/81 O2 Sat by Pulse 100 100 96 Oximetry Fraction of Inspired Oxygen (FIO2) 01/14/24 01/14/24 01/14/24 15:13 16:00 18:00 Temperature Pulse Rate 49 L 56 L Respiratory 27 H 16 Rate Blood Pressure 148/79 162/90 O2 Sat by Pulse 100 99 Oximetry Fraction of 50 Inspired Oxygen (FIO2) 01/14/24 01/14/24 01/14/24 19:22 19:57 21:44 Temperature Pulse Rate 57 L 73 Respiratory 24 24 Rate Blood Pressure 159/83 158/72 O2 Sat by Pulse 98 99 Oximetry Fraction of 50 Inspired Oxygen (FIO2) - Reevaluation(s) Reevaluation #1: 01/14/24 11:41 Records reviewed Reevaluation #2: 01/14/24 11:41 Patient symptoms improved Reevaluation #3: Patient informed of results and questions answered Reevaluation #4: Was pt. sent in by a medical professional or institution (, PA, PRIME MINISTER, urgent care, hospital, or halfway...) When possible be specific @ -no Did you speak to anyone other than the patient for history (EMS, parent, family, police, friend...)? What history was obtained from this source @ -no Did you review nursing and triage notes (agree or disagree)? Why? @ -agree Are old charts reviewed (outside hosp., previous admission, EMS record, old EKG, old radiological studies, urgent care reports/EKG's, halfway records)? Report findings @ -yes Differential Diagnosis (chest pain, altered mental status, abdominal pain women, abdominal pain men, vaginal bleeding, weakness, fever, dyspnea, syncope, headache, dizziness, GI bleed, back pain, seizure, CVA, palpatations, mental health, musculoskeletal)? @ -prior EKG interpreted by me (3pts min.). @ -yes X-rays interpreted by me (1pt min.). @ -yes negative for acute disease CT interpreted by me (1pt min.). @ -no U/S interpreted by me (1pt. min.). @ -no What testing was considered but not performed or refused? (CT, X-rays, U/S, labs)? Why? @ -none What meds were considered but not given or refused? Why? @ -none Did you discuss the management of the patient with other professionals (professionals i.e. , PA, PRIME MINISTER, lab, RT, psych nurse, social scientist, fur polisher, teacher, consular officer, director of casework department)? Give summary @ -no Was smoking cessation discussed for >3mins.? @ -no Was critical care preformed (if so, how long)? @ -yes31 Were there social determinants of health that impacted care today? How? (Homelessness, low income, unemployed, alcoholism, drug addiction, transport ation, low edu. Level, literacy, decrease access to med. care, long-term, rehab)? @ -none Was there de-escalation of care discussed even if they declined (Discuss DNR or withdrawal of care, Hospice)? DNR status @ -no What co-morbidities impacted this encounter? (DM, HTN, Smoking, COPD, CAD, Cancer, CVA, ARF, Chemo, Hep., AIDS, mental health diagnosis, sleep apnea, morbid obesity)? @ -none Was patient admitted / discharged? Hospital course, mention meds given and route, prescriptions, significant lab abnormalities, going to OR and other pertinent info. @ - 88 male to the ER for evaluation patient will be admitted for severe shortness of breath and hypoxia respiratory failure on BiPAP with CHF and underlying asthmatic bronchitis Admitted Undiagnosed new problem with uncertain prognosis? @ -no Drug Therapy requiring intensive monitoring for toxicity (Heparin, Nitro, Insulin, Cardizem)? @ -no Were any procedures done? @ -no Diagnosis/symptom? @ -COPD and hypoxia with BiPAP Acute, or Chronic, or Acute on Chronic? @ -Acute Uncomplicated (without systemic symptoms) or Complicated (systemic symptoms)? @ -Complicated Side effects of treatment? @ -no Exacerbation, Progression, or Severe Exacerbation? @ -exacerbation Poses a threat to life or bodily function? How? (Chest pain, [place], [place], pneumonia, PE, COPD, DKA, ARF, appy, cholecystitis, CVA, Diverticulitis, Homicidal, Suicidal, threat to staff... and all critical care pts) @ -yes respiratory failure with hypoxia Reevaluation #5: Differential Dyspnea: Coronary syndrome, arrhythmia, tamponade, asthma, COPD, pulmonary embolism, pneumonia, pneumothorax, pulmonary effusion, anaphylaxis, diabetic ketoacidosis, flailed chest, pulmonary contusion, diaphragmatic rupture, anemia, neuromuscular, this is not meant to be an all-inclusive list. - Consultations Consultation #1: Spoke with admitting physicians who agreed to admit this patient Medical Decision Making - Medical Decision Making 88 male to the ER for evaluation patient will be admitted for severe shortness of breath and hypoxia respiratory failure on BiPAP with CHF and underlying asthmatic bronchitis - Lab Data Result diagrams: 01/17/24 07:27 01/17/24 07:27 Lab Results 01/14/24 01/14/24 01/14/24 Range/Units 10:57 11:34 11:34 WBC 13.3 H (3.8-10.6) k/uL RBC 4.24 L (4.30-5.90) m/uL Hgb 11.8 L (13.0-17.5) gm/dL Hct 38.7 L (39.0-53.0) % MCV 91.1 (80.0-100.0) fL MCH 27.8 (25.0-35.0) pg MCHC 30.6 L (31.0-37.0) g/dL RDW 15.5 (11.5-15.5) % Plt Count 385 (150-450) k/uL MPV 9.4 Neutrophils % 88 % Lymphocytes % 5 % Monocytes % 6 % Eosinophils % 0 % Basophils % 0 % Neutrophils # 11.7 H (1.3-7.7) k/uL Lymphocytes # 0.6 L (1.0-4.8) k/uL Monocytes # 0.8 (0-1.0) k/uL Eosinophils # 0.0 (0-0.7) k/uL Basophils # 0.0 (0-0.2) k/uL Hypochromasia Slight PT 18.1 H (10.0-12.5) sec INR 1.8 H (<1.2) APTT 28.4 (22.0-30.0) sec Sodium (137-145) mmol/L Potassium (3.5-5.1) mmol/L Chloride (98-107) mmol/L Carbon Dioxide (22-30) mmol/L Anion Gap mmol/L BUN (9-20) mg/dL Creatinine (0.66-1.25) mg/dL Est GFR (CKD-EPI)AfAm (>60 ml/min/1.73 sqM) Est GFR (CKD-EPI)NonAf (>60 ml/min/1.73 sqM) Glucose (74-99) mg/dL POC Glucose (mg/dL) 217 H (70-110) mg/dL POC Glu Histology Manager ID Namita Arroyo Calcium (8.4-10.2) mg/dL Magnesium (1.6-2.3) mg/dL Total Bilirubin (0.2-1.3) mg/dL AST (17-59) U/L ALT (4-49) U/L Alkaline Phosphatase (38-126) U/L Troponin I (0.000-0.034) ng/mL NT-Pro-B Natriuret Pep pg/mL Total Protein (6.3-8.2) g/dL Albumin (3.5-5.0) g/dL 01/14/24 01/14/24 Range/Units 11:34 11:34 WBC (3.8-10.6) k/uL RBC (4.30-5.90) m/uL Hgb (13.0-17.5) gm/dL Hct (39.0-53.0) % MCV (80.0-100.0) fL MCH (25.0-35.0) pg MCHC (31.0-37.0) g/dL RDW (11.5-15.5) % Plt Count (150-450) k/uL MPV Neutrophils % % Lymphocytes % % Monocytes % % Eosinophils % % Basophils % % Neutrophils # (1.3-7.7) k/uL Lymphocytes # (1.0-4.8) k/uL Monocytes # (0-1.0) k/uL Eosinophils # (0-0.7) k/uL Basophils # (0-0.2) k/uL Hypochromasia PT (10.0-12.5) sec INR (<1.2) APTT (22.0-30.0) sec Sodium 133 L (137-145) mmol/L Potassium 5.9 H (3.5-5.1) mmol/L Chloride 103 (98-107) mmol/L Carbon Dioxide 20 L (22-30) mmol/L Anion Gap 10 mmol/L BUN 30 H (9-20) mg/dL Creatinine 1.72 H (0.66-1.25) mg/dL Est GFR (CKD-EPI)AfAm 40 (>60 ml/min/1.73 sqM) Est GFR (CKD-EPI)NonAf 35 (>60 ml/min/1.73 sqM) Glucose 219 H (74-99) mg/dL POC Glucose (mg/dL) (70-110) mg/dL POC Glu Histology Manager ID Calcium 9.4 (8.4-10.2) mg/dL Magnesium 1.8 (1.6-2.3) mg/dL Total Bilirubin 0.8 (0.2-1.3) mg/dL AST 27 (17-59) U/L ALT 17 (4-49) U/L Alkaline Phosphatase 51 (38-126) U/L Troponin I 0.225 H* (0.000-0.034) ng/mL NT-Pro-B Natriuret Pep 05496 pg/mL Total Protein 6.1 L (6.3-8.2) g/dL Albumin 3.8 (3.5-5.0) g/dL - EKG Data -: EKG Interpreted by Me (EKG is A-fib 66 QRS 97 QTc 437) - Radiology Data Radiology results: report reviewed (Chest x-ray is positive for CHF), image reviewed Critical Care Time Critical Care Time: Yes Total Critical Care Time: 31 Disposition Clinical Impression: Congestive heart failure, Acute pulmonary edema, Hypoxia, Adult respiratory d istress syndrome, Acute respiratory failure Disposition: ADMITTED IP TO THIS HOSP Condition: Fair Is patient prescribed a controlled substance at d/c from ED?: No
[2024-01-14 11:52] LABS: ALT 17 U/L (4-49); AST 27 U/L (17-59); African American GFR (CKD) 40 (>60 ml/min/1.73 sqM); Albumin 3.8 g/dL (3.5-5.0); Alkaline Phosphatase 51 U/L (38-126); Anion Gap 10 mmol/L; Blood Urea Nitrogen 30 mg/dL (9-20); Calcium 9.4 mg/dL (8.4-10.2); Carbon Dioxide 20 mmol/L (22-30); Chloride 103 mmol/L (98-107); Glucose 219 mg/dL (74-99); Magnesium 1.8 mg/dL (1.6-2.3); Non-African American GFR(CKD) 35 (>60 ml/min/1.73 sqM); Potassium 5.9 mmol/L (3.5-5.1); Sodium 133 mmol/L (137-145); Total Bilirubin 0.8 mg/dL (0.2-1.3); Total Protein 6.1 g/dL (6.3-8.2)
[2024-01-14 11:54] LABS: Basophils % (A) 0 %; Eosinophils % (A) 0 %; HCT 38.7 % (39.0-53.0); HGB 11.8 gm/dL (13.0-17.5); Hypochromasia Slight; INR 1.8 (<1.2); Lymphocytes # (A) 0.6 k/uL (1.0-4.8); Lymphocytes % (A) 5 %; MCH 27.8 pg (25.0-35.0); MCHC 30.6 g/dL (31.0-37.0); MCV 91.1 fL (80.0-100.0); Mean Platelet Volume 9.4; Monocytes # (A) 0.8 k/uL (0-1.0); Monocytes % (A) 6 %; Neutrophils # (A) 11.7 k/uL (1.3-7.7); Neutrophils % (A) 88 %; Partial Thromboplastin Time 28.4 sec (22.0-30.0); Platelet Count 385 k/uL (150-450); Prothrombin Time 18.1 sec (10.0-12.5); RBC 4.24 m/uL (4.30-5.90); RDW 15.5 % (11.5-15.5); WBC 13.3 k/uL (3.8-10.6)
[2024-01-14] MEDS: IPRATROPIUM-ALBUTEROL 3 ML NEB INHALATION STA (11:54)
[2024-01-14 12:00] LABS: NT-Pro-B-Type Natriuretic Pept 12400 pg/mL
--- NOTE | 2024-01-14 12:23 | XR ---
EXAMINATION TYPE: XR chest 1V portable DATE OF EXAM: 01/14/2024 COMPARISON: 05/11/2018 INDICATION: Short of breath TECHNIQUE: Single frontal view of the chest is obtained. FINDINGS: The heart size is enlarged. The pulmonary vasculature is prominent. Diffuse increased lung markings are present bilaterally greater in the lung bases. Correlate for pulm onary edema. Follow-up is recommended. IMPRESSION: 1. Clinical correlation recommended for congestive heart failure. Follow-up chest exam is recommended .
[2024-01-14] MEDS: FUROSEMIDE 10 MG/ML 10 ML VIAL IV STA (13:05)
[2024-01-14] MEDS ORDERED: IPRATROPIUM-ALBUTEROL 3 ML NEB INHALATION PRN (13:49)
[2024-01-14] MEDS ORDERED: DEXTROSE 50% SYRINGE 50 ML IVP PRN ×2 (14:38)
[2024-01-14] MEDS ORDERED: NON FORMULARY DRUG (Omeprazole [Omeprazole] 20 MG Capsule.Dr) PO PRN (14:39)
--- NOTE | 2024-01-14 14:44 | P.HPIM ---
History of Present Illness H&P Date: 01/14/24 this is an 88-year-old male patient of Dr. Little who presented with increased shortness of breath that has been increasing over the past few days.patient has past medical history of congestive heart failure, diabetes mellitus, hyperlipidemia and hypertension. Chest x-ray completed showing clinical correlation recommended for congestive heart failure. BNP elevated at 12,400. Troponin also elevated at 0.225, creatinine 1.7 to 1:30 potassium 5.9. Patient's INR 1.8 patient is maintained on home dose Coumadin for atrial fibrillation. White blood cell 13.3 and hemoglobin 11.8. Per ER patient was started on BiPAP and IV Lasix. Cardiology and pulmonary service is consulted. 2-D echo has been ordered. cardiology, pulmonary and nephrology service is consulted. At this time patient is resting comfortably in bed on BiPAP. Patient denies any chest pain. Patient denies nausea vomiting or diarrhea. Patient denies any urinary burning or frequency Review of Systems please refer to HPI otherwise unremarkable Past Medical History Past Medical History: Heart Failure, Diabetes Mellitus, Hyperlipidemia, Hypertension History of Any Multi-Drug Resistant Organisms: None Reported Past Surgical History: Joint Replacement, Orthopedic Surgery, Prostate Surgery Additional Past Surgical History / Comment(s): right hip Past Anesthesia/Blood Transfusion Reactions: No Reported Reaction Past Psychological History: No Psychological Hx Reported Past Alcohol Use History: Occasional Past Drug Use History: None Reported Medications and Allergies Home Medications Medication Instructions Recorded Confirmed Type Enalapril [Vasotec] 20 mg PO BID 05/11/18 01/14/24 History Furosemide [Lasix] 40 mg PO DAILY 05/11/18 01/14/24 History [place]-3 Fatty Acids/Fish Oil [Fish 1 cap PO DAILY 05/11/18 01/14/24 History Oil 1,000 mg Softgel] Omeprazole 20 mg PO DAILY PRN 05/11/18 01/14/24 History Potassium Chloride [Klor-Con 10 ER] 10 meq PO DAILY 05/11/18 01/14/24 History Pravastatin Sodium [Pravachol] 80 mg PO DAILY 05/11/18 01/14/24 History Warfarin Sodium [Coumadin] 2.5 mg PO DAILY 05/11/18 01/14/24 History carvediloL [Coreg] 6.25 mg PO BID 05/11/18 01/14/24 History dilTIAZem HCL [Cardizem] 240 mg PO DAILY 05/11/18 01/14/24 History glipiZIDE XL [Glucotrol XL] 10 mg PO DAILY 05/11/18 01/14/24 History metFORMIN HCL [Glucophage] 1,000 mg PO DAILY 05/11/18 01/14/24 History Glucosamine/Chondr Harmon A Sod [Osteo 1 tab PO DAILY 01/14/24 01/14/24 History Bi-Flex Caplet] Allergies Allergy/AdvReac Type Severity Reaction Status Date / Time No Known Allergies Allergy Verified 01/14/24 13:59 Physical Exam Vitals: Vital Signs Temp Pulse Resp BP Pulse Ox FiO2 01/14/24 14:00 51 L 18 132/81 96 01/14/24 13:00 69 16 145/87 100 01/14/24 12:19 61 30 H 130/76 100 01/14/24 12:16 78 L 100 01/14/24 12:03 64 01/14/24 11:55 66 01/14/24 11:13 95 01/14/24 11:09 24 01/14/24 10:55 97.2 F L 74 22 128/72 85 L Intake and Output 01/13/24 01/14/24 01/14/24 22:59 06:59 14:59 Other: Weight 81.647 kg Head normocephalic Neck supple Lungs clear to auscultation bilaterally no wheezing or crackles Heart regular rate and rhythm S1-S2, no rub or gallop Abdomen is soft nontender nondistended positive bowel sounds no hepatosplenomegaly Extremities no edema Neuro alert and orientated to 3 Results CBC & Chem 7: 01/14/24 11:34 01/14/24 11:34 Labs: Abnormal Lab Results - Last 24 Hours (Table) 01/14/24 01/14/24 01/14/24 Range/Units 10:57 11:34 11:34 WBC 13.3 H (3.8-10.6) k/uL RBC 4.24 L (4.30-5.90) m/uL Hgb 11.8 L (13.0-17.5) gm/dL Hct 38.7 L (39.0-53.0) % MCHC 30.6 L (31.0-37.0) g/dL Neutrophils # 11.7 H (1.3-7.7) k/uL Lymphocytes # 0.6 L (1.0-4.8) k/uL PT 18.1 H (10.0-12.5) sec INR 1.8 H (<1.2) Sodium (137-145) mmol/L Potassium (3.5-5.1) mmol/L Carbon Dioxide (22-30) mmol/L BUN (9-20) mg/dL Creatinine (0.66-1.25) mg/dL Glucose (74-99) mg/dL POC Glucose (mg/dL) 217 H (70-110) mg/dL Troponin I (0.000-0.034) ng/mL Total Protein (6.3-8.2) g/dL 01/14/24 01/14/24 Range/Units 11:34 11:34 WBC (3.8-10.6) k/uL RBC (4.30-5.90) m/uL Hgb (13.0-17.5) gm/dL Hct (39.0-53.0) % MCHC (31.0-37.0) g/dL Neutrophils # (1.3-7.7) k/uL Lymphocytes # (1.0-4.8) k/uL PT (10.0-12.5) sec INR (<1.2) Sodium 133 L (137-145) mmol/L Potassium 5.9 H (3.5-5.1) mmol/L Carbon Dioxide 20 L (22-30) mmol/L BUN 30 H (9-20) mg/dL Creatinine 1.72 H (0.66-1.25) mg/dL Glucose 219 H (74-99) mg/dL POC Glucose (mg/dL) (70-110) mg/dL Troponin I 0.225 H* (0.000-0.034) ng/mL Total Protein 6.1 L (6.3-8.2) g/dL Assessment and Plan Assessment: 1. Acute CHF exacerbation 2. Hypoxia secondary to acute CHF exacerbation 3. Acute kidney injury with hyperkalemia 4. Elevated troponin 5. History of atrial fibrillation 6. History of cardiomyopathy 7. History of diabetes mellitus 8. History of essential hypertension cardiology, pulmonary and nephrology service is consulted 2-D echo ordered Repeat labs ordered UA ordered Patient started on IV Lasix Time with Patient: Greater than 30 (Greater than 60% of the total time spent in counseling and coordination of care)
[2024-01-14] MEDS ORDERED: HEPARIN SODIUM 1,000 UN/ML (10ML VL) IV PRN (16:30)
[2024-01-14] MEDS: HEPARIN SOD,PORK IN 0.45% NACL 25,000 UNIT in 0.45% NACL 1 250ML.BAG IV SCH (16:44)
[2024-01-14] MEDS: HEPARIN SODIUM 1,000 UN/ML (10ML VL) IV ONE (16:49)
--- NOTE | 2024-01-14 17:28 | P.CNPUL ---
History of Present Illness Consult date: 01/14/24 Requesting physician: Rosalind Amaya Reason for consult: dyspnea, hypoxemia Chief complaint: Shortness of breath, weakness History of present illness: This is a pleasant 88-year-old male patient with a known history of congestive heart failure, diabetes mellitus, hypertension, hyperlipidemia, atrial fibrillation anticoagulated with warfarin. Over the past several days he had not been feeling well. He was developing increasing shortness of breath, weakness and some confusion. He was brought into the emergency room earlier this morning for the same. EKG revealed atrial fibrillation with a controlled ventricular response. Chest x-ray revealed evidence of pulmonary vascular congestion and congestive heart failure. White count 13.3. Hemoglobin 11.8. Platelets 385. INR 1.8. Sodium 133. Potassium 5.9. Bicarb 20. BUN 30. Creatinine 1.72. Glucose 219. Troponin 0.225, 0.257. proBNP 12,400. He is seen today in consultation in the emergency department. He is alert. He is requiring BiPAP support currently 12/6 and 50% FiO2. He is having ongoing shortness of breath. Denies any chest pain. He has been initiated on DuoNeb inhalations, IV diuretics, heparin drip. Review of Systems REVIEW OF SYSTEMS: CONSTITUTIONAL: Altered mental status, generalized weakness. Denies any recent significant weight loss or weight gain. EYES: Denies change in vision. EARS, NOSE, MOUTH, THROAT: Denies headaches, denies sore throat. CARDIOVASCULAR: Denies chest pain, palpitations or syncopal episodes. RESPIRATORY: Positive for shortness of breath, cough, congestion no hemoptysis. GASTROINTESTINAL: Denies change in appetite, denies abdominal pain GENITOURINARY: Denies hematuria, denies infections. MUSKULOSKELETAL: Denies pain, denies swelling. INTEGUMENTARY: Denies rash, denies eczema. NEUROLOGICAL: Denies recent memory loss, no recent seizure activity. PSYCHIATRIC: Denies anxiety, denies depression. HEMATOLOGIC/LYMPHATIC: Denies anemia, denies enlarged lymph nodes. Past Medical History Past Medical History: Heart Failure, Diabetes Mellitus, Hyperlipidemia, Hypertension History of Any Multi-Drug Resistant Organisms: None Reported Past Surgical History: Joint Replacement, Orthopedic Surgery, Prostate Surgery Additional Past Surgical History / Comment(s): right hip Past Anesthesia/Blood Transfusion Reactions: No Reported Reaction Past Psychological History: No Psychological Hx Reported Past Alcohol Use History: Occasional Past Drug Use History: None Reported Medications and Allergies Home Medications Medication Instructions Recorded Confirmed Type Enalapril [Vasotec] 20 mg PO BID 05/11/18 01/14/24 History Furosemide [Lasix] 40 mg PO DAILY 05/11/18 01/14/24 History [place]-3 Fatty Acids/Fish Oil [Fish 1 cap PO DAILY 05/11/18 01/14/24 History Oil 1,000 mg Softgel] Omeprazole 20 mg PO DAILY PRN 05/11/18 01/14/24 History Potassium Chloride [Klor-Con 10 ER] 10 meq PO DAILY 05/11/18 01/14/24 History Pravastatin Sodium [Pravachol] 80 mg PO DAILY 05/11/18 01/14/24 History Warfarin Sodium [Coumadin] 2.5 mg PO DAILY 05/11/18 01/14/24 History carvediloL [Coreg] 6.25 mg PO BID 05/11/18 01/14/24 History dilTIAZem HCL [Cardizem] 240 mg PO DAILY 05/11/18 01/14/24 History glipiZIDE XL [Glucotrol XL] 10 mg PO DAILY 05/11/18 01/14/24 History metFORMIN HCL [Glucophage] 1,000 mg PO DAILY 05/11/18 01/14/24 History Glucosamine/Chondr Harmon A Sod [Osteo 1 tab PO DAILY 01/14/24 01/14/24 History Bi-Flex Caplet] Allergies Allergy/AdvReac Type Severity Reaction Status Date / Time No Known Allergies Allergy Verified 01/14/24 13:59 Physical Exam Vitals: Vital Signs Temp Pulse Resp BP Pulse Ox FiO2 01/14/24 16:00 49 L 27 H 148/79 100 01/14/24 15:13 50 01/14/24 14:00 51 L 18 132/81 96 01/14/24 13:00 69 16 145/87 100 01/14/24 12:19 61 30 H 130/76 100 01/14/24 12:16 78 L 100 01/14/24 12:03 64 01/14/24 11:55 66 01/14/24 11:13 95 01/14/24 11:09 24 01/14/24 10:55 97.2 F L 74 22 128/72 85 L Intake and Output 01/14/24 01/14/24 01/14/24 06:59 14:59 22:59 Other: Weight 81.647 kg GENERAL EXAM: Alert, pleasant 88-year-old male patient, on BiPAP 12/6 and 50% FiO2, fairly comfortable in no apparent distress. HEAD: Normocephalic. EYES: Normal reaction of pupils, equal size. NOSE: Clear with pink turbinates. THROAT: No erythema or exudates. NECK: No masses, no JVD. CHEST: No chest wall deformity. LUNGS: Equal air entry with crackles in the bilateral bases. CVS: S1 and S2 normal with no audible murmur, irregular rhythm. ABDOMEN: No hepatosplenomegaly, normal bowel sounds, no guarding or rigidity. SPINE: No scoliosis or deformity SKIN: No rashes CENTRAL NERVOUS SYSTEM: No focal deficits, tone is normal in all 4 extremities. EXTREMITIES: There is trace peripheral edema. No clubbing, no cyanosis. Peripheral pulses are intact. Results - Laboratory Findings CBC and BMP: 01/14/24 11:34 01/14/24 11:34 PT/INR, D-dimer PT 18.1 sec (10.0-12.5) H 01/14/24 11:34 INR 1.8 (<1.2) H 01/14/24 11:34 Abnormal lab findings: Abnormal Labs 01/14/24 01/14/24 01/14/24 10:57 11:34 11:34 WBC 13.3 H RBC 4.24 L Hgb 11.8 L Hct 38.7 L MCHC 30.6 L Neutrophils # 11.7 H Lymphocytes # 0.6 L PT 18.1 H INR 1.8 H Sodium Potassium Carbon Dioxide BUN Creatinine Glucose POC Glucose (mg/dL) 217 H Troponin I Total Protein 01/14/24 01/14/24 01/14/24 11:34 11:34 14:51 WBC RBC Hgb Hct MCHC Neutrophils # Lymphocytes # PT INR Sodium 133 L Potassium 5.9 H Carbon Dioxide 20 L BUN 30 H Creatinine 1.72 H Glucose 219 H POC Glucose (mg/dL) Troponin I 0.225 H* 0.257 H* Total Protein 6.1 L - Diagnostic Findings Chest x-ray: image reviewed Assessment and Plan Assessment: Acute hypoxemic respiratory failure secondary to an acute exacerbation of diastolic versus systolic congestive heart failure Atrial fibrillation with a controlled ventricular response anticoagulated with warfarin, INR 1.8 Troponin leak suspect secondary to above versus non-ST segment elevation myocardial infarction Diabetes mellitus Hypertension Hyperlipidemia Plan: The patient was seen and evaluated Chest x-ray, labs and medications reviewed Continue with BiPAP support for now Titrate the FiO2 as tolerated Continue with IV diuretics Continue heparin drip Cardiology consult CODE STATUS to be addressed We will continue to follow and make further recommendations based on his clinical status I have personally seen and examined the patient, performed the documentation and the assessment and plan as written. Number of minutes spent on the visit: 20.
[2024-01-14] MEDS: SODIUM CHLORIDE 0.9% 1,000 ML IV SCH (17:41)
[2024-01-14] MEDS: INSULIN ASPART (NovoLOG) 100 UNIT/ML VIAL SQ SCH (17:41)
[2024-01-14 21:44] LABS: Glucose,Whole Blood 82 mg/dL (70-110)
[2024-01-14] MEDS: FUROSEMIDE 10 MG/ML 4 ML VIAL IV SCH (22:40)
[2024-01-14] MEDS ORDERED: hydrALAZINE HCL 20 MG/ML 1 ML VIAL IVP PRN (23:19)
[2024-01-14] MEDS: FUROSEMIDE 10 MG/ML 4 ML VIAL IV STA (23:55)
[2024-01-15 00:25] LABS: Appearance,Urine Clear (Clear); Bilirubin,Urine Negative (Negative); Blood,Urine Negative (Negative); Color,Urine Colorless; Glucose,Urine (UA) Negative (Negative); Ketones,Urine Negative (Negative); Leukocyte Esterase,Urine Negative (Negative); Nitrite,Urine Negative (Negative); Protein,Urine Trace (Negative); Urobilinogen,Urine <2.0 mg/dL (<2.0)
[2024-01-15] MEDS: carvediloL 6.25 MG TAB PO SCH (01:58)
--- NOTE | 2024-01-15 04:42 | XR ---
EXAM: XR Chest, 1 View CLINICAL HISTORY: shortness of breath TECHNIQUE: Frontal view of the chest. COMPARISON: Same day at 1211 hour FINDINGS: Lungs: Large amount of airspace opacities throughout right lung, increased. Small to moderate amount of airspace opacities throughout left lung, similar. Pleural space: Unremarkable. Heart: Cardiomegaly. Mediastinum: Unremarkable. Normal mediastinal contour. Bones/joints: No acute findings. Vasculature: Calcified aorta. IMPRESSION: Large amount of airspace opacities in right lung, increased.
[2024-01-15] MEDS: PANTOPRAZOLE 40 MG TABLET PO SCH (06:16)
[2024-01-15 06:18] LABS: Glucose,Whole Blood 84 mg/dL (70-110)
[2024-01-15 07:16] LABS: Basophils % (A) 0 %; Eosinophils % (A) 0 %; HCT 32.6 % (39.0-53.0); HGB 10.4 gm/dL (13.0-17.5); Hypochromasia Slight; Lymphocytes # (A) 0.9 k/uL (1.0-4.8); Lymphocytes % (A) 7 %; MCH 29.2 pg (25.0-35.0); MCV 91.3 fL (80.0-100.0); Mean Platelet Volume 9.2; Monocytes # (A) 0.6 k/uL (0-1.0); Monocytes % (A) 5 %; Neutrophils # (A) 10.5 k/uL (1.3-7.7); Neutrophils % (A) 86 %; Platelet Count 284 k/uL (150-450); RBC 3.57 m/uL (4.30-5.90); RDW 15.7 % (11.5-15.5); WBC 12.3 k/uL (3.8-10.6)
[2024-01-15 07:18] LABS: ALT 14 U/L (4-49); AST 33 U/L (17-59); African American GFR (CKD) 38 (>60 ml/min/1.73 sqM); Albumin 3.2 g/dL (3.5-5.0); Alkaline Phosphatase 47 U/L (38-126); Anion Gap 6 mmol/L; Blood Urea Nitrogen 35 mg/dL (9-20); Calcium 9.1 mg/dL (8.4-10.2); Carbon Dioxide 24 mmol/L (22-30); Chloride 105 mmol/L (98-107); Glucose 81 mg/dL (74-99); Non-African American GFR(CKD) 33 (>60 ml/min/1.73 sqM); Potassium 4.7 mmol/L (3.5-5.1); Sodium 135 mmol/L (137-145); Total Bilirubin 0.7 mg/dL (0.2-1.3); Total Protein 5.3 g/dL (6.3-8.2)
--- NOTE | 2024-01-15 08:04 | XR ---
EXAMINATION TYPE: XR chest 1V portable DATE OF EXAM: 01/15/2024 COMPARISON: 01/14/2024 INDICATION: CHF TECHNIQUE: Single frontal view of the chest is obtained. FINDINGS: The heart size is upper limits of normal. The pulmonary vasculature is normal. Diffuse increase lung opacity is present on the right, this has a similar appearance. Small right ple ural effusion may be present. IMPRESSION: 1. Focal correlation for atypical pulmonary edema. Findings similar to comparison. Continued follow-u p recommended
[2024-01-15] MEDS: PRAVASTATIN SODIUM 80 MG TAB PO SCH (08:35)
--- NOTE | 2024-01-15 10:15 | P.PN ---
Subjective Progress Note Date: 01/15/24 this is an 88-year-old male patient of Dr. Little who presented with increased shortness of breath that has been increasing over the past few days.patient has past medical history of congestive heart failure, diabetes mellitus, hyperlipidemia and hypertension. Chest x-ray completed showing clinical cor relation recommended for congestive heart failure. BNP elevated at 12,400. Troponin also elevated at 0.225, creatinine 1.7 to 1:30 potassium 5.9. Patient's INR 1.8 patient is maintained on home dose Coumadin for atrial fibrillation. White blood cell 13.3 and hemoglobin 11.8. Per ER patient was started on BiPAP and IV Lasix. Cardiology and pulmonary service is consulted. 2-D echo has been ordered. cardiology, pulmonary and nephrology service is consulted. At this time patient is resting comfortably in bed on BiPAP. Patient denies any chest pain. Patient denies nausea vomiting or diarrhea. Patient denies any urinary burning or frequency On 4Patient's alert and oriented 3. Patient currently in the intensive care unit. BiPAP has been removed patient on 3 L nasal cannula appears less tachypneic than yesterday. Patient remains on IV Lasix. Patient also started on IV heparin due to elevated troponin. Cardiology and pulmonary services are following. Nephrology services also consulted current vital signs temp 98.1, heart rate 60, respiratory rate 22, blood pressure 132/70 with a pulse ox of 96% on 3 L. Patient denies chest pain or shortness of breath. Patient denies nausea vomiting or diarrhea. Patient denies any urinary burning or frequency Objective - Vital Signs Vital signs: Vital Signs Temp 98.1 F 01/15/24 08:00 Pulse 60 01/15/24 08:00 Resp 22 01/15/24 08:00 BP 132/70 01/15/24 08:00 Pulse Ox 95 01/15/24 08:00 FiO2 40 01/15/24 08:00 Intake & Output 01/14/24 01/15/24 01/15/24 18:59 06:59 18:59 Intake Total 74.628 Output Total 1100 200 Balance -1025.372 -200 Weight 81.647 kg 86.6 kg Intake: Intake, IV Titration 74.628 Amount Heparin Sod,Pork in 0.45% 74.628 NaCl 25,000 unit In 0.45 % NaCl 1 250ml.bag @ 12 UNITS/KG/HR 9.798 mls/hr IV .Q24H [facility] Rx#: [id number] Output: Urine 1100 200 Other: Voiding Method External Catheter - Exam In general patient is alert and oriented x 3 in no distress HEENT head normocephalic and atraumatic Neck is supple no JVD no goiter no lymphadenopathy no carotid bruit Chest examination is clear to auscultation no crackles no wheezing Cardiac exam reveals regular heart sounds S1 and S2 no gallops no murmurs Abdomen is soft nontender no organomegaly with normal bowel sounds Extremity exam reveals no edema no cyanosis or clubbing Neurological examination reveals no gross focal deficits - Labs CBC & Chem 7: 01/15/24 05:57 01/15/24 05:57 Labs: Abnormal Lab Results - Last 24 Hours (Table) 01/14/24 01/14/24 01/14/24 Range/Units 10:57 11:34 11:34 WBC 13.3 H (3.8-10.6) k/uL RBC 4.24 L (4.30-5.90) m/uL Hgb 11.8 L (13.0-17.5) gm/dL Hct 38.7 L (39.0-53.0) % MCHC 30.6 L (31.0-37.0) g/dL RDW (11.5-15.5) % Neutrophils # 11.7 H (1.3-7.7) k/uL Lymphocytes # 0.6 L (1.0-4.8) k/uL PT 18.1 H (10.0-12.5) sec INR 1.8 H (<1.2) APTT (22.0-30.0) sec Sodium (137-145) mmol/L Potassium (3.5-5.1) mmol/L Carbon Dioxide (22-30) mmol/L BUN (9-20) mg/dL Creatinine (0.66-1.25) mg/dL Glucose (74-99) mg/dL POC Glucose (mg/dL) 217 H (70-110) mg/dL Troponin I (0.000-0.034) ng/mL Total Protein (6.3-8.2) g/dL Albumin (3.5-5.0) g/dL Urine Protein (Negative) 01/14/24 01/14/24 01/14/24 Range/Units 11:34 11:34 14:51 WBC (3.8-10.6) k/uL RBC (4.30-5.90) m/uL Hgb (13.0-17.5) gm/dL Hct (39.0-53.0) % MCHC (31.0-37.0) g/dL RDW (11.5-15.5) % Neutrophils # (1.3-7.7) k/uL Lymphocytes # (1.0-4.8) k/uL PT (10.0-12.5) sec INR (<1.2) APTT (22.0-30.0) sec Sodium 133 L (137-145) mmol/L Potassium 5.9 H (3.5-5.1) mmol/L Carbon Dioxide 20 L (22-30) mmol/L BUN 30 H (9-20) mg/dL Creatinine 1.72 H (0.66-1.25) mg/dL Glucose 219 H (74-99) mg/dL POC Glucose (mg/dL) (70-110) mg/dL Troponin I 0.225 H* 0.257 H* (0.000-0.034) ng/mL Total Protein 6.1 L (6.3-8.2) g/dL Albumin (3.5-5.0) g/dL Urine Protein (Negative) 01/14/24 01/14/24 01/14/24 Range/Units 18:47 22:54 23:35 WBC (3.8-10.6) k/uL RBC (4.30-5.90) m/uL Hgb (13.0-17.5) gm/dL Hct (39.0-53.0) % MCHC (31.0-37.0) g/dL RDW (11.5-15.5) % Neutrophils # (1.3-7.7) k/uL Lymphocytes # (1.0-4.8) k/uL PT (10.0-12.5) sec INR (<1.2) APTT 86.9 H (22.0-30.0) sec Sodium (137-145) mmol/L Potassium (3.5-5.1) mmol/L Carbon Dioxide (22-30) mmol/L BUN (9-20) mg/dL Creatinine (0.66-1.25) mg/dL Glucose (74-99) mg/dL POC Glucose (mg/dL) (70-110) mg/dL Troponin I 0.319 H* (0.000-0.034) ng/mL Total Protein (6.3-8.2) g/dL Albumin (3.5-5.0) g/dL Urine Protein Trace H (Negative) 01/15/24 01/15/24 01/15/24 Range/Units 05:57 05:57 05:57 WBC 12.3 H (3.8-10.6) k/uL RBC 3.57 L (4.30-5.90) m/uL Hgb 10.4 L (13.0-17.5) gm/dL Hct 32.6 L (39.0-53.0) % MCHC (31.0-37.0) g/dL RDW 15.7 H (11.5-15.5) % Neutrophils # 10.5 H (1.3-7.7) k/uL Lymphocytes # 0.9 L (1.0-4.8) k/uL PT (10.0-12.5) sec INR (<1.2) APTT 79.8 H (22.0-30.0) sec Sodium 135 L (137-145) mmol/L Potassium (3.5-5.1) mmol/L Carbon Dioxide (22-30) mmol/L BUN 35 H (9-20) mg/dL Creatinine 1.83 H (0.66-1.25) mg/dL Glucose (74-99) mg/dL POC Glucose (mg/dL) (70-110) mg/dL Troponin I (0.000-0.034) ng/mL Total Protein 5.3 L (6.3-8.2) g/dL Albumin 3.2 L (3.5-5.0) g/dL Urine Protein (Negative) Assessment and Plan Assessment: 1. Acute Exacerbation of diastolic CHF 2. Hypoxia secondary to acute CHF exacerbation 3. Acute kidney injury with hyperkalemia 4. Elevated troponin 5. History of atrial fibrillation 6. History of cardiomyopathy 7. History of diabetes mellitus 8. History of essential hypertension cardiology, pulmonary and nephrology service is consulted 2-D echo ordered Repeat labs ordered Maintained on heparin drip Patient started on IV Lasix
[2024-01-15 11:24] LABS: Glucose,Whole Blood 87 mg/dL (70-110)
--- NOTE | 2024-01-15 13:03 | P.NPCON ---
History of Present Illness - Reason for Consult hyperkalemia - History of Present Illness patient is an 88-year-old male with history of type 2 diabetes, hypertension, CHF who was admitted to the hospital with complaints of shortness of breath. Patient was initially maintained on BiPAP. Respiratory status has improved with diuresis. chest x-ray shows pulmonary vascular congestion. potassium was elevated at 5.9 on admission and now improved to 4.7 Serum creatinine was 1.7 on admission and it is 1.8 today. Previous creatinine 1.4 on 08/07/2023. patient has an external catheter. Review of Systems as per HPI Past Medical History Past Medical History: Atrial Fibrillation, Heart Failure, Diabetes Mellitus, Hyperlipidemia, Hypertension History of Any Multi-Drug Resistant Organisms: None Reported Past Surgical History: Joint Replacement, Orthopedic Surgery, Prostate Surgery Additional Past Surgical History / Comment(s): right hip Past Anesthesia/Blood Transfusion Reactions: No Reported Reaction Past Psychological History: No Psychological Hx Reported Smoking Status: Former smoker Past Alcohol Use History: Occasional Past Drug Use History: None Reported Medications and Allergies Home Medications Medication Instructions Recorded Confirmed Type Enalapril [Vasotec] 20 mg PO BID 05/11/18 01/14/24 History Furosemide [Lasix] 40 mg PO DAILY 05/11/18 01/14/24 History [place]-3 Fatty Acids/Fish Oil [Fish 1 cap PO DAILY 05/11/18 01/14/24 History Oil 1,000 mg Softgel] Omeprazole 20 mg PO DAILY PRN 05/11/18 01/14/24 History Potassium Chloride [Klor-Con 10 ER] 10 meq PO DAILY 05/11/18 01/14/24 History Pravastatin Sodium [Pravachol] 80 mg PO DAILY 05/11/18 01/14/24 History Warfarin Sodium [Coumadin] 2.5 mg PO DAILY 05/11/18 01/14/24 History carvediloL [Coreg] 6.25 mg PO BID 05/11/18 01/14/24 History dilTIAZem HCL [Cardizem] 240 mg PO DAILY 05/11/18 01/14/24 History glipiZIDE XL [Glucotrol XL] 10 mg PO DAILY 05/11/18 01/14/24 History metFORMIN HCL [Glucophage] 1,000 mg PO DAILY 05/11/18 01/14/24 History Glucosamine/Chondr Harmon A Sod [Osteo 1 tab PO DAILY 01/14/24 01/14/24 History Bi-Flex Caplet] Allergies Allergy/AdvReac Type Severity Reaction Status Date / Time No Known Allergies Allergy Verified 01/14/24 13:59 Physical Exam Vitals: Vital Signs Temp Pulse Pulse Resp BP BP Pulse Ox 01/15/24 11:25 97.8 F 68 20 167/68 98 01/15/24 09:10 96 01/15/24 08:00 98.1 F 60 22 132/70 95 01/15/24 03:54 01/15/24 03:53 98.2 F 64 19 112/66 100 01/15/24 02:20 01/15/24 01:54 71 20 145/82 100 01/15/24 00:54 01/15/24 00:00 96.7 F L 78 29 H 163/85 98 01/14/24 23:51 01/14/24 22:11 98 22 173/84 98 01/14/24 21:44 73 24 158/72 99 01/14/24 19:57 01/14/24 19:22 57 L 24 159/83 98 01/14/24 18:00 56 L 16 162/90 99 01/14/24 16:00 49 L 27 H 148/79 100 01/14/24 15:13 01/14/24 14:00 51 L 18 132/81 96 01/14/24 13:00 69 16 145/87 100 FiO2 01/15/24 11:25 01/15/24 09:10 40 01/15/24 08:00 40 01/15/24 03:54 40 01/15/24 03:53 40 01/15/24 02:20 50 01/15/24 01:54 60 01/15/24 00:54 70 01/15/24 00:00 90 01/14/24 23:51 100 01/14/24 22:11 50 01/14/24 21:44 01/14/24 19:57 50 01/14/24 19:22 01/14/24 18:00 01/14/24 16:00 01/14/24 15:13 50 01/14/24 14:00 01/14/24 13:00 Intake and Output 07/08/24 07/09/24 07/09/24 22:59 06:59 14:59 Intake Total 74.628 Output Total 1100 1400 Balance -1025.372 -1400 Intake: Intake, IV Titration 74.628 Amount Heparin Sod,Pork in 0.45% 74.628 NaCl 25,000 unit In 0.45 % NaCl 1 250ml.bag @ 12 UNITS/KG/HR 9.798 mls/hr IV .Q24H [facility] Rx#: [id number] Output: Urine 1100 1400 Other: Voiding Method External Catheter External Catheter Weight 81.647 kg 86.6 kg patient is awake, comfortable, no acute distress. Examination of the heart S1 and S2 Examination of the lungs bilateral breath sounds are heard Abdomen is soft nontender Examination of lower extremities shows trace edema bilaterally INHALATION THERAPIST exam grossly intact Results - Lab Results Most recent lab results Calcium 9.1 mg/dL (8.4-10.2) 01/15/24 05:57 Magnesium 1.8 mg/dL (1.6-2.3) 01/14/24 11:34 01/15/24 05:57 01/15/24 05:57 Assessment and Plan Assessment: 1. Hyperkalemia associated with acute kidney injury and IMANI inhibitor as prior to admission.blood glucose was elevated at 219 on initial admission which also contributed to hyperkalemia 2. Acute kidney injury, nonoliguric, cardiorenal syndrome. UA is benign 3. CHF, with preserved ejection fraction. EF was 55-60% in 2018. 4. Volume overload 5. Chronic kidney disease NKF stage IIIa with previous creatinine 1.4 in July 2023. Etiology is nephrosclerosis Plan: continue with IV Lasix Repeat labs in a.m. expect improvement in blood pressure with improved volume status. Check ultrasound of the kidneys next Thank you for the consultation. We will continue to follow the patient with you during his hospitalization.
--- NOTE | 2024-01-15 13:12 | CA ---
Transthoracic Echo Report Name: Javon Chavira Age: 88 Gender: M : 1935 Exam Date: 01/15/2024 08:25 Exam Location: [place] [facility] Ht (in): 66 Wt (lb): 180 Ordering Physician: Sinan Moulton DO Attending/Referring Phys: [id number], [employer] Katy Pinzon, NAYA Procedure CPT: Indications: Heart failure Cardiac Hx: Technical Quality: Fair Contrast 1: Total Dose (mL): Contrast 2: Total Dose (mL): MEASUREMENTS (Male / Female) Normal Values 2D ECHO LV Diastolic Diameter PLAX 5.0 cm 4.2 - 5.9 / 3.9 - 5.3 cm LV Systolic Diameter PLAX 3.4 cm IVS Diastolic Thickness 1.5 cm 0.6 - 1.0 / 0.6 - 0.9 cm LVPW Diastolic Thickness 1.3 cm 0.6 - 1.0 / 0.6 - 0.9 cm LV Relative Wall Thickness 0.6 RV Internal Dim ED PLAX 2.6 cm LVOT Diameter 1.9 cm LA Systolic Diameter LX 5.4 cm 3.0 - 4.0 / 2.7 - 3.8 cm LV Diastolic Volume MOD BP 44.3 cm??? 67 - 155 / 56 - 104 cm??? LV Systolic Volume MOD BP 21.0 cm??? - 58 / 19 - 49 cm??? LV Ejection Fraction MOD BP 52.5 % >= 55 % LV Cardiac Index MOD BP 636.5 cm???/min???m??? LV Diastolic Volume MOD 4C 43.8 cm??? LV Systolic Volume MOD 4C 23.2 cm??? LV Ejection Fraction MOD 4C 47.1 % LV Cardiac Index MOD 4C 564.6 cm???/min???m??? LV Diastolic Length 4C 6.3 cm LV Systolic Length 4C 5.8 cm LV Diastolic Volume MOD 2C 43.9 cm??? LV Systolic Volume MOD 2C 18.4 cm??? LV Ejection Fraction MOD 2C 58.1 % LV Cardiac Index MOD 2C 698.9 cm???/min???m??? LV Diastolic Length 2C 6.4 cm LV Systolic Length 2C 6.1 cm LA Volume 161.7 cm??? 18 - 58 / 22 - 52 cm??? LA Volume Index 82.0 cm???/m??? 16 - 28 cm???/m??? M-MODE Aortic Root Diameter MM 3.5 cm LA Systolic Diameter MM 5.3 cm LA Ao Ratio MM 1.5 AV Cusp Separation MM 0.6 cm DOPPLER AV Peak Velocity 366.6 cm/s AV Peak Gradient 53.7 mmHg AV Mean Velocity 273.3 cm/s AV Mean Gradient 32.6 mmHg AV Velocity Time Integral 95.4 cm TR Peak Velocity 372.0 cm/s TR Peak Gradient 55.4 mmHg Right Ventricular Systolic Press 67.5 mmHg FINDINGS Left Ventricle Left ventricular ejection fraction is estimated at 55-60 %. Moderately increased septal wall thickness. No obvious regional wall motion abnormalities. Left ventricular cavity size normal. Right Ventricle Mild right ventricular dilatation. Severe pulmonary hypertension. Right Atrium Moderate right atrial dilatation. Left Atrium Severely increased left atrial diameter. Severely increased left atrial volume. Moderately increased left atrial area. Mitral Valve Structurally normal mitral valve. Mitral valve thickened. Mitral annular calcification. [id number]-zo-sajfldvj mitral regurgitation. Anteriorly directed mitral regurgitation jet. Aortic Valve Trileaflet aortic valve. Kguchuyq-hd-zoervz aortic stenosis with a peak gradient of 53mmHg and a mean gradient of 32 mmHg. No aortic regurgitation. Tricuspid Valve Structurally normal tricuspid valve. Moderate tricuspid regurgitation. No tricuspid stenosis. Pulmonic Valve Structurally normal pulmonic valve. Trace pulmonic regurgitation. Pericardium Small pericardial effusion. Aorta Normal size aortic root and proximal ascending aorta. CONCLUSIONS Left ventricular ejection fraction 55-60% Moderate increased left ventricle wall thickness Severely dilated left atrium Mild to moderate mitral regurgitation Moderate to severe aortic stenosis Small pericardial effusion RVSP 67 Previewed by: Dr. Kobe Campos DO (Electronically Signed) Final Date: 15 January 2024 13:11
--- NOTE | 2024-01-15 13:26 | P.PN ---
Subjective Progress Note Date: 01/15/24 Principal diagnosis: Acute hypoxic respiratory failure secondary to acute exacerbation of diastolic congestive heart failure This is a pleasant 88-year-old male patient with a known history of congestive heart failure, diabetes mellitus, hypertension, hyperlipidemia, atrial fib rillation anticoagulated with warfarin. Over the past several days he had not been feeling well. He was developing increasing shortness of breath, weakness and some confusion. He was brought into the emergency room earlier this morning for the same. EKG revealed atrial fibrillation with a controlled ventricular response. Chest x-ray revealed evidence of pulmonary vascular congestion and congestive heart failure. White count 13.3. Hemoglobin 11.8. Platelets 385. INR 1.8. Sodium 133. Potassium 5.9. Bicarb 20. BUN 30. Creatinine 1.72. Glucose 219. Troponin 0.225, 0.257. proBNP 12,400. He is seen today in consultation in the emergency department. He is alert. He is requiring BiPAP support currently 12/6 and 50% FiO2. He is having ongoing shortness of breath. Denies any chest pain. He has been initiated on DuoNeb inhalations, IV diuretics, heparin drip. Patient was evaluated today and 01/15/2024, evaluated for his congestive heart failure. I saw this patient yesterday in the ER. Patient is feeling much better today compared to yesterday. Chest x-ray is showing slight improvement in his pulmonary edema. Patient was on BiPAP yesterday, today he is on nasal cannula at2 L, and his O2 saturation is 98%. Patient remains on heparin, PTT is therapeutic.WBC count is 12.3 hemoglobin 10.4. Basic metabolic profile is normal creatinine is 1.83 slightly higher compared to yesterday 1.72. Clinically however the patient feels much better, breathing a lot easier, and he seems much more comfortable today compared to yesterday. Echocardiogram showed good LV function. Objective - Vital Signs Vital signs: Vital Signs Temp 97.8 F 01/15/24 11:25 Pulse 68 01/15/24 11:25 Resp 20 01/15/24 11:25 BP 167/68 01/15/24 11:25 Pulse Ox 98 01/15/24 11:25 FiO2 40 01/15/24 09:10 Intake & Output 01/14/24 01/15/24 01/15/24 18:59 06:59 18:59 Intake Total 74.628 Output Total 1100 1400 Balance -1025.372 -1400 Weight 81.647 kg 86.6 kg Intake: Intake, IV Titration 74.628 Amount Heparin Sod,Pork in 0.45% 74.628 NaCl 25,000 unit In 0.45 % NaCl 1 250ml.bag @ 12 UNITS/KG/HR 9.798 mls/hr IV .Q24H [facility] Rx#: [id number] Output: Urine 1100 1400 Other: Voiding Method External Catheter External Catheter - Exam GENERAL EXAM: Alert, pleasant 88-year-old male patient 2 L nasal cannula, not in distress HEAD: Normocephalic. EYES: Normal reaction of pupils, equal size. NOSE: Clear with pink turbinates. THROAT: No erythema or exudates. NECK: No masses, no JVD. CHEST: No chest wall deformity. LUNGS: Crackles at the bases persist. CVS: S1 and S2 normal with no audible murmur, irregular rhythm. ABDOMEN: No hepatosplenomegaly, normal bowel sounds, no guarding or rigidity. SKIN: No rashes CENTRAL NERVOUS SYSTEM: No focal deficits, tone is normal in all 4 extremities. EXTREMITIES: There is trace peripheral edema. No clubbing, no cyanosis. Peripheral pulses are intact. - Labs CBC & Chem 7: 01/15/24 05:57 01/15/24 05:57 Labs: Abnormal Lab Results - Last 24 Hours (Table) 01/14/24 01/14/24 01/14/24 Range/Units 14:51 18:47 22:54 WBC (3.8-10.6) k/uL RBC (4.30-5.90) m/uL Hgb (13.0-17.5) gm/dL Hct (39.0-53.0) % RDW (11.5-15.5) % Neutrophils # (1.3-7.7) k/uL Lymphocytes # (1.0-4.8) k/uL APTT 86.9 H (22.0-30.0) sec Sodium (137-145) mmol/L BUN (9-20) mg/dL Creatinine (0.66-1.25) mg/dL Hemoglobin A1c (<=6.0) % Troponin I 0.257 H* 0.319 H* (0.000-0.034) ng/mL Total Protein (6.3-8.2) g/dL Albumin (3.5-5.0) g/dL Urine Protein (Negative) 01/14/24 01/15/24 01/15/24 Range/Units 23:35 05:57 05:57 WBC 12.3 H (3.8-10.6) k/uL RBC 3.57 L (4.30-5.90) m/uL Hgb 10.4 L (13.0-17.5) gm/dL Hct 32.6 L (39.0-53.0) % RDW 15.7 H (11.5-15.5) % Neutrophils # 10.5 H (1.3-7.7) k/uL Lymphocytes # 0.9 L (1.0-4.8) k/uL APTT (22.0-30.0) sec Sodium (137-145) mmol/L BUN (9-20) mg/dL Creatinine (0.66-1.25) mg/dL Hemoglobin A1c 6.7 H (<=6.0) % Troponin I (0.000-0.034) ng/mL Total Protein (6.3-8.2) g/dL Albumin (3.5-5.0) g/dL Urine Protein Trace H (Negative) 01/15/24 01/15/24 Range/Units 05:57 05:57 WBC (3.8-10.6) k/uL RBC (4.30-5.90) m/uL Hgb (13.0-17.5) gm/dL Hct (39.0-53.0) % RDW (11.5-15.5) % Neutrophils # (1.3-7.7) k/uL Lymphocytes # (1.0-4.8) k/uL APTT 79.8 H (22.0-30.0) sec Sodium 135 L (137-145) mmol/L BUN 35 H (9-20) mg/dL Creatinine 1.83 H (0.66-1.25) mg/dL Hemoglobin A1c (<=6.0) % Troponin I (0.000-0.034) ng/mL Total Protein 5.3 L (6.3-8.2) g/dL Albumin 3.2 L (3.5-5.0) g/dL Urine Protein (Negative) Assessment and Plan Assessment: Impression: Acute hypoxemic respiratory failure secondary to an acute exacerbation of diastolic congestive heart failure Atrial fibrillation with a controlled ventricular response anticoagulated with warfarin, presently on heparin Troponin leak suspect secondary to above versus non-ST segment elevation myocardial infarction Diabetes mellitus Hypertension Hyperlipidemia Acute on chronic kidney disease, possible cardiorenal syndrome. History of stage IIIA chronic kidney disease Recommendation: Continue O2 and titrate accordingly Continue diuretics and monitor electrolytes monitor renal profile but patient is on Lasix 40 mg IV push twice daily Daily x-rays of the chest monitor congestive heart failure, today's chest x-ray is showing improvement Continue heparin and eventually transition back to Coumadin Continue GI DVT prophylaxis Resume home cardiac meds including Coreg Will continue to follow Time with Patient: Less than 30
[2024-01-15 13:34] VITALS: BMI 30.8
--- NOTE | 2024-01-15 14:27 | CONS ---
CONSULTATION HISTORY OF PRESENT ILLNESS: Denisa is an 88-year-old gentleman with history of atrial fibrillation, dyslipidemia, bwv-[id number] diabetes who presented to hospital with symptoms of not feeling well, shortness of breath, weakness, and some confusion. His EKG on initial admission revealed atrial fibrillation with controlled ventricular rate. He had evidence of acute exacerbation of chronic congestive heart failure with pulmonary congestion on a chest x-ray and elevated BNP 12,400 and mild troponin elevation probably from the congestive heart failure and renal insufficiency. At the time of my evaluation, he is on a BiPAP, was feeling better with the IV Lasix that he had already received. His INR is 1.8. He is on heparin which I am going to continue and resume Coumadin. I am not planning on doing any invasive procedures on this patient. I will obtain a 2D echo to evaluate his LV function. His clinical presentation is consistent with acute exacerbation of chronic congestive heart failure. PAST MEDICAL HISTORY: Significant for atrial fibrillation, congestive heart failure, hypertension, diabetes, dyslipidemia. PAST SURGICAL HISTORY: Significant for prostate surgery and joint replacement. MEDICATIONS AT HOME: 1. Enalapril 20 b.i.d. 2. Lasix 40 daily. 3. Omeprazole. 4. K-Dur. 5. Pravastatin. 6. Coumadin. 7. Cardizem. 8. Glucotrol. 9. Metformin. ALLERGIES: No known drug allergies. FAMILY HISTORY: Negative for premature coronary artery disease. SOCIAL HISTORY: Negative for current smoking, EtOH abuse, or drug abuse. REVIEW OF SYSTEMS: A review of systems has been performed, pertinent are as documented and these include altered mental status, generalized weakness, shortness of breath, cough, and congestion. PHYSICAL EXAMINATION: VITAL SIGNS: Heart rate is 68 beats per minute, blood pressure 130/73, respiratory rate is 18 CHEST: Reveals diminished air entry at the bases with occasional rhonchi. HEART: Reveals first and second heart sounds. Systolic murmur at the apex. ABDOMEN: Soft. EXTREMITIES: Reveal bilateral 1+ pitting edema. LABORATORY DATA: Labs show that the white cell count is 12.3, hemoglobin is 10.4, potassium is 4.7, BUN is 35, creatinine is 1.8. AST and ALT are within normal limits. ASSESSMENT: 1. Acute exacerbation of chronic congestive heart failure, probably systolic. 2. Permanent atrial fibrillation with controlled ventricular rate. 3. Elevated troponin related 2 myocardial infarction. PLAN: I will continue him on his current medications. Continue with IV Lasix. Resume Coumadin, not planning on doing any invasive procedures. MARYA / SHAGUFTAN: [id number] /
--- NOTE | 2024-01-15 15:17 | US ---
EXAMINATION TYPE: US kidneys/renal and bladder DATE OF EXAM: 01/15/2024 Exam done portable in ICU COMPARISON: NONE CLINICAL INDICATION: Male, 88 years old with history of ira; EXAM MEASUREMENTS: Right Kidney: 11.3 x 5.6 x 5.1 cm Left Kidney: 11.1 x 5.3 x 5.5 cm Right Kidney: no hydronephrosis or masses seen Left Kidney: 2.1cm cyst inferior pole Bladder: wnl Bilateral Jets seen: yes Gallbladder: cholelithiasis IMPRESSION: 1. Left renal cyst. 2. Cholelithiasis.
[2024-01-15 17:11] LABS: Glucose,Whole Blood 148 mg/dL (70-110)
[2024-01-15] MEDS: WARFARIN 5 MG TAB PO ONE (17:17)
[2024-01-15 20:12] LABS: Glucose,Whole Blood 101 mg/dL (70-110)
[2024-01-16 06:42] LABS: Basophils # (A) 0.1 k/uL (0-0.2); Basophils % (A) 1 %; Eosinophils # (A) 0.1 k/uL (0-0.7); Eosinophils % (A) 1 %; HCT 33.5 % (39.0-53.0); HGB 10.4 gm/dL (13.0-17.5); Hypochromasia Slight; Lymphocytes # (A) 1.1 k/uL (1.0-4.8); Lymphocytes % (A) 12 %; MCH 28.4 pg (25.0-35.0); MCV 91.5 fL (80.0-100.0); Mean Platelet Volume 8.5; Monocytes # (A) 0.6 k/uL (0-1.0); Monocytes % (A) 7 %; Neutrophils # (A) 6.7 k/uL (1.3-7.7); Neutrophils % (A) 77 %; Platelet Count 283 k/uL (150-450); RBC 3.66 m/uL (4.30-5.90); RDW 15.5 % (11.5-15.5); WBC 8.7 k/uL (3.8-10.6)
[2024-01-16 06:42] LABS: Glucose,Whole Blood 141 mg/dL (70-110)
[2024-01-16 06:48] LABS: INR 2.2 (<1.2); Partial Thromboplastin Time 65.6 sec (22.0-30.0); Prothrombin Time 22.1 sec (10.0-12.5)
[2024-01-16 07:17] LABS: ALT 15 U/L (4-49); AST 32 U/L (17-59); African American GFR (CKD) 39 (>60 ml/min/1.73 sqM); Albumin 3.2 g/dL (3.5-5.0); Alkaline Phosphatase 45 U/L (38-126); Anion Gap 5 mmol/L; Blood Urea Nitrogen 38 mg/dL (9-20); Calcium 9.1 mg/dL (8.4-10.2); Carbon Dioxide 28 mmol/L (22-30); Chloride 105 mmol/L (98-107); Glucose 127 mg/dL (74-99); Non-African American GFR(CKD) 34 (>60 ml/min/1.73 sqM); Sodium 138 mmol/L (137-145); Total Protein 5.4 g/dL (6.3-8.2)
--- NOTE | 2024-01-16 08:04 | XR ---
EXAMINATION TYPE: XR chest 1V portable DATE OF EXAM: 01/16/2024 COMPARISON: 01/15/2024 INDICATION: CHF exacerbation TECHNIQUE: Single frontal view of the chest is obtained. FINDINGS: The heart size is prominent. The pulmonary vasculature is mildly prominent. Significant improvement of the right lung opacity. Mild residual remains. IMPRESSION: 1. Resolving pulmonary edema and congestive heart failure. Follow-up is recommended
--- NOTE | 2024-01-16 09:01 | P.PN ---
Subjective Progress Note Date: 01/16/24 this is an 88-year-old male patient of Dr. Little who presented with increased shortness of breath that has been increasing over the past few days.patient has past medical history of congestive heart failure, diabetes mellitus, hyperlipidemia and hypertension. Chest x-ray completed showing clinical cor relation recommended for congestive heart failure. BNP elevated at 12,400. Troponin also elevated at 0.225, creatinine 1.7 to 1:30 potassium 5.9. Patient's INR 1.8 patient is maintained on home dose Coumadin for atrial fibrillation. White blood cell 13.3 and hemoglobin 11.8. Per ER patient was started on BiPAP and IV Lasix. Cardiology and pulmonary service is consulted. 2-D echo has been ordered. cardiology, pulmonary and nephrology service is consulted. At this time patient is resting comfortably in bed on BiPAP. Patient denies any chest pain. Patient denies nausea vomiting or diarrhea. Patient denies any urinary burning or frequency On 01/15/2024atient's alert and oriented 3. Patient currently in the intensive care unit. BiPAP has been removed patient on 3 L nasal cannula appears less tachypneic than yesterday. Patient remains on IV Lasix. Patient also started on IV heparin due to elevated troponin. Cardiology and pulmonary services are following. Nephrology services also consulted current vital signs temp 98.1, heart rate 60, respiratory rate 22, blood pressure 132/70 with a pulse ox of 96% on 3 L. Patient denies chest pain or shortness of breath. Patient denies nausea vomiting or diarrhea. Patient denies any urinary burning or frequency On 01/16/2024 patient is alert and oriented 3. Patient reports improvement with shortness of breath.Patient remains on IV Lasix. INR today therapeutic at 2.2 heparin DC'd patient resumed on home dose of Coumadin per cardiology. Current vital signs temp 97.8, heart rate 82, respiratory rate 18, blood pressure 118/59 with pulse ox 98% on 2 L Objective - Vital Signs Vital signs: Vital Signs Temp 97.8 F 01/16/24 08:00 Pulse 82 01/16/24 08:00 Resp 18 01/16/24 08:00 BP 119/59 01/16/24 08:00 Pulse Ox 98 01/16/24 08:00 FiO2 40 07/10/24 08:52 Intake & Output 01/15/24 01/16/24 01/16/24 18:59 06:59 18:59 Intake Total 175.372 Output Total 2199 1999 Balance -0 -1824.628 Weight 86.6 kg 81.8 kg Intake: Intake, IV Titration 175.372 Amount Heparin Sod,Pork in 0.45% 175.372 NaCl 25,000 unit In 0.45 % NaCl 1 250ml.bag @ 12 UNITS/KG/HR 9.798 mls/hr IV .Q24H [facility] Rx#: [id number] Output: Urine 2199 1999 Other: Voiding Method External Catheter External Catheter External Catheter - Exam In general patient is alert and oriented x 3 in no distress HEENT head normocephalic and atraumatic Neck is supple no JVD no goiter no lymphadenopathy no carotid bruit Chest examination is clear to auscultation no crackles no wheezing Cardiac exam reveals regular heart sounds S1 and S2 no gallops no murmurs Abdomen is soft nontender no organomegaly with normal bowel sounds Extremity exam reveals no edema no cyanosis or clubbing Neurological examination reveals no gross focal deficits - Labs CBC & Chem 7: 01/16/24 05:52 01/16/24 05:52 Labs: Abnormal Lab Results - Last 24 Hours (Table) 01/15/24 01/15/24 01/16/24 Range/Units 05:57 17:09 05:52 RBC (4.30-5.90) m/uL Hgb (13.0-17.5) gm/dL Hct (39.0-53.0) % PT 22.1 H (10.0-12.5) sec INR 2.2 H (<1.2) APTT 65.6 H (22.0-30.0) sec BUN (9-20) mg/dL Creatinine (0.66-1.25) mg/dL Glucose (74-99) mg/dL POC Glucose (mg/dL) 148 H (70-110) mg/dL Hemoglobin A1c 6.7 H (<=6.0) % Total Protein (6.3-8.2) g/dL Albumin (3.5-5.0) g/dL 01/16/24 01/16/24 01/16/24 Range/Units 05:52 05:52 06:40 RBC 3.66 L (4.30-5.90) m/uL Hgb 10.4 L (13.0-17.5) gm/dL Hct 33.5 L (39.0-53.0) % PT (10.0-12.5) sec INR (<1.2) APTT (22.0-30.0) sec BUN 38 H (9-20) mg/dL Creatinine 1.79 H (0.66-1.25) mg/dL Glucose 127 H (74-99) mg/dL POC Glucose (mg/dL) 141 H (70-110) mg/dL Hemoglobin A1c (<=6.0) % Total Protein 5.4 L (6.3-8.2) g/dL Albumin 3.2 L (3.5-5.0) g/dL Assessment and Plan Assessment: 1. Acute Exacerbation of diastolic CHF 2. Hypoxia secondary to acute CHF exacerbation 3. Acute kidney injury with hyperkalemia 4. Elevated troponin 5. History of atrial fibrillation 6. History of cardiomyopathy 7. History of diabetes mellitus 8. History of essential hypertension cardiology, pulmonary and nephrology service is consulted 2-D echo ordered Repeat labs ordered DVT prophylaxis Coumadin. GI prophylaxis Protonix
--- NOTE | 2024-01-16 10:27 | CDI ---
Documentation Clarification Form Date: 01/16/2024 From: Brenda Moore Phone: [phone] Admit Date: 01/14/2024 01:51:00 PM Patient Name: Javon Chavira Visit Number: [id number] Discharge Date: ATTENTION: The Clinical Documentation Specialists (CDI) and [facility] Coding Staff appreciate your assistance in clarifying documentation. Please respond to the clarification below the line at the bottom and electronically sign. The CDI & [facility] Coding staff will review the response and follow-up if needed. Please note: Queries are made part of the Legal Health Record. If you have any questions, please contact the author of this message via ITS. Dr. Yovany Aranda: Your patient has troponin level(s) of: 0.225, 0.257 and 0.319 on 01/13. Please clarify if there is an additional diagnosis and/or clinical significance related to this value. Patient history/risk factors: 88-year-old male with a history of AFib, CHF, DM2 and hypertension who presents with increased SOB, found to have CHF exacerbation, KELLI, and acute hypoxic respiratory failure Clinical indicators: 01/13 Triage VS: 128/72, 97.2, 74, 22, 85% room air -up to 95% on 4liters nasal cannula 01/14 Cardiology consult, HPI: "mild troponin elevation probably from the congestive heart failure and renal insufficiency." Assessment: "3. Elevated troponin related 2 myocardial infarction." 01/13 BNP: 12,400 01/13 EKG: Atrial fibrillation, right axis deviation (QRS [place] >100), Low QRS voltage in extremities, Moderate ST depression Treatment: Cardiology consult, Monitor troponin Lasix 60mg IV once 01/13 then 40mg IV [id number] start 01/13 Heparin 4000units once 01/13 then titrated drip 01/13-01/14 Is there an additional diagnosis and/or clinical significance related to the above lab result/information: [ ] Type 2 OH due to (specify cause ____) [ ] Non-ischemic with acute myocardial injury [ x] No additional diagnosis/Not clinically significant [ ] Other, please specify [ ] Unable to determine Reference: [employer] [employer] Fourth [place] Definition of Myocardial Infraction Elevated Cardiac Troponin >99th percentile with Troponin rise and/or fall With Acute ischemia o Acute Myocardial Infarction ? Atherosclerosis thrombosis Type I OH ? Oxygen supply and demand imbalance Type II OH (Please indicate etiology) Without acute ischemia o Acute Myocardial Injury MTDD
[2024-01-16 11:32] LABS: Glucose,Whole Blood 174 mg/dL (70-110)
--- NOTE | 2024-01-16 12:09 | PN ---
PROGRESS NOTE SUBJECTIVE: Javon is an 88-year-old gentleman, who was admitted to hospital with shortness of breath, confusion, and not feeling well and on initial admission was in atrial fibrillation with rapid ventricular rate. His admission was related to a combination of cardiac issues including heart failure with exacerbation of atrial fibrillation. The exact etiology for his confusion is unclear. The patient was quite hypoxic on his initial presentation and that could be the reason he was somewhat confused. The patient also had symptoms suggestive of respiratory tract infection. Yesterday was on a nonrebreather. This morning, he is looking much better. He is on nasal O2 and chest x-ray shows significant improvement in his right lung opacity and improving pulmonary congestion. OBJECTIVE: VITAL SIGNS: Heart rate is 80 beats per minute, blood pressure is 120/62, respiratory rate is 18, O2 saturation is 98% on 2 L. NECK: There is no jugular venous distention. CHEST: Reveals bilateral rhonchi and diminished air entry. HEART: Reveals first and second heart sounds. No gallop. Has a systolic murmur at the apex and ejection systolic murmur at the right parasternal border. ABDOMEN: Soft. EXTREMITIES: Reveals 1+ edema. LABORATORY DATA: Labs show a hemoglobin of 10.8, platelet count is 283. INR is 2.2, potassium is 4, BUN is 38, and creatinine is 1.79. The patient is currently on Coreg 6.25 b.i.d., Lasix 40 mg IV q.12, Coumadin whose doses are being adjusted with INR. I am going to hold off on the Cardizem at this time and switch him to p.o. Lasix tomorrow. ASSESSMENT AND PLAN: 1. Acute exacerbation of chronic congestive heart failure. 2. Permanent atrial fibrillation. 3. Respiratory failure secondary to pneumonia. An echocardiogram on this admission revealed normal LV function, severe pulmonary hypertension, moderate to severe aortic stenosis, and mild to moderate mitral regurgitation. The patient's INR is therapeutic today. We will stop the IV heparin. We can switch Lasix to p.o. tomorrow. [facility] / [facility]: [id number] /
--- NOTE | 2024-01-16 12:57 | P.PN ---
Subjective Patient is seen for follow-up for acute kidney injury, mostly cardiorenal. Currently being diuresed. Serum creatinine at 1.7 today. Good urine output. Shortness of breath has improved. Urine output at 4.2 L for 24 hours. Objective - Vital Signs Vital signs: Vital Signs Temp 98.0 F 01/16/24 12:00 Pulse 80 01/16/24 12:00 Resp 18 01/16/24 12:00 BP 132/91 01/16/24 12:00 Pulse Ox 95 01/16/24 12:00 FiO2 40 01/16/24 08:52 Intake & Output 01/15/24 01/16/24 01/16/24 18:59 06:59 18:59 Intake Total 175.372 Output Total 2200 2000 1000 Balance -2200 -1824.628 -1000 Weight 86.6 kg 81.8 kg Intake: Intake, IV Titration 175.372 Amount Heparin Sod,Pork in 0.45% 175.372 NaCl 25,000 unit In 0.45 % NaCl 1 250ml.bag @ 12 UNITS/KG/HR 9.798 mls/hr IV .Q24H [facility] Rx#: [id number] Output: Urine 2200 1999 1000 Other: Voiding Method External Catheter External Catheter External Catheter - Exam patient is awake, comfortable, no acute distress. Examination of the heart S1 and S2 Examination of the lungs bilateral breath sounds are heard Abdomen is soft nontender Examination of lower extremities shows trace edema bilaterally GAME TRAPPER exam grossly intact - Labs CBC & Chem 7: 01/16/24 05:52 01/16/24 05:52 Labs: Abnormal Lab Results - Last 24 Hours (Table) 01/15/24 01/16/24 01/16/24 Range/Units 17:09 05:52 05:52 RBC 3.66 L (4.30-5.90) m/uL Hgb 10.4 L (13.0-17.5) gm/dL Hct 33.5 L (39.0-53.0) % PT 22.1 H (10.0-12.5) sec INR 2.2 H (<1.2) APTT 65.6 H (22.0-30.0) sec BUN (9-20) mg/dL Creatinine (0.66-1.25) mg/dL Glucose (74-99) mg/dL POC Glucose (mg/dL) 148 H (70-110) mg/dL Total Protein (6.3-8.2) g/dL Albumin (3.5-5.0) g/dL 01/16/24 01/16/24 01/16/24 Range/Units 05:52 06:40 11:30 RBC (4.30-5.90) m/uL Hgb (13.0-17.5) gm/dL Hct (39.0-53.0) % PT (10.0-12.5) sec INR (<1.2) APTT (22.0-30.0) sec BUN 38 H (9-20) mg/dL Creatinine 1.79 H (0.66-1.25) mg/dL Glucose 127 H (74-99) mg/dL POC Glucose (mg/dL) 141 H 174 H (70-110) mg/dL Total Protein 5.4 L (6.3-8.2) g/dL Albumin 3.2 L (3.5-5.0) g/dL Assessment and Plan Assessment: 1. Hyperkalemia associated with acute kidney injury and IMANI inhibitor as prior to admission.blood glucose was elevated at 219 on initial admission which also contributed to hyperkalemia 2. Acute kidney injury, nonoliguric, cardiorenal syndrome. UA is benign. Ultrasound shows no evidence of obstructive uropathy. 3. CHF, with preserved ejection fraction. EF was 55-60% in 2018. 4. Volume overload 5. Chronic kidney disease NKF stage IIIa with previous creatinine 1.4 in July 2023. Etiology is nephrosclerosis Plan: continue with IV Lasix Repeat labs in a.m.
--- NOTE | 2024-01-16 14:39 | P.PN ---
Subjective Progress Note Date: 01/16/24 Principal diagnosis: Acute hypoxic respiratory failure secondary to acute exacerbation of diastolic congestive heart failure This is a pleasant 88-year-old male patient with a known history of congestive heart failure, diabetes mellitus, hypertension, hyperlipidemia, atrial fib rillation anticoagulated with warfarin. Over the past several days he had not been feeling well. He was developing increasing shortness of breath, weakness and some confusion. He was brought into the emergency room earlier this morning for the same. EKG revealed atrial fibrillation with a controlled ventricular response. Chest x-ray revealed evidence of pulmonary vascular congestion and congestive heart failure. White count 13.3. Hemoglobin 11.8. Platelets 385. INR 1.8. Sodium 133. Potassium 5.9. Bicarb 20. BUN 30. Creatinine 1.72. Glucose 219. Troponin 0.225, 0.257. proBNP 12,400. He is seen today in consultation in the emergency department. He is alert. He is requiring BiPAP support currently 12/6 and 50% FiO2. He is having ongoing shortness of breath. Denies any chest pain. He has been initiated on DuoNeb inhalations, IV diuretics, heparin drip. Patient was evaluated today and 01/15/2024, evaluated for his congestive heart failure. I saw this patient yesterday in the ER. Patient is feeling much better today compared to yesterday. Chest x-ray is showing slight improvement in his pulmonary edema. Patient was on BiPAP yesterday, today he is on nasal cannula at2 L, and his O2 saturation is 98%. Patient remains on heparin, PTT is therapeutic.WBC count is 12.3 hemoglobin 10.4. Basic metabolic profile is normal creatinine is 1.83 slightly higher compared to yesterday 1.72. Clinically however the patient feels much better, breathing a lot easier, and he seems much more comfortable today compared to yesterday. Echocardiogram showed good LV function. Patient was today on 01/16/2024, patient remains in the ICU as an overflow. She is on 2 L nasal cannula, echocardiogram showed good LV function but he does have severe aortic stenosis and pulmonary hypertension. Patient remains on Lasix at 40 mg IV push every 12 hours, chest x-ray is showing significant improvement, clinically the patient is feeling better, he is being followed by cardiology and by nephrology. WBC count is 8.7 hemoglobin 10.4 PTT is 65.6, therapeutic BUN is 38 creatinine 1.79, improved to yesterday creatinine of 1.8 Objective - Vital Signs Vital signs: Vital Signs Temp 98.0 F 01/16/24 12:00 Pulse 80 01/16/24 12:00 Resp 18 01/16/24 12:00 BP 132/91 01/16/24 12:00 Pulse Ox 95 01/16/24 12:00 FiO2 40 01/16/24 08:52 Intake & Output 01/15/24 01/16/24 01/16/24 18:59 06:59 18:59 Intake Total 175.372 Output Total 2200 1999 1000 Balance -2200 -1824.628 -1000 Weight 86.6 kg 81.8 kg Intake: Intake, IV Titration 175.372 Amount Heparin Sod,Pork in 0.45% 175.372 NaCl 25,000 unit In 0.45 % NaCl 1 250ml.bag @ 12 UNITS/KG/HR 9.798 mls/hr IV .Q24H [facility] Rx#: [id number] Output: Urine 2199 1999 999 Other: Voiding Method External Catheter External Catheter External Catheter - Exam GENERAL EXAM: Alert, pleasant 88-year-old male patient 2 L nasal cannula, not in distress HEAD: Normocephalic. EYES: Normal reaction of pupils, equal size. NOSE: Clear with pink turbinates. THROAT: No erythema or exudates. NECK: No masses, no JVD. CHEST: No chest wall deformity. LUNGS: Clear bilaterally today no crackles rhonchi or wheezes CVS: S1 and S2 normal 2/6 systolic murmur throughout the precordium irregular rhythm. ABDOMEN: No hepatosplenomegaly, normal bowel sounds, no guarding or rigidity. SKIN: No rashes CENTRAL NERVOUS SYSTEM: No focal deficits, tone is normal in all 4 extremities. EXTREMITIES: There is trace peripheral edema. No clubbing, no cyanosis. Peripheral pulses are intact. - Labs CBC & Chem 7: 01/16/24 05:52 01/16/24 05:52 Labs: Abnormal Lab Results - Last 24 Hours (Table) 01/15/24 01/16/24 01/16/24 Range/Units 17:09 05:52 05:52 RBC 3.66 L (4.30-5.90) m/uL Hgb 10.4 L (13.0-17.5) gm/dL Hct 33.5 L (39.0-53.0) % PT 22.1 H (10.0-12.5) sec INR 2.2 H (<1.2) APTT 65.6 H (22.0-30.0) sec BUN (9-20) mg/dL Creatinine (0.66-1.25) mg/dL Glucose (74-99) mg/dL POC Glucose (mg/dL) 148 H (70-110) mg/dL Total Protein (6.3-8.2) g/dL Albumin (3.5-5.0) g/dL 01/16/24 01/16/24 01/16/24 Range/Units 05:52 06:40 11:30 RBC (4.30-5.90) m/uL Hgb (13.0-17.5) gm/dL Hct (39.0-53.0) % PT (10.0-12.5) sec INR (<1.2) APTT (22.0-30.0) sec BUN 38 H (9-20) mg/dL Creatinine 1.79 H (0.66-1.25) mg/dL Glucose 127 H (74-99) mg/dL POC Glucose (mg/dL) 141 H 174 H (70-110) mg/dL Total Protein 5.4 L (6.3-8.2) g/dL Albumin 3.2 L (3.5-5.0) g/dL Assessment and Plan Assessment: Impression: Acute hypoxemic respiratory failure secondary to an acute exacerbation of aliyah stolic congestive heart failure Atrial fibrillation with a controlled ventricular response anticoagulated with warfarin, presently on heparin Troponin leak suspect secondary to above versus non-ST segment elevation myocardial infarction Diabetes mellitus Hypertension Hyperlipidemia Acute on chronic kidney disease, possible cardiorenal syndrome. History of stage IIIA chronic kidney disease Severe aortic stenosis Secondary pulmonary hypertension Recommendation: Continue O2 and titrate accordingly Continue diuretics and monitor electrolytes monitor renal profile but patient is on Lasix 40 mg IV push twice daily Continue heparin and eventually transition back to Coumadin Continue GI DVT prophylaxis Transferred to a monitored bed and selective once a bed is available Continue to monitor daily labs and renal profile. Will continue to follow Time with Patient: Less than 30
[2024-01-16 16:45] LABS: Glucose,Whole Blood 190 mg/dL (70-110)
[2024-01-16] MEDS: WARFARIN 2.5 MG TAB PO SCH (17:52)
[2024-01-16 20:14] LABS: Glucose,Whole Blood 204 mg/dL (70-110)
[2024-01-17 06:13] LABS: Glucose,Whole Blood 163 mg/dL (70-110)
[2024-01-17 07:37] VITALS: TEMP 98
[2024-01-17 07:51] LABS: Basophils % (A) 0 %; Eosinophils # (A) 0.1 k/uL (0-0.7); Eosinophils % (A) 1 %; HCT 38.5 % (39.0-53.0); HGB 11.9 gm/dL (13.0-17.5); Hypochromasia Slight; Lymphocytes # (A) 0.9 k/uL (1.0-4.8); Lymphocytes % (A) 9 %; MCH 28.4 pg (25.0-35.0); MCV 91.6 fL (80.0-100.0); Mean Platelet Volume 8.5; Monocytes # (A) 0.6 k/uL (0-1.0); Monocytes % (A) 6 %; Neutrophils # (A) 8.5 k/uL (1.3-7.7); Neutrophils % (A) 82 %; Platelet Count 305 k/uL (150-450); RBC 4.21 m/uL (4.30-5.90); RDW 15.6 % (11.5-15.5); WBC 10.4 k/uL (3.8-10.6)
[2024-01-17 08:01] LABS: INR 2.4 (<1.2); Prothrombin Time 24.1 sec (10.0-12.5)
[2024-01-17 08:08] LABS: ALT 22 U/L (4-49); AST 39 U/L (17-59); African American GFR (CKD) 51 (>60 ml/min/1.73 sqM); Albumin 3.8 g/dL (3.5-5.0); Alkaline Phosphatase 51 U/L (38-126); Anion Gap 7 mmol/L; Blood Urea Nitrogen 34 mg/dL (9-20); Calcium 9.4 mg/dL (8.4-10.2); Carbon Dioxide 29 mmol/L (22-30); Chloride 103 mmol/L (98-107); Glucose 171 mg/dL (74-99); Non-African American GFR(CKD) 44 (>60 ml/min/1.73 sqM); Potassium 3.9 mmol/L (3.5-5.1); Sodium 139 mmol/L (137-145); Total Bilirubin 1.3 mg/dL (0.2-1.3); Total Protein 6.1 g/dL (6.3-8.2)
[2024-01-17 11:23] LABS: Glucose,Whole Blood 196 mg/dL (70-110)
[2024-01-17] MEDS: amLODIPine 5 MG TAB PO SCH (12:00)
--- NOTE | 2024-01-17 12:19 | P.PN ---
Subjective Patient is seen for follow-up for acute kidney injury, mostly cardiorenal. Currently being diuresed. Serum creatinine at 1.4 today. Good urine output. Shortness of breath has improved. Objective - Vital Signs Vital signs: Vital Signs Temp 98 F 01/17/24 07:37 Pulse 80 01/17/24 07:37 Resp 17 01/17/24 07:37 BP 144/77 01/17/24 07:37 Pulse Ox 92 L 01/17/24 07:41 FiO2 21 01/17/24 07:41 Intake & Output 01/16/24 01/17/24 01/17/24 18:59 06:59 18:59 Intake Total 118 Output Total 1000 2600 450 Balance -8814 -0558 -195 Weight 83 kg Intake: Oral 118 Output: Urine 1000 2600 450 Other: Voiding Method External Catheter External Catheter External Catheter # Voids 0 - Exam patient is awake, comfortable, no acute distress. Examination of the heart S1 and S2 Examination of the lungs bilateral breath sounds are heard Abdomen is soft nontender Examination of lower extremities shows trace edema bilaterally DIGITAL ARTIST exam grossly intact - Labs CBC & Chem 7: 01/17/24 07:27 01/17/24 07:27 Labs: Abnormal Lab Results - Last 24 Hours (Table) 01/16/24 01/16/24 01/17/24 Range/Units 16:43 20:12 06:11 RBC (4.30-5.90) m/uL Hgb (13.0-17.5) gm/dL Hct (39.0-53.0) % RDW (11.5-15.5) % Neutrophils # (1.3-7.7) k/uL Lymphocytes # (1.0-4.8) k/uL PT (10.0-12.5) sec INR (<1.2) BUN (9-20) mg/dL Creatinine (0.66-1.25) mg/dL Glucose (74-99) mg/dL POC Glucose (mg/dL) 190 H 204 H 163 H (70-110) mg/dL Total Protein (6.3-8.2) g/dL 01/17/24 01/17/24 01/17/24 Range/Units 07:27 07:27 07:27 RBC 4.21 L (4.30-5.90) m/uL Hgb 11.9 L (13.0-17.5) gm/dL Hct 38.5 L (39.0-53.0) % RDW 15.6 H (11.5-15.5) % Neutrophils # 8.5 H (1.3-7.7) k/uL Lymphocytes # 0.9 L (1.0-4.8) k/uL PT 24.1 H (10.0-12.5) sec INR 2.4 H (<1.2) BUN 34 H (9-20) mg/dL Creatinine 1.42 H (0.66-1.25) mg/dL Glucose 171 H (74-99) mg/dL POC Glucose (mg/dL) (70-110) mg/dL Total Protein 6.1 L (6.3-8.2) g/dL 01/17/24 Range/Units 11:21 RBC (4.30-5.90) m/uL Hgb (13.0-17.5) gm/dL Hct (39.0-53.0) % RDW (11.5-15.5) % Neutrophils # (1.3-7.7) k/uL Lymphocytes # (1.0-4.8) k/uL PT (10.0-12.5) sec INR (<1.2) BUN (9-20) mg/dL Creatinine (0.66-1.25) mg/dL Glucose (74-99) mg/dL POC Glucose (mg/dL) 196 H (70-110) mg/dL Total Protein (6.3-8.2) g/dL Assessment and Plan Assessment: 1. Hyperkalemia associated with acute kidney injury and IMANI inhibitor as prior to admission. blood glucose was elevated at 219 on initial admission which also contributed to hyperkalemia 2. Acute kidney injury, nonoliguric, cardiorenal syndrome. UA is benign. Ultrasound shows no evidence of obstructive uropathy. 3. CHF, with preserved ejection fraction. EF was 55-60% in 2018. 4. Volume overload 5. Chronic kidney disease NKF stage IIIa with previous creatinine 1.4 in July 2023. Etiology is nephrosclerosis Plan: continue with Lasix stable for discharge from nephrology standpoint.
[2024-01-17 12:47] VITALS: BP 107/69; PULSE 90; RESP 16
--- NOTE | 2024-01-17 13:48 | P.PN ---
Subjective Progress Note Date: 01/17/24 Principal diagnosis: Acute hypoxic respiratory failure secondary to acute exacerbation of diastolic congestive heart failure This is a pleasant 88-year-old male patient with a known history of congestive heart failure, diabetes mellitus, hypertension, hyperlipidemia, atrial fib rillation anticoagulated with warfarin. Over the past several days he had not been feeling well. He was developing increasing shortness of breath, weakness and some confusion. He was brought into the emergency room earlier this morning for the same. EKG revealed atrial fibrillation with a controlled ventricular response. Chest x-ray revealed evidence of pulmonary vascular congestion and congestive heart failure. White count 13.3. Hemoglobin 11.8. Platelets 385. INR 1.8. Sodium 133. Potassium 5.9. Bicarb 20. BUN 30. Creatinine 1.72. Glucose 219. Troponin 0.225, 0.257. proBNP 12,400. He is seen today in consultation in the emergency department. He is alert. He is requiring BiPAP support currently 12/6 and 50% FiO2. He is having ongoing shortness of breath. Denies any chest pain. He has been initiated on DuoNeb inhalations, IV diuretics, heparin drip. Patient was evaluated today and 01/15/2024, evaluated for his congestive heart failure. I saw this patient yesterday in the ER. Patient is feeling much better today compared to yesterday. Chest x-ray is showing slight improvement in his pulmonary edema. Patient was on BiPAP yesterday, today he is on nasal cannula at2 L, and his O2 saturation is 98%. Patient remains on heparin, PTT is therapeutic.WBC count is 12.3 hemoglobin 10.4. Basic metabolic profile is normal creatinine is 1.83 slightly higher compared to yesterday 1.72. Clinically however the patient feels much better, breathing a lot easier, and he seems much more comfortable today compared to yesterday. Echocardiogram showed good LV function. Patient was today on 01/16/2024, patient remains in the ICU as an overflow. She is on 2 L nasal cannula, echocardiogram showed good LV function but he does have severe aortic stenosis and pulmonary hypertension. Patient remains on Lasix at 40 mg IV push every 12 hours, chest x-ray is showing significant improvement, clinically the patient is feeling better, he is being followed by cardiology and by nephrology. WBC count is 8.7 hemoglobin 10.4 PTT is 65.6, therapeutic BUN is 38 creatinine 1.79, improved to yesterday creatinine of 1.8 Patient was seen today on 01/17/2024, patient is now on the medical floor, doing well, significantly improved compared to how he felt when he came in, and his O2 requirement has improved, he is now on room air, does not seem to be in any distress was told by cardiology that he may be discharged home today Objective - Vital Signs Vital signs: Vital Signs Temp 98 F 01/17/24 12:45 Pulse 90 01/17/24 12:45 Resp 16 01/17/24 12:45 BP 107/69 01/17/24 12:45 Pulse Ox 99 01/17/24 12:45 FiO2 21 01/17/24 07:41 Intake & Output 01/16/24 01/17/24 01/17/24 18:59 06:59 18:59 Intake Total 118 Output Total 1000 2600 450 Balance -1000 -2600 -332 Weight 83 kg Intake: Oral 118 Output: Urine 1000 2600 450 Other: Voiding Method External Catheter External Catheter External Catheter # Voids 0 - Exam GENERAL EXAM: Alert, pleasant 88-year-old male patient on room air, HEAD: Normocephalic. EYES: Normal reaction of pupils, equal size. NOSE: Clear with pink turbinates. THROAT: No erythema or exudates. NECK: No masses, no JVD. CHEST: No chest wall deformity. LUNGS: Clear bilaterally today no crackles rhonchi or wheezes CVS: S1 and S2 normal 2/6 systolic murmur throughout the precordium irregular rhythm. ABDOMEN: No hepatosplenomegaly, normal bowel sounds, no guarding or rigidity. SKIN: No rashes CENTRAL NERVOUS SYSTEM: No focal deficits, tone is normal in all 4 extremities. EXTREMITIES: There is trace peripheral edema. No clubbing, no cyanosis. Peripheral pulses are intact. - Labs CBC & Chem 7: 01/17/24 07:27 01/17/24 07:27 Labs: Abnormal Lab Results - Last 24 Hours (Table) 01/16/24 01/16/24 01/17/24 Range/Units 16:43 20:12 06:11 RBC (4.30-5.90) m/uL Hgb (13.0-17.5) gm/dL Hct (39.0-53.0) % RDW (11.5-15.5) % Neutrophils # (1.3-7.7) k/uL Lymphocytes # (1.0-4.8) k/uL PT (10.0-12.5) sec INR (<1.2) BUN (9-20) mg/dL Creatinine (0.66-1.25) mg/dL Glucose (74-99) mg/dL POC Glucose (mg/dL) 190 H 204 H 163 H (70-110) mg/dL Total Protein (6.3-8.2) g/dL 01/17/24 01/17/24 01/17/24 Range/Units 07:27 07:27 07:27 RBC 4.21 L (4.30-5.90) m/uL Hgb 11.9 L (13.0-17.5) gm/dL Hct 38.5 L (39.0-53.0) % RDW 15.6 H (11.5-15.5) % Neutrophils # 8.5 H (1.3-7.7) k/uL Lymphocytes # 0.9 L (1.0-4.8) k/uL PT 24.1 H (10.0-12.5) sec INR 2.4 H (<1.2) BUN 34 H (9-20) mg/dL Creatinine 1.42 H (0.66-1.25) mg/dL Glucose 171 H (74-99) mg/dL POC Glucose (mg/dL) (70-110) mg/dL Total Protein 6.1 L (6.3-8.2) g/dL 01/17/24 Range/Units 11:21 RBC (4.30-5.90) m/uL Hgb (13.0-17.5) gm/dL Hct (39.0-53.0) % RDW (11.5-15.5) % Neutrophils # (1.3-7.7) k/uL Lymphocytes # (1.0-4.8) k/uL PT (10.0-12.5) sec INR (<1.2) BUN (9-20) mg/dL Creatinine (0.66-1.25) mg/dL Glucose (74-99) mg/dL POC Glucose (mg/dL) 196 H (70-110) mg/dL Total Protein (6.3-8.2) g/dL Assessment and Plan Assessment: Impression: Acute hypoxemic respiratory failure secondary to an acute exacerbation of diastolic congestive heart failure Atrial fibrillation with a controlled ventricular response anticoagulated with warfarin, presently on heparin Troponin leak suspect secondary to above versus non-ST segment elevation myocardial infarction Diabetes mellitus Hypertension Hyperlipidemia Acute on chronic kidney disease, possible cardiorenal syndrome. History of stage IIIA chronic kidney disease Severe aortic stenosis Secondary pulmonary hypertension Recommendation: Continue present supportive care measures Continue diuretics Patient to go back on Coumadin Continue GI DVT prophylaxis Will clear the patient for discharge if cleared by cardiology already. Time with Patient: Less than 30
--- NOTE | 2024-01-17 13:58 | P.PN ---
Subjective HISTORY OF PRESENT ILLNESS: Patient examined this morning. Patient is sitting up in the chair. Patient currently denies any chest pain or pressure. He denies any shortness of breath. Vital signs are stable. PHYSICAL EXAM: VITAL SIGNS: Reviewed. GENERAL: Well-developed in no acute distress. NECK: Supple. No JVD or thyromegaly LUNGS: Respirations even and unlabored. Lungs essentially clear to auscultation bilaterally. HEART: Irregular rate and rhythm. S1 and S2 heard. Systolic murmur noted. EXTREMITIES: Normal range of motion. No clubbing or cyanosis. Peripheral pulses intact. No lower extremity edema ASSESSMENT: Shortness of breath Acute hypoxic respiratory failure Acute on chronic heart failure with preserved EF Permanent atrial fibrillation with RVR Elevated troponin, type II [place] secondary to oxygen supply and demand mismatch secondary to CHF and respiratory failure Hypertension Hyperlipidemia Acute on chronic kidney disease Severe aortic stenosis Pulmonary hypertension PLAN: Increase carvedilol to 25 mg twice a day Add amlodipine 5 mg daily Continue oral Lasix 40 mg daily Discontinue Cardizem and enalapril upon discharge Patient is stable for discharge home today from a cardiac standpoint Patient is to follow-up in the office postdischarge Nurse practitioner note has been reviewed by physician. Signing provider agrees with the documented findings, assessment, and plan of care documented by DRAPERY COUNSELOR as a scribe. Objective - Vital Signs Vital signs: Vital Signs Temp 98 F 01/17/24 12:45 Pulse 90 01/17/24 12:45 Resp 16 01/17/24 12:45 BP 107/69 01/17/24 12:45 Pulse Ox 99 01/17/24 12:45 FiO2 21 01/17/24 07:41 Intake & Output 01/16/24 01/17/24 01/17/24 18:59 06:59 18:59 Intake Total 118 Output Total 1000 2600 450 Balance -1000 2600 -332 Weight 83 kg Intake: Oral 118 Output: Urine 1000 2600 450 Other: Voiding Method External Catheter External Catheter External Catheter # Voids 0 - Labs CBC & Chem 7: 01/17/24 07:27 01/17/24 07:27 Labs: Abnormal Lab Results - Last 24 Hours (Table) 01/16/24 01/16/24 01/17/24 Range/Units 16:43 20:12 06:11 RBC (4.30-5.90) m/uL Hgb (13.0-17.5) gm/dL Hct (39.0-53.0) % RDW (11.5-15.5) % Neutrophils # (1.3-7.7) k/uL Lymphocytes # (1.0-4.8) k/uL PT (10.0-12.5) sec INR (<1.2) BUN (9-20) mg/dL Creatinine (0.66-1.25) mg/dL Glucose (74-99) mg/dL POC Glucose (mg/dL) 190 H 204 H 163 H (70-110) mg/dL Total Protein (6.3-8.2) g/dL 01/17/24 01/17/24 01/17/24 Range/Units 07:27 07:27 07:27 RBC 4.21 L (4.30-5.90) m/uL Hgb 11.9 L (13.0-17.5) gm/dL Hct 38.5 L (39.0-53.0) % RDW 15.6 H (11.5-15.5) % Neutrophils # 8.5 H (1.3-7.7) k/uL Lymphocytes # 0.9 L (1.0-4.8) k/uL PT 24.1 H (10.0-12.5) sec INR 2.4 H (<1.2) BUN 34 H (9-20) mg/dL Creatinine 1.42 H (0.66-1.25) mg/dL Glucose 171 H (74-99) mg/dL POC Glucose (mg/dL) (70-110) mg/dL Total Protein 6.1 L (6.3-8.2) g/dL 01/17/24 Range/Units 11:21 RBC (4.30-5.90) m/uL Hgb (13.0-17.5) gm/dL Hct (39.0-53.0) % RDW (11.5-15.5) % Neutrophils # (1.3-7.7) k/uL Lymphocytes # (1.0-4.8) k/uL PT (10.0-12.5) sec INR (<1.2) BUN (9-20) mg/dL Creatinine (0.66-1.25) mg/dL Glucose (74-99) mg/dL POC Glucose (mg/dL) 196 H (70-110) mg/dL Total Protein (6.3-8.2) g/dL
--- NOTE | 2024-01-17 16:58 | P.DS ---
Providers Date of admission: 01/14/24 13:51 Expected date of discharge: 01/17/24 Attending physician: Rosalind Amaya Consults: 01/14/24 13:49 Consult Physician Routine Consulting Provider: Zenaida Egnle Consult Reason/Comments: hypoxia Do you want consulting provider notified?: Yes Consult Physician Routine Consulting Provider: Radhika Burgess Consult Reason/Comments: chf Do you want consulting provider notified?: Yes 01/14/24 14:36 Consult Physician Routine Consulting Provider: Meli Apodaca Consult Reason/Comments: KELLI Do you want consulting provider notified?: Yes Primary care physician: Nicole Little Hospital Course: Diagnosis on discharge: 1. Acute Exacerbation of diastolic CHF 2. Hypoxia secondary to acute CHF exacerbation 3. Acute kidney injury with hyperkalemia 4. Elevated troponin 5. History of atrial fibrillation 6. History of cardiomyopathy 7. History of diabetes mellitus 8. History of essential hypertension Hospital course: this is an 88-year-old male patient of Dr. Little who presented with increased shortness of breath that has been increasing over the past few days.patient has past medical history of congestive heart failure, diabetes mellitus, hyperlipidemia and hypertension. Chest x-ray completed showing clinical correlation recommended for congestive heart failure. BNP elevated at 12,400. Troponin also elevated at 0.225, creatinine 1.7 to 1:30 potassium 5.9. Patient's INR 1.8 patient is maintained on home dose Coumadin for atrial fibrillation. White blood cell 13.3 and hemoglobin 11.8. Per ER patient was started on BiPAP and IV Lasix. Cardiology and pulmonary service is consulted. 2-D echo has been ordered. cardiology, pulmonary and nephrology service is consulted. At this time patient is resting comfortably in bed on BiPAP. Patient denies any chest pain. Patient denies nausea vomiting or diarrhea. Patient denies any urinary burning or frequency On 4Patient's alert and oriented 3. Patient currently in the intensive care unit. BiPAP has been removed patient on 3 L nasal cannula appears less tachypneic than yesterday. Patient remains on IV Lasix. Patient also started on IV heparin due to elevated troponin. Cardiology and pulmonary services are following. Nephrology services also consulted current vital signs temp 98.1, heart rate 60, respiratory rate 22, blood pressure 132/70 with a pulse ox of 96% on 3 L. Patient denies chest pain or shortness of breath. Patient denies nausea vomiting or diarrhea. Patient denies any urinary burning or frequency On 01/16/2024 patient is alert and oriented 3. Patient reports improvement with shortness of breath.Patient remains on IV Lasix. INR today therapeutic at 2.2 heparin DC'd patient resumed on home dose of Coumadin per cardiology. Current vital signs temp 97.8, heart rate 82, respiratory rate 18, blood pressure 118/59 with pulse ox 98% on 2 L On 01/17/2024 patient was seen and examined on the telemetry floor he is feeling well, his shortness of breath has improved significantly, he was evaluated by cardiology Dr. Gilbert, he was switched to oral Lasix and was cleared for discharge. During this admission cardiology adjusted his cardiac medications, lisinopril and diltiazem were discontinued, dose of Coreg was increased to 12.5 milligram twice daily and amlodipine 5 mg once daily was added. Patient will be followed by primary care physician and cardiology in the next 1 to 2 weeks. Patient Condition at Discharge: Fair Plan - Discharge Summary Discharge Rx Participant: No New Discharge Prescriptions: New RX: carvediloL [Coreg*] 25 mg PO BID-W/MEALS 30 Days #60 tab RX: amLODIPine [Norvasc] 5 mg PO DAILY 30 Days #30 tab Continue RX: Pravastatin Sodium [Pravachol] 80 mg PO DAILY RX: Furosemide [Lasix] 40 mg PO DAILY RX: Potassium Chloride [Klor-Con 10 ER] 10 meq PO DAILY RX: glipiZIDE XL [Glucotrol XL] 10 mg PO DAILY RX: metFORMIN HCL [Glucophage] 1,000 mg PO DAILY RX: Warfarin Sodium [Coumadin] 2.5 mg PO DAILY RX: Omeprazole 20 mg PO DAILY PRN PRN Reason: acid reflux RX: [place]-3 Fatty Acids/Fish Oil [Fish Oil 1,000 mg Softgel] 1 cap PO DAILY RX: Glucosamine/Chondr Harmon A Sod [Osteo Bi-Flex Caplet] 1 tab PO DAILY Discontinued RX: dilTIAZem HCL [Cardizem] 240 mg PO DAILY RX: carvediloL [Coreg] 6.25 mg PO BID RX: Enalapril [Vasotec] 20 mg PO BID Discharge Medication List RX: Furosemide [Lasix] 40 mg PO DAILY 05/11/18 [History] RX: [place]-3 Fatty Acids/Fish Oil [Fish Oil 1,000 mg Softgel] 1 cap PO DAILY 05/11/18 [History] RX: Omeprazole 20 mg PO DAILY PRN 05/11/18 [History] RX: Potassium Chloride [Klor-Con 10 ER] 10 meq PO DAILY 05/11/18 [History] RX: Pravastatin Sodium [Pravachol] 80 mg PO DAILY 05/11/18 [History] RX: Warfarin Sodium [Coumadin] 2.5 mg PO DAILY 05/11/18 [History] RX: glipiZIDE XL [Glucotrol XL] 10 mg PO DAILY 05/11/18 [History] RX: metFORMIN HCL [Glucophage] 1,000 mg PO DAILY 05/11/18 [History] RX: Glucosamine/Chondr Harmon A Sod [Osteo Bi-Flex Caplet] 1 tab PO DAILY 01/14/24 [History] RX: amLODIPine [Norvasc] 5 mg PO DAILY 30 Days #30 tab 01/17/24 [Rx] RX: carvediloL [Coreg*] 25 mg PO BID-W/MEALS 30 Days #60 tab 01/17/24 [Rx] Follow up Appointment(s)/Referral(s): Nicole Little MD [Primary Care Provider] - 1-2 days (please call to schedule ) Yovany Aranda MD [STAFF PHYSICIAN] - 1 Week Patient Instructions/Handouts: Heart Failure (DC) Discharge Disposition: HOME SELF-CARE
[2024-01-17] MEDS ORDERED: carvediloL 12.5 MG TAB PO SCH (17:30)
[2024-01-18] MEDS ORDERED: FUROSEMIDE 40 MG TAB PO SCH (09:00)
--- NOTE | 2024-01-18 22:56 | CDI ---
Documentation Clarification Form Date: 01/18/2024 10:37:58 PM From: Cammie Landeros Phone: Admit Date: 01/14/2024 01:51:00 PM Patient Name: Javon Chavira Visit Number: [id number] Discharge Date: 01/17/2024 12:50:00 PM ATTENTION: The Clinical Documentation Specialists (CDI) and [facility] Coding Staff appreciate your assistance in clarifying documentation. Please respond to the clarification below the line at the bottom and electronically sign. The CDI & [facility] Coding staff will review the response and follow-up if needed. Please note: Queries are made part of the Legal Health Record. If you have any questions, please contact the author of this message via ITS. Dr. Rosalind Amaya Your patient has the documented diagnosis of: Acute exacerbation of chronicCHF probablysystolic per Dr Aranda Consult 01/14 Acute exacerbation of diastolicversussystolic CHF per Pulmonology Consult Note 01/13 Acute Exacerbation of diastolic CHF Progress Note 01/14 Clarification regarding the type of CHF is requested. History/Risk Factors: 88yo M, AHRF, CHF, permanent A Fib, NSTEMI II, HTN, HLD, KELLI on CKD IIIa, /MR, 2nd pulmonary HTN, cardiomyopathy Clinical Indicators: VS/Pulse OX: O2 Sat by Pulse 85 L 95 BNP: 12,400 Echocardiogram Results: NEIO00-65%, moderate increased LV wall thickness, severelydilatedleft atrium, Mild to moderateMR, moderate to severeAS, smallpericardial effusion Chest x ray: Theheart size is enlarged. The pulmonary vasculature is prominent. Diffuse increased lung markings are present bilaterally greater in the lung bases. Correlate forpulmonary edema. Treatment: Increase carvedilol to 25 mg twice a day. Add amlodipine 5 mg daily. Continue oral Lasix 40 mg daily. Discontinue Cardizem and enalapril upon discharge. Patient is stable for discharge home today from a cardiac standpoint. Patient is tofollow-upin the office post discharge In your professional opinion, can you please clarify type of CHF if known? [ ] Acute on Chronic Systolic Heart Failure (reduced EF) [ x ] Acute on Chronic Diastolic Heart Failure (preserved EF) [ ] Acute on Chronic Heart Failure Systolic & Diastolic Heart Failure [ ] Other, please specify [ ] Unable to determine (Template Last Revised: August 2020) MTDD
== END 2024-01-17 12:50 | disposition home or self-care (01) | DRG 280 ==
LOC: EC 10:54 → 3SCARD 13:51 → 2SICU 15:01 → 3SCARD 01-16 14:30
PROVIDERS: ADMIT Internal Medicine; ATTEND Internal Medicine
PROC: 5A09357 Assistance with Respiratory Ventilation, Less than 24 Consecutive Hours, Continuous Positive Airway Pressure (ICD-10-PCS; principal; 2024-01-14)
DX: I13.0 Hypertensive heart and chronic kidney disease with heart failure and stage 1 through stage 4 chronic kidney disease, or unspecified chronic kidney disease (principal); I50.33 Acute on chronic diastolic (congestive) heart failure; I21.A1 Myocardial infarction type 2; J18.9 Pneumonia, unspecified organism; J96.01 Acute respiratory failure with hypoxia; N17.9 Acute kidney failure, unspecified; J44.0 Chronic obstructive pulmonary disease with (acute) lower respiratory infection; I48.21 Permanent atrial fibrillation; I27.29 Other secondary pulmonary hypertension; E11.22 Type 2 diabetes mellitus with diabetic chronic kidney disease; I42.9 Cardiomyopathy, unspecified; Z79.01 Long term (current) use of anticoagulants; N18.31 Chronic kidney disease, stage 3a; E11.65 Type 2 diabetes mellitus with hyperglycemia; I08.0 Rheumatic disorders of both mitral and aortic valves; E78.5 Hyperlipidemia, unspecified; Z96.641 Presence of right artificial hip joint; E87.5 Hyperkalemia; Z79.899 Other long term (current) drug therapy; Z79.84 Long term (current) use of oral hypoglycemic drugs; Z87.891 Personal history of nicotine dependence
CPT/HCPCS: 36415; 51702; 71045; 76770; 80053; 81003; 83036; 83735; 83880; 84484; 85025; 85610; 85730; 93005; 93306; 94640; 94660; 94760; 96365; 96366; 96375; 99291

== ENCOUNTER 2024-01-31 09:51 | Day surgery (SDC) | payer MEDICARE, BC ==
[2024-01-30 11:00] VITALS: BMI 29.0
[2024-01-31] MEDS ORDERED: SODIUM CHLORIDE 0.9% 1,000 ML BAG IV STA (10:12)
[2024-01-31 10:24] VITALS: TEMP 97.6
[2024-01-31 10:24] LABS: Glucose,Whole Blood 176 mg/dL (70-110)
[2024-01-31] MEDS: IV FLUID CONTINUATION 1,000 ML IV ONE (10:34)
[2024-01-31 10:38] LABS: INR 1.3 (<1.2)
[2024-01-31] MEDS ORDERED: fentaNYL (PF) 50 MCG/ML 2 ML AMP ONE (10:51)
[2024-01-31] MEDS: MIDAZOLAM 2 MG/2 ML VIAL IVP ONE (11:06)
[2024-01-31] MEDS: BENZOCAINE SPRAY 1 CAN TOPICAL ONE (11:06)
[2024-01-31] MEDS: fentaNYL (PF) 50 MCG/1 ML VIAL IVP ONE (11:08)
--- NOTE | 2024-01-31 12:05 | CC ---
CARDIAC CATHETERIZATION REPORT PROCEDURE: Transesophageal echo. INDICATION: Aortic stenosis. PROCEDURE NOTE: After obtaining informed consent, transesophageal echocardiogram was performed in left lateral position using an Omniplane probe. Local and IV sedation were obtained with Xylocaine spray, 1 mg of Versed, and 50 mcg of fentanyl. The patient tolerated the procedure well without any obvious immediate complications. Total sedation time was 10 minutes. FINDINGS: 1. Aortic valve: Aortic valve is a 3-leaflet valve that is heavily calcified and shows severe restriction in leaflet mobility with a valve area of 0.6 squared cm by planimetry. There is trace aortic regurgitation noted. Mitral valve is anatomically normal. There is moderate to severe central mitral regurgitation noted. There is mild tricuspid regurgitation noted. Left atrium appears mildly enlarged. Right atrium and right ventricle seen within normal limits. Left ventricle has normal size and systolic function. 2. Interatrial septum, there is no evidence of [id number] shunt by color-flow Doppler or [id number] shunt by agitated saline contrast study. There is mild to moderate atherosclerotic changes noted involving the aorta. CONCLUSION: 1. Severe aortic stenosis involving a heavily calcified tricuspid aortic valve. 2. Normal left ventricular systolic function. PLAN: I reviewed JAMES findings with the patient and his daughter and they wished to proceed with a TAVR. I am going to schedule him for a cardiac catheterization and refer him off to TAVR. INR is subtherapeutic at 1.3. He will get 5 mg of Coumadin today and tomorrow. I will try to schedule this early next week. MMODL / IJN: [id number] /
[2024-01-31 12:16] LABS: Basophils % (A) 0 %; Eosinophils % (A) 0 %; HCT 30.9 % (39.0-53.0); Hypochromasia Marked; Lymphocytes # (A) 0.5 k/uL (1.0-4.8); Lymphocytes % (A) 7 %; MCH 28.1 pg (25.0-35.0); MCV 90.5 fL (80.0-100.0); Monocytes # (A) 0.4 k/uL (0-1.0); Monocytes % (A) 5 %; Neutrophils # (A) 7.3 k/uL (1.3-7.7); Neutrophils % (A) 87 %; Platelet Count 237 k/uL (150-450); RBC 3.41 m/uL (4.30-5.90); RDW 15.4 % (11.5-15.5); WBC 8.4 k/uL (3.8-10.6)
[2024-01-31 12:17] LABS: HGB 9.6 gm/dL (13.0-17.5)
[2024-01-31 12:23] LABS: African American GFR (CKD) 54 (>60 ml/min/1.73 sqM); Anion Gap 6 mmol/L; Blood Urea Nitrogen 28 mg/dL (9-20); Calcium 9.3 mg/dL (8.4-10.2); Carbon Dioxide 23 mmol/L (22-30); Chloride 110 mmol/L (98-107); Glucose 156 mg/dL (74-99); Non-African American GFR(CKD) 46 (>60 ml/min/1.73 sqM); Potassium 4.9 mmol/L (3.5-5.1); Sodium 139 mmol/L (137-145)
[2024-01-31 12:54] VITALS: BP 114/58; RESP 16
[2024-01-31 12:55] VITALS: PULSE 88
== END 2024-01-31 12:40 | disposition home or self-care (01) ==
LOC: CATHCVL 09:51
PROVIDERS: ATTEND Internal Medicine Cardiovascular Disease
DX: I35.0 Nonrheumatic aortic (valve) stenosis (principal); E78.5 Hyperlipidemia, unspecified; E11.9 Type 2 diabetes mellitus without complications; I48.21 Permanent atrial fibrillation; I11.0 Hypertensive heart disease with heart failure; I50.32 Chronic diastolic (congestive) heart failure; Z87.891 Personal history of nicotine dependence; Z79.01 Long term (current) use of anticoagulants; Z79.899 Other long term (current) drug therapy
CPT/HCPCS: 93312; 93320; 93325; 80048; 85025; 85610; J2250; J3010

== ENCOUNTER 2024-02-03 09:50 | Inpatient (IN) | payer MEDICARE, BC ==
--- NOTE | 2024-02-03 10:25 | ED ---
General Adult HPI - General Chief complaint: Shortness of Breath Stated complaint: SOB Time Seen by Provider: 02/03/24 10:16 Source: patient, family, RN notes reviewed Mode of arrival: wheelchair Limitations: no limitations - History of Present Illness Initial comments: Patient is an 88-year-old male present to the emergency department with concerns with difficulty in breathing. Onset of symptoms was last 3 to 4 days. Patient was in the hospital a couple weeks ago with similar symptoms. Patient has heart catheterization scheduled this upcoming week with Dr. Gilbert. Patient states dyspnea worsens with exertion as well as lying flat. No calf pain or leg swelling. Patient denies chest discomfort. - Related Data Home Medications Medication Instructions Recorded Confirmed Furosemide [Lasix] 40 mg PO DAILY 05/11/18 01/31/24 [place]-3 Fatty Acids/Fish Oil [Fish 1 cap PO DAILY 05/11/18 01/31/24 Oil 1,000 mg Softgel] Omeprazole 20 mg PO DAILY PRN 05/11/18 01/31/24 Potassium Chloride [Klor-Con 10 ER] 10 meq PO DAILY 05/11/18 01/31/24 Pravastatin Sodium [Pravachol] 80 mg PO DAILY 05/11/18 01/31/24 Warfarin Sodium [Coumadin] 2.5 mg PO DAILY 05/11/18 01/31/24 glipiZIDE XL [Glucotrol XL] 10 mg PO DAILY 05/11/18 01/31/24 metFORMIN HCL [Glucophage] 1,000 mg PO DAILY 05/11/18 01/31/24 Glucosamine/Chondr Harmon A Sod [Osteo 1 tab PO DAILY 01/14/24 01/31/24 Bi-Flex Caplet] Previous Rx's Medication Instructions Recorded amLODIPine [Norvasc] 5 mg PO DAILY 30 Days #30 tab 01/17/24 carvediloL [Coreg*] 25 mg PO BID-W/MEALS 30 Days #60 01/17/24 tab Allergies Allergy/AdvReac Type Severity Reaction Status Date / Time No Known Allergies Allergy Verified 02/03/24 10:11 Review of Systems ROS Statement: Those systems with pertinent positive or pertinent negative responses have been documented in the HPI. ROS Other: All systems not noted in ROS Statement are negative. Constitutional: Denies: fever Eyes: Denies: eye pain ENT: Denies: ear pain Respiratory: Reports: as per HPI, cough, dyspnea Cardiovascular: Reports: dyspnea on exertion, orthopnea. Denies: chest pain Endocrine: Reports: fatigue Gastrointestinal: Denies: abdominal pain Musculoskeletal: Denies: back pain Past Medical History Past Medical History: Atrial Fibrillation, Heart Failure, Diabetes Mellitus, Hyperlipidemia, Hypertension, Myocardial Infarction ([place]) Additional Past Medical History / Comment(s): Recent hospitalization for SOB, states had [place](01/14/24). Last Myocardial Infarction Date:: 01/14/24 History of Any Multi-Drug Resistant Organisms: None Reported Past Surgical History: Joint Replacement, Prostate Surgery Additional Past Surgical History / Comment(s): Right hip replacement, cataract surgery. Past Anesthesia/Blood Transfusion Reactions: No Reported Reaction Past Psychological History: No Psychological Hx Reported Smoking Status: Former smoker Past Alcohol Use History: Occasional Past Drug Use History: None Reported - Past Family History Mother Family Medical History: No Reported History General Exam Limitations: no limitations General appearance: alert, in no apparent distress Head exam: Present: normocephalic Eye exam: Present: normal appearance Respiratory exam: Present: decreased breath sounds Cardiovascular Exam: Present: regular rate, normal rhythm, systolic murmur Expanded Peripheral pulses: 2+: Radial (R), Radial (L) GI/Abdominal exam: Present: soft. Absent: tenderness Extremities exam: Present: normal inspection. Absent: pedal edema, calf tenderness Neurological exam: Present: alert Psychiatric exam: Present: normal affect, normal mood Skin exam: Present: normal color Course Vital Signs 02/03/24 10:04 Temperature 97.8 F Pulse Rate 82 Respiratory 18 Rate Blood Pressure 134/65 O2 Sat by Pulse 97 Oximetry EKG Findings - EKG Results: EKG: interpreted by ERMD, normal axis, normal QRS, normal ST/T EKG shows: atrial fibrillation Medical Decision Making - Medical Decision Making Was pt. sent in by a medical professional or institution (, PA, [employer], urgent care, hospital, or prison...) When possible be specific @ -No Did you speak to anyone other than the patient for history (EMS, parent, family, police, friend...)? What history was obtained from this source @ -Family is present and helps provide history including cardiac history and plans Did you review nursing and triage notes (agree or disagree)? Why? @ -I reviewed and agree with nursing and triage notes Were old charts reviewed (outside hosp., previous admission, EMS record, old EKG, old radiological studies, urgent care reports/EKG's, prison records)? Report findings @ -Previous x-ray reviewed Differential Diagnosis (chest pain, altered mental status, abdominal pain women, abdominal pain men, vaginal bleeding, weakness, fever, dyspnea, syncope, headache, dizziness, GI bleed, back pain, seizure, CVA, palpatations, mental health, musculoskeletal)? @ -Differential Dyspnea: Coronary syndrome, arrhythmia, tamponade, asthma, COPD, pulmonary embolism, pneumonia, pneumothorax, pulmonary effusion, anaphylaxis, diabetic ketoacidosis, flailed chest, pulmonary contusion, diaphragmatic rupture, anemia, neuromuscular, this is not meant to be an all-inclusive list. EKG interpreted by me (3pts min.). @ -As above X-rays interpreted by me (1pt min.). @ -Chest x-ray shows some increased fluid concerning for CHF CT interpreted by me (1pt min.). @ -None done U/S interpreted by me (1pt. min.). @ -None done What testing was considered but not performed or refused? (CT, X-rays, U/S, labs)? Why? @ -None What meds were considered but not given or refused? Why? @ -None Did you discuss the management of the patient with other professionals (professionals i.e. , PA, [employer]HER, lab, RT, psych nurse, social media developer, lawyers, teacher, unemployment insurance hearing officer, rn case management)? Give summary @ -Case was discussed with Dr. Amaya who will admit covering Dr. Michele Was smoking cessation discussed for >3mins.? @ -No Was critical care preformed (if so, how long)? @ -No Were there social determinants of health that impacted care today? How? (Homelessness, low income, unemployed, alcoholism, drug addiction, transportation, low edu. Level, literacy, decrease access to med. care, retirement, re hab)? @ -No Was there de-escalation of care discussed even if they declined (Discuss DNR or withdrawal of care, Hospice)? DNR status @ -No What co-morbidities impacted this encounter? (DM, HTN, Smoking, COPD, CAD, Cancer, CVA, ARF, Chemo, Hep., AIDS, mental health diagnosis, sleep apnea, morbid obesity)? @ -History of cardiac disease and CHF Was patient admitted / discharged? Hospital course, mention meds given and route, prescriptions, significant lab abnormalities, going to OR and other per tinent info. @ -Patient presents with symptoms consistent with CHF and history of. Patient has scheduled procedure this week. Patient and family updated on results and plan. Patient reevaluated. Patient will be admitted with cardiac consult. Admission orders written. Undiagnosed new problem with uncertain prognosis? @ -No Drug Therapy requiring intensive monitoring for toxicity (Heparin, Nitro, Insulin, Cardizem)? @ -No Were any procedures done? @ -No Diagnosis/symptom? @ -CHF Acute, or Chronic, or Acute on Chronic? @ -Acute Uncomplicated (without systemic symptoms) or Complicated (systemic symptoms)? @ -Default Side effects of treatment? @ -No Exacerbation, Progression, or Severe Exacerbation? @ -Exacerbation Poses a threat to life or bodily function? How? (Chest pain, [place], [place], pneumonia, PE, COPD, DKA, ARF, appy, cholecystitis, CVA, Diverticulitis, Homicidal, Suicidal, threat to staff... and all critical care pts) @ -No - Lab Data Result diagrams: 02/03/24 10:56 02/03/24 10:56 Lab Results 02/03/24 02/03/24 02/03/24 Range/Units 10:56 10:56 10:56 WBC 7.7 (3.8-10.6) k/uL RBC 3.63 L (4.30-5.90) m/uL Hgb 10.4 L (13.0-17.5) gm/dL Hct 32.6 L (39.0-53.0) % MCV 89.9 (80.0-100.0) fL MCH 28.7 (25.0-35.0) pg MCHC 31.9 (31.0-37.0) g/dL RDW 15.9 H (11.5-15.5) % Plt Count 247 (150-450) k/uL MPV 8.3 Neutrophils % 83 % Lymphocytes % 7 % Monocytes % 7 % Eosinophils % 0 % Basophils % 0 % Neutrophils # 6.4 (1.3-7.7) k/uL Lymphocytes # 0.6 L (1.0-4.8) k/uL Monocytes # 0.5 (0-1.0) k/uL Eosinophils # 0.0 (0-0.7) k/uL Basophils # 0.0 (0-0.2) k/uL Hypochromasia Marked PT 20.0 H (10.0-12.5) sec INR 2.0 H (<1.2) APTT 29.1 (22.0-30.0) sec Sodium 141 (137-145) mmol/L Potassium 4.5 (3.5-5.1) mmol/L Chloride 108 H (98-107) mmol/L Carbon Dioxide 23 (22-30) mmol/L Anion Gap 10 mmol/L BUN 32 H (9-20) mg/dL Creatinine 1.34 H (0.66-1.25) mg/dL Est GFR (CKD-EPI)AfAm 55 (>60 ml/min/1.73 sqM) Est GFR (CKD-EPI)NonAf 48 (>60 ml/min/1.73 sqM) Glucose 161 H (74-99) mg/dL Plasma Lactic Acid Prabhakar (0.7-2.0) mmol/L Calcium 10.0 (8.4-10.2) mg/dL Magnesium 1.7 (1.6-2.3) mg/dL Total Bilirubin 1.4 H (0.2-1.3) mg/dL AST 26 (17-59) U/L ALT 16 (4-49) U/L Alkaline Phosphatase 45 (38-126) U/L Troponin I (0.000-0.034) ng/mL NT-Pro-B Natriuret Pep 65873 pg/mL Total Protein 6.2 L (6.3-8.2) g/dL Albumin 3.9 (3.5-5.0) g/dL 02/03/24 02/03/24 Range/Units 10:56 10:56 WBC (3.8-10.6) k/uL RBC (4.30-5.90) m/uL Hgb (13.0-17.5) gm/dL Hct (39.0-53.0) % MCV (80.0-100.0) fL MCH (25.0-35.0) pg MCHC (31.0-37.0) g/dL RDW (11.5-15.5) % Plt Count (150-450) k/uL MPV Neutrophils % % Lymphocytes % % Monocytes % % Eosinophils % % Basophils % % Neutrophils # (1.3-7.7) k/uL Lymphocytes # (1.0-4.8) k/uL Monocytes # (0-1.0) k/uL Eosinophils # (0-0.7) k/uL Basophils # (0-0.2) k/uL Hypochromasia PT (10.0-12.5) sec INR (<1.2) APTT (22.0-30.0) sec Sodium (137-145) mmol/L Potassium (3.5-5.1) mmol/L Chloride (98-107) mmol/L Carbon Dioxide (22-30) mmol/L Anion Gap mmol/L BUN (9-20) mg/dL Creatinine (0.66-1.25) mg/dL Est GFR (CKD-EPI)AfAm (>60 ml/min/1.73 sqM) Est GFR (CKD-EPI)NonAf (>60 ml/min/1.73 sqM) Glucose (74-99) mg/dL Plasma Lactic Acid Prabhakar 2.0 (0.7-2.0) mmol/L Calcium (8.4-10.2) mg/dL Magnesium (1.6-2.3) mg/dL Total Bilirubin (0.2-1.3) mg/dL AST (17-59) U/L ALT (4-49) U/L Alkaline Phosphatase (38-126) U/L Troponin I 0.018 (0.000-0.034) ng/mL NT-Pro-B Natriuret Pep pg/mL Total Protein (6.3-8.2) g/dL Albumin (3.5-5.0) g/dL Disposition Clinical Impression: Congestive heart failure Disposition: ADMITTED IP TO THIS HOSP Is patient prescribed a controlled substance at d/c from ED?: No Referrals: Nicole Little MD [Primary Care Provider] - 1-2 days Time of Disposition: 13:28
[2024-02-03] MEDS: FUROSEMIDE 10 MG/ML 4 ML VIAL IV STA (11:15)
--- NOTE | 2024-02-03 11:19 | XR ---
EXAMINATION TYPE: XR chest 2V DATE OF EXAM: 02/03/2024 COMPARISON: 01/14/2024 HISTORY: Difficulty breathing TECHNIQUE: Frontal and lateral views of the chest are obtained. FINDINGS: There is mild pulmonary vascular congestion and mild pulmonary edema. There are small bilateral pleur al effusions. The findings are most consistent with CHF. There is no airspace consolidation. There is no pneumothorax. The heart is not enlarged. The osseous structures are intact IMPRESSION: Findings most consistent with mild CHF, significantly less severe than that seen on the prior study of 01/14/2024
[2024-02-03 11:33] LABS: Basophils % (A) 0 %; Eosinophils % (A) 0 %; HCT 32.6 % (39.0-53.0); HGB 10.4 gm/dL (13.0-17.5); Hypochromasia Marked; Lymphocytes # (A) 0.6 k/uL (1.0-4.8); Lymphocytes % (A) 7 %; MCH 28.7 pg (25.0-35.0); MCHC 31.9 g/dL (31.0-37.0); MCV 89.9 fL (80.0-100.0); Mean Platelet Volume 8.3; Monocytes # (A) 0.5 k/uL (0-1.0); Monocytes % (A) 7 %; Neutrophils # (A) 6.4 k/uL (1.3-7.7); Neutrophils % (A) 83 %; Platelet Count 247 k/uL (150-450); RBC 3.63 m/uL (4.30-5.90); RDW 15.9 % (11.5-15.5); WBC 7.7 k/uL (3.8-10.6)
[2024-02-03 11:40] LABS: Partial Thromboplastin Time 29.1 sec (22.0-30.0)
[2024-02-03 12:01] LABS: ALT 16 U/L (4-49); AST 26 U/L (17-59); African American GFR (CKD) 55 (>60 ml/min/1.73 sqM); Albumin 3.9 g/dL (3.5-5.0); Alkaline Phosphatase 45 U/L (38-126); Anion Gap 10 mmol/L; Blood Urea Nitrogen 32 mg/dL (9-20); Carbon Dioxide 23 mmol/L (22-30); Chloride 108 mmol/L (98-107); Glucose 161 mg/dL (74-99); Magnesium 1.7 mg/dL (1.6-2.3); Non-African American GFR(CKD) 48 (>60 ml/min/1.73 sqM); Potassium 4.5 mmol/L (3.5-5.1); Sodium 141 mmol/L (137-145); Total Bilirubin 1.4 mg/dL (0.2-1.3); Total Protein 6.2 g/dL (6.3-8.2)
[2024-02-03 12:07] LABS: NT-Pro-B-Type Natriuretic Pept 13600 pg/mL
[2024-02-03] MEDS: ASPIRIN 325 MG TAB PO STA (15:51)
[2024-02-03] MEDS ORDERED: PANTOPRAZOLE 40 MG TABLET PO PRN (15:59)
[2024-02-03] MEDS: carvediloL 12.5 MG TAB PO SCH (16:51)
[2024-02-03] MEDS: NITROGLYCERIN OINT 1 INCH/GM PACKET TOPICAL SCH (17:15)
[2024-02-03] MEDS: FUROSEMIDE 10 MG/ML 4 ML VIAL IV SCH (22:34)
[2024-02-03] MEDS: PRAVASTATIN SODIUM 80 MG TAB PO SCH (22:35)
[2024-02-04 06:22] LABS: Glucose,Whole Blood 92 mg/dL (70-110)
[2024-02-04] MEDS: glipiZIDE 5 MG TAB PO SCH (06:24)
[2024-02-04] MEDS: metFORMIN 500 MG TAB PO SCH (06:24)
[2024-02-04] MEDS ORDERED: NON FORMULARY DRUG (Omega-3 Fatty Acids/Fish Oil [Fish Oil 1,000 Mg Softgel] 1 EACH Capsul PO SCH (09:00)
[2024-02-04] MEDS ORDERED: ASPIRIN 325 MG TAB PO SCH (09:00)
[2024-02-04] MEDS ORDERED: NON FORMULARY DRUG (Glucosamine/Chondr Su A Sod [Osteo Bi-Flex Caplet] 1 EACH Tablet) PO SCH (09:00)
[2024-02-04] MEDS: FUROSEMIDE 10 MG/ML 4 ML VIAL IV STA (09:48)
[2024-02-04] MEDS: amLODIPine 5 MG TAB PO SCH (09:48)
[2024-02-04 10:16] LABS: INR 1.6 (<1.2); Prothrombin Time 16.2 sec (10.0-12.5)
--- NOTE | 2024-02-04 10:40 | P.CRDCN ---
History of Present Illness History of present illness: HISTORY OF PRESENT ILLNESS: This is a 88-year-old male with a past medical history significant for severe pulmonary hypertension, severe aortic stenosis, hypertension, hyperlipidemia, diabetes, and atrial fibrillation. Patient follows in the office with Dr. Aranda. We have been asked to see the patient in consultation for CHF. Patient examined at the bedside. Patient presented to hospital with a chief complaint of shortness of breath. Patient recently underwent JAMES revealing severe aortic stenosis and is scheduled for cardiac catheterization tomorrow with Dr. Aranda. Patient was found to be in mild CHF and was started on IV diuretics. Patient currently denies any chest pain or pressure. Vital signs are stable. Patient's INR on admission was 2.0. His Coumadin has been placed on hold. DIAGNOSTICS: - EKG reveals atrial fibrillation with controlled ventricular rate. - Chest xray findings consistent with mild CHF - Current home cardiac medications include amlodipine 5 mg daily, carvedilol 25 mg twice a day, pravastatin 80 mg at night, Lasix 40 mg daily, and warfarin 2.5 mg daily - Most recent echocardiogram obtained on 01/15/2024 revealed ejection fraction 55 to 60%, severe pulmonary hypertension, moderate to severe aortic stenosis, mild to moderate MR -Patient underwent JAMES on 01/31/2024 revealing severe aortic stenosis involving heavily calcified tricuspid aortic valve. Normal left ventricular systolic function REVIEW OF SYSTEMS: At the time of my exam: CONSTITUTIONAL: Denies fever or chills. HEENT: Denies blurred vision, vision changes, or eye pain. Denies hemoptysis CARDIOVASCULAR: Denies chest pain. Denies orthopnea. Denies PND. Denies palpitations RESPIRATORY: Denies shortness of breath. GASTROINTESTINAL: Denies abdominal pain. Denies nausea or vomiting. HEMATOLOGIC: Denies bleeding disorders. GENITOURINARY: Denies any blood in urine. SKIN: Denies pruitis. Denies rash. PHYSICAL EXAM: VITAL SIGNS: Reviewed. GENERAL: Well-developed in no acute distress. HEENT: Head is normocephalic. Pupils are equal, round. Sclerae anicteric. Mucous membranes of the mouth are moist. Neck supple. No JVD or thyromegaly LUNGS: Respirations even and unlabored. Lungs essentially clear to auscultation bilaterally. HEART: Irregular rate and rhythm. S1 and S2 heard. Systolic murmur noted ABDOMEN: Soft. Nondistended. Nontender. EXTREMITIES: Normal range of motion. No clubbing or cyanosis. Peripheral pulses intact. Trace bilateral lower extremity edema NEUROLOGIC: Awake and alert. Oriented x 3. ASSESSMENT: Shortness of breath Acute on chronic heart failure with preserved EF Permanent atrial fibrillation Severe aortic stenosis Severe pulm hypertension Hypertension Hyperlipidemia Diabetes PLAN: Patient to receive IV Lasix this morning. Then will transition to oral Lasix 40 mg daily Continue to monitor kidney function. Repeat in a.m. Hold Coumadin. Monitor INR N.p.o. at midnight Patient to undergo cardiac catheterization tomorrow with Dr. Aranda Further recommendations pending patient course Nurse practitioner note has been reviewed by physician. Signing provider agrees with the documented findings, assessment, and plan of care documented by SAP ARCHITECT as a scribe. Past Medical History Past Medical History: Atrial Fibrillation, Heart Failure, Diabetes Mellitus, Hyperlipidemia, Hypertension, Myocardial Infarction ([place]) Additional Past Medical History / Comment(s): Recent hospitalization for SOB, states had [place](01/14/24). Last Myocardial Infarction Date:: 01/14/24 History of Any Multi-Drug Resistant Organisms: None Reported Past Surgical History: Joint Replacement, Prostate Surgery Additional Past Surgical History / Comment(s): Right hip replacement, cataract surgery. Past Anesthesia/Blood Transfusion Reactions: No Reported Reaction Past Psychological History: No Psychological Hx Reported Smoking Status: Former smoker Past Alcohol Use History: Occasional Additional Past Alcohol Use History / Comment(s): Smoked cigars occasionally, never smoked cigarettes, quit over 30 yrs ago. Past Drug Use History: None Reported - Past Family History Mother Family Medical History: No Reported History Medications and Allergies Home Medications Medication Instructions Recorded Confirmed Type Furosemide [Lasix] 40 mg PO DAILY 05/11/18 02/03/24 History [place]-3 Fatty Acids/Fish Oil [Fish 1 cap PO DAILY 05/11/18 02/03/24 History Oil 1,000 mg Softgel] Omeprazole 20 mg PO DAILY PRN 05/11/18 02/03/24 History Pravastatin Sodium [Pravachol] 80 mg PO HS 05/11/18 02/03/24 History Warfarin Sodium [Coumadin] 2.5 mg PO DIRECTED 05/11/18 02/03/24 History glipiZIDE XL [Glucotrol XL] 10 mg PO DAILY 05/11/18 02/03/24 History metFORMIN HCL [Glucophage] 1,000 mg PO DAILY 05/11/18 02/03/24 History Glucosamine/Chondr [place]on A Sod [Osteo 1 tab PO DAILY 01/14/24 02/03/24 History Bi-Flex Caplet] amLODIPine [Norvasc] 5 mg PO DAILY 30 Days #30 tab 01/17/24 02/03/24 Rx carvediloL [Coreg*] 25 mg PO BID-W/MEALS 30 Days #60 01/17/24 02/03/24 Rx tab Allergies Allergy/AdvReac Type Severity Reaction Status Date / Time No Known Allergies Allergy Verified 02/03/24 14:04 Physical Exam Vitals: Vital Signs Temp Pulse Pulse Resp BP BP Pulse Ox 02/04/24 10:05 94 L 02/04/24 07:15 97.5 F L 88 15 105/48 93 L 02/04/24 02:00 98.3 F 87 16 128/71 94 L 02/03/24 22:00 97.9 F 92 18 131/64 94 L 02/03/24 20:45 97.4 F L 85 22 112/70 92 L 02/03/24 17:20 70 18 147/74 97 02/03/24 15:49 84 18 141/84 95 Intake and Output 02/03/24 02/04/24 02/04/24 22:59 06:59 14:59 Intake Total 540 118 Output Total 1775 Balance -1235 118 Intake: Oral 540 118 Output: Urine 1775 Other: Voiding Method Toilet Urinal Weight 82.554 kg 81.4 kg Results 02/03/24 10:56 02/03/24 10:56 Cardiac Enzymes 02/03/24 02/03/24 Range/Units 10:56 10:56 AST 26 (17-59) U/L Troponin I 0.018 (0.000-0.034) ng/mL Coagulation 02/03/24 02/04/24 Range/Units 10:56 09:40 PT 20.0 H 16.2 H (10.0-12.5) sec APTT 29.1 (22.0-30.0) sec CBC 02/03/24 Range/Units 10:56 WBC 7.7 (3.8-10.6) k/uL RBC 3.63 L (4.30-5.90) m/uL Hgb 10.4 L (13.0-17.5) gm/dL Hct 32.6 L (39.0-53.0) % Plt Count 247 (150-450) k/uL Comprehensive Metabolic Panel 02/03/24 Range/Units 10:56 Sodium 141 (137-145) mmol/L Potassium 4.5 (3.5-5.1) mmol/L Chloride 108 H (98-107) mmol/L Carbon Dioxide 23 (22-30) mmol/L BUN 32 H (9-20) mg/dL Creatinine 1.34 H (0.66-1.25) mg/dL Glucose 161 H (74-99) mg/dL Calcium 10.0 (8.4-10.2) mg/dL AST 26 (17-59) U/L ALT 16 (4-49) U/L Alkaline Phosphatase 45 (38-126) U/L Total Protein 6.2 L (6.3-8.2) g/dL Albumin 3.9 (3.5-5.0) g/dL Current Medications Generic Name Dose Route Start Last Admin Trade Name Freq PRN Reason Stop Dose Admin Amlodipine Besylate 5 mg 02/04/24 09:00 02/04/24 09:48 Amlodipine 5 Mg Tab PO 5 mg DAILY SELIN Administration Carvedilol 25 mg 02/03/24 17:30 02/04/24 06:24 Carvedilol 12.5 Mg Tab PO 25 mg BID-W/MEALS SELIN Administration Furosemide 40 mg 02/05/24 09:00 Furosemide 40 Mg Tab PO DAILY SELIN Glipizide 5 mg 02/04/24 07:30 02/04/24 06:24 Glipizide 5 Mg Tab PO 5 mg AC-BID SELIN Administration Metformin HCl 1,000 mg 02/04/24 07:30 02/04/24 06:24 Metformin 500 Mg Tab PO 1,000 mg [id number] SELIN Administration Pantoprazole Sodium 40 mg 02/03/24 15:59 Pantoprazole 40 Mg Tablet PO DAILY PRN acid reflux Pravastatin Sodium 80 mg 02/03/24 21:00 02/03/24 22:35 Pravastatin Sodium 80 Mg Tab PO 80 mg HS SELIN Administration Intake and Output 02/03/24 02/04/24 02/04/24 22:59 06:59 14:59 Intake Total 540 118 Output Total 1775 Balance -1235 118 Intake: Oral 540 118 Output: Urine 1775 Other: Voiding Method Toilet Urinal Weight 82.554 kg 81.4 kg 02/03/24 10:56 02/03/24 10:56
[2024-02-04 12:01] LABS: African American GFR (CKD) 55 (>60 ml/min/1.73 sqM); Anion Gap 8 mmol/L; Blood Urea Nitrogen 33 mg/dL (9-20); Calcium 9.2 mg/dL (8.4-10.2); Carbon Dioxide 25 mmol/L (22-30); Chloride 107 mmol/L (98-107); Glucose 147 mg/dL (74-99); Non-African American GFR(CKD) 48 (>60 ml/min/1.73 sqM); Potassium 3.5 mmol/L (3.5-5.1); Sodium 140 mmol/L (137-145)
[2024-02-04 12:08] LABS: Glucose,Whole Blood 148 mg/dL (70-110)
[2024-02-04] MEDS ORDERED: ALPRAZolam 0.25 MG TAB PO PRN (14:11)
[2024-02-04] MEDS ORDERED: NITROGLYCERIN SL TABS 0.4 MG TAB SUBLINGUAL PRN (14:11)
[2024-02-04] MEDS ORDERED: ALPRAZolam 0.5 MG TAB PO PRN (14:11)
--- NOTE | 2024-02-04 15:19 | P.HPIM ---
History of Present Illness H&P Date: 02/04/24 Javon Chavira, is an 88-year-old male who presented to [facility] emergency room with a chief complaint of worsening shortness of breath, patient stated that his symptoms started 4 days ago and has been worsening, patient was recently admitted to [facility] with similar symptoms, he is followed by cardiology and had a cardiac catheterization scheduled for next week with Dr. Gilbert. He was evaluated in the emergency room vital examination on presentation revealed a temperature of 97.8 pulse 82 respiration 18 blood pressure 134/65 pulse ox 97% on room air Laboratory data reveals a white blood count of 7.7 hemoglobin 10.4 platelet count 247 INR 2.0 BUN 32 creatinine 1.34 Testing in the emergency room revealed Patient was admitted to medical floor for further evaluation and treatment Past Medical History Past Medical History: Atrial Fibrillation, Heart Failure, Diabetes Mellitus, Hyperlipidemia, Hypertension, Myocardial Infarction (ND) Additional Past Medical History / Comment(s): Recent hospitalization for SOB, states had ND(01/14/24). Last Myocardial Infarction Date:: 01/14/24 History of Any Multi-Drug Resistant Organisms: None Reported Past Surgical History: Joint Replacement, Prostate Surgery Additional Past Surgical History / Comment(s): Right hip replacement, cataract surgery. Past Anesthesia/Blood Transfusion Reactions: No Reported Reaction Past Psychological History: No Psychological Hx Reported Smoking Status: Former smoker Past Alcohol Use History: Occasional Additional Past Alcohol Use History / Comment(s): Smoked cigars occasionally, never smoked cigarettes, quit over 30 yrs ago. Past Drug Use History: None Reported - Past Family History Mother Family Medical History: No Reported History Medications and Allergies Home Medications Medication Instructions Recorded Confirmed Type Furosemide [Lasix] 40 mg PO DAILY 05/11/18 02/03/24 History Leicester-3 Fatty Acids/Fish Oil [Fish 1 cap PO DAILY 05/11/18 02/03/24 History Oil 1,000 mg Softgel] Omeprazole 20 mg PO DAILY PRN 05/11/18 02/03/24 History Pravastatin Sodium [Pravachol] 80 mg PO HS 05/11/18 02/03/24 History Warfarin Sodium [Coumadin] 2.5 mg PO DIRECTED 05/11/18 02/03/24 History glipiZIDE XL [Glucotrol XL] 10 mg PO DAILY 05/11/18 02/03/24 History metFORMIN HCL [Glucophage] 1,000 mg PO DAILY 05/11/18 02/03/24 History Glucosamine/Chondr Harmon A Sod [Osteo 1 tab PO DAILY 01/14/24 02/03/24 History Bi-Flex Caplet] amLODIPine [Norvasc] 5 mg PO DAILY 30 Days #30 tab 01/17/24 02/03/24 Rx carvediloL [Coreg*] 25 mg PO BID-W/MEALS 30 Days #60 01/17/24 02/03/24 Rx tab Allergies Allergy/AdvReac Type Severity Reaction Status Date / Time No Known Allergies Allergy Verified 02/03/24 14:04 Physical Exam Vitals: Vital Signs Temp Pulse Pulse Resp BP BP Pulse Ox 02/04/24 10:05 94 L 02/04/24 07:15 97.5 F L 88 15 105/48 93 L 02/04/24 02:00 98.3 F 87 16 128/71 94 L 02/03/24 22:00 97.9 F 92 18 131/64 94 L 02/03/24 20:45 97.4 F L 85 22 112/70 92 L 02/03/24 17:20 70 18 147/74 97 02/03/24 15:49 84 18 141/84 95 Intake and Output 02/03/24 02/04/24 02/04/24 22:59 06:59 14:59 Intake Total 540 118 Output Total 1775 Balance -1235 118 Intake: Oral 540 118 Output: Urine 1775 Other: Voiding Method Toilet Urinal Weight 82.554 kg 81.4 kg In general patient is alert and oriented x 3 in no distress HEENT head normocephalic and atraumatic Neck is supple no JVD no goiter no lymphadenopathy no carotid bruit Chest examination is clear to auscultation no crackles no wheezing Cardiac exam reveals regular heart sounds S1 and S2 no gallops no murmurs Abdomen is soft nontender no organomegaly with normal bowel sounds Extremity exam reveals no edema no cyanosis or clubbing Neurological examination reveals no gross focal deficits Results CBC & Chem 7: 02/03/24 10:56 02/04/24 09:40 Labs: Abnormal Lab Results - Last 24 Hours (Table) 02/03/24 02/03/24 02/03/24 Range/Units 10:56 10:56 10:56 RBC 3.63 L (4.30-5.90) m/uL Hgb 10.4 L (13.0-17.5) gm/dL Hct 32.6 L (39.0-53.0) % RDW 15.9 H (11.5-15.5) % Lymphocytes # 0.6 L (1.0-4.8) k/uL PT 20.0 H (10.0-12.5) sec INR 2.0 H (<1.2) Chloride 108 H (98-107) mmol/L BUN 32 H (9-20) mg/dL Creatinine 1.34 H (0.66-1.25) mg/dL Glucose 161 H (74-99) mg/dL Total Bilirubin 1.4 H (0.2-1.3) mg/dL Total Protein 6.2 L (6.3-8.2) g/dL Thrombosis Risk Factor Assmnt - Choose All That Apply Any of the Below Risk Factors Present?: Yes Each Factor Represents 1 point: Obesity (BMI >25) Other Risk Factors: Yes Each Risk Factor Represents 3 Points: Age 75 years or older Other congenital or acquired thrombophilia - If yes, enter type in comment: No Thrombosis Risk Factor Assessment Total Risk Factor Score: 4 Thrombosis Risk Factor Assessment Level: Moderate Risk Assessment and Plan Plan: Acute exacerbation of diastolic congestive heart failure Underlying history of atrial fibrillation Underlying history of valvular heart disease with severe aortic stenosis and severe pulmonary hypertension Underlying history of hypertension Underlying history of hyperlipidemia Underlying history of diabetes mellitus At this time patient was admitted to telemetry floor He was started on IV Lasix Home medications reviewed and reordered Cardiology consultation was requested Will follow closely
[2024-02-04 17:14] LABS: Glucose,Whole Blood 126 mg/dL (70-110)
[2024-02-04 20:33] LABS: Glucose,Whole Blood 115 mg/dL (70-110)
[2024-02-05] MEDS: SODIUM CHLORIDE 0.9% 1,000 ML in EMPTY BAG 1 BAG IV SCH (03:17)
[2024-02-05] MEDS: ASPIRIN 325 MG TAB PO ONE (05:12)
[2024-02-05] MEDS: ATORVASTATIN 80 MG TAB PO ONE (05:12)
[2024-02-05 07:00] LABS: Glucose,Whole Blood 150 mg/dL (70-110)
[2024-02-05] MEDS ORDERED: HEPARIN SODIUM,PORCINE (1 ML) 2,500 UNIT in SODIUM CHLORIDE 0.9% 250 ML IRRIGATION PRN (07:00)
[2024-02-05] MEDS ORDERED: HEPARIN SODIUM,PORCINE 10,000 UNIT in SODIUM CHLORIDE 0.9% 1,000 ML IRRIGATION PRN (07:00)
[2024-02-05 08:48] LABS: Basophils # (A) 0.03 X 10*3/uL (0.00-0.10); Basophils % (A) 0.5 %; Eosinophils # (A) 0.13 X 10*3/uL (0.04-0.35); Eosinophils % (A) 2.2 %; HCT 28.8 % (39.6-50.0); Lymphocytes # (A) 0.81 X 10*3/uL (0.90-5.00); Lymphocytes % (A) 13.9 %; MCHC 31.3 g/dL (32.0-37.0); MCV 89.7 FL (80.0-97.0); Mean Platelet Volume 11.1 FL (9.5-12.2); Monocytes # (A) 0.75 X 10*3/uL (0.20-1.00); Monocytes % (A) 12.8 %; NRBC Per 100 WBC 0 X 10*3/uL (0.00-0.01); Neutrophils # (A) 4.11 X 10*3/uL (1.80-7.70); Neutrophils % (A) 70.4 %; Platelet Count 221 X 10*3/uL (140-440); RBC 3.21 X 10*6/uL (4.40-5.60); RDW 16.5 % (11.5-14.5); WBC 5.84 X 10*3/uL (4.50-10.00)
[2024-02-05 08:59] LABS: ALT 16 U/L (10-49); AST 22 U/L (14-35); Albumin 3.5 g/dL (3.8-4.9); Albumin/Globulin Ratio 2.06 Ratio (1.60-3.17); Alkaline Phosphatase 45 U/L (41-126); BUN/Creat Ratio 20.67 Ratio (12.00-20.00); Calcium 8.6 mg/dL (8.7-10.3); Carbon Dioxide 23.9 mmol/L (21.6-31.8); Chloride 107 mmol/L (96-109); Globulin 1.7 g/dL (1.6-3.3); Glucose 126 mg/dL (70-110); INR 1.4 sec (0.93-1.11); Potassium 3.4 mmol/L (3.5-5.5); Prothrombin Time 14.8 sec (9.9-11.9); Sodium 143 mmol/L (135-145); Total Bilirubin 0.3 mg/dL (0.3-1.2); Total Protein 5.2 g/dL (6.2-8.2)
--- NOTE | 2024-02-05 10:31 | P.PN ---
Subjective Progress Note Date: 02/05/24 Javon Chavira, is an 88-year-old male who presented to [facility] emergency room with a chief complaint of worsening shortness of breath, patient stated that his symptoms started 4 days ago and has been worsening, patient was recently admitted to [facility] with similar symptoms, he is followed by cardiology and had a cardiac catheterization scheduled for next week with Dr. Gilbert. He was evaluated in the emergency room vital examination on presentation revealed a temperature of 97.8 pulse 82 respiration 18 blood pressure 134/65 pulse ox 97% on room air Laboratory data reveals a white blood count of 7.7 hemoglobin 10.4 platelet count 247 INR 2.0 BUN 32 creatinine 1.34 Testing in the emergency room revealed Patient was admitted to medical floor for further evaluation and treatment On 02/05/2024 patient is alert and oriented 3. Patient to go down for cardiac catheterization this a.m. At this time patient denies chest pain or shortness breath. Patient denies nausea vomiting or diarrhea. Patient denies any urinary burning or frequency. Current vital signs temp 98.8, heart rate 81, respiratory rate 16, blood pressure 127/61 with pulse ox 97% on room air Objective - Vital Signs Vital signs: Vital Signs Temp 98.8 F 02/05/24 06:55 Pulse 81 02/05/24 06:55 Resp 16 02/05/24 06:55 BP 165/77 02/05/24 06:55 Pulse Ox 97 02/05/24 08:53 FiO2 Intake & Output 02/04/24 02/05/24 02/05/24 18:59 06:59 18:59 Intake Total 354 Output Total 800 400 200 Balance -446 -400 -200 Weight 81.4 kg 80.7 kg Intake: Oral 354 Output: Urine 800 400 200 Other: Voiding Method Urinal Urinal - Exam In general patient is alert and oriented x 3 in no distress HEENT head normocephalic and atraumatic Neck is supple no JVD no goiter no lymphadenopathy no carotid bruit Chest examination is clear to auscultation no crackles no wheezing Cardiac exam reveals regular heart sounds S1 and S2 no gallops no murmurs Abdomen is soft nontender no organomegaly with normal bowel sounds Extremity exam reveals no edema no cyanosis or clubbing Neurological examination reveals no gross focal deficits - Labs CBC & Chem 7: 02/05/24 03:18 02/05/24 03:18 Labs: Abnormal Lab Results - Last 24 Hours (Table) 02/04/24 02/04/24 02/04/24 Range/Units 09:40 09:40 12:07 RBC (4.40-5.60) X 10*6/uL Hgb (13.0-17.0) g/dL Hct (39.6-50.0) % MCHC (32.0-37.0) g/dL RDW (11.5-14.5) % Lymphocytes # (0.90-5.00) X 10*3/uL PT 16.2 H (10.0-12.5) sec INR 1.6 H (<1.2) Potassium (3.5-5.5) mmol/L Anion Gap (4.00-12.00) mmol/L BUN 33 H (9-20) mg/dL Creatinine 1.34 H (0.66-1.25) mg/dL Est GFR (CKD-EPI) (>=60) BUN/Creatinine Ratio (12.00-20.00) Ratio Glucose 147 H (74-99) mg/dL POC Glucose (mg/dL) 148 H (70-110) mg/dL Calcium (8.7-10.3) mg/dL Total Protein (6.2-8.2) g/dL Albumin (3.8-4.9) g/dL 02/04/24 02/04/24 02/05/24 Range/Units 17:13 20:32 03:18 RBC (4.40-5.60) X 10*6/uL Hgb (13.0-17.0) g/dL Hct (39.6-50.0) % MCHC (32.0-37.0) g/dL RDW (11.5-14.5) % Lymphocytes # (0.90-5.00) X 10*3/uL PT (10.0-12.5) sec INR (<1.2) Potassium 3.4 L (3.5-5.5) mmol/L Anion Gap 12.10 H (4.00-12.00) mmol/L BUN 31.0 H (9-20) mg/dL Creatinine (0.66-1.25) mg/dL Est GFR (CKD-EPI) 45 L (>=60) BUN/Creatinine Ratio 20.67 H (12.00-20.00) Ratio Glucose 126 H (74-99) mg/dL POC Glucose (mg/dL) 126 H 115 H (70-110) mg/dL Calcium 8.6 L (8.7-10.3) mg/dL Total Protein 5.2 L (6.2-8.2) g/dL Albumin 3.5 L (3.8-4.9) g/dL 02/05/24 02/05/24 02/05/24 Range/Units 03:18 03:18 06:58 RBC 3.21 L (4.40-5.60) X 10*6/uL Hgb 9.0 L (13.0-17.0) g/dL Hct 28.8 L (39.6-50.0) % MCHC 31.3 L (32.0-37.0) g/dL RDW 16.5 H (11.5-14.5) % Lymphocytes # 0.81 L (0.90-5.00) X 10*3/uL PT 14.8 H (10.0-12.5) sec INR 1.40 H (<1.2) Potassium (3.5-5.5) mmol/L Anion Gap (4.00-12.00) mmol/L BUN (9-20) mg/dL Creatinine (0.66-1.25) mg/dL Est GFR (CKD-EPI) (>=60) BUN/Creatinine Ratio (12.00-20.00) Ratio Glucose (74-99) mg/dL POC Glucose (mg/dL) 150 H (70-110) mg/dL Calcium (8.7-10.3) mg/dL Total Protein (6.2-8.2) g/dL Albumin (3.8-4.9) g/dL Assessment and Plan Plan: Acute exacerbation of diastolic congestive heart failure Underlying history of atrial fibrillation Underlying history of valvular heart disease with severe aortic stenosis and severe pulmonary hypertension Underlying history of hypertension Underlying history of hyperlipidemia Underlying history of diabetes mellitus At this time patient was admitted to telemetry floor He was started on IV Lasix Home medications reviewed and reordered Cardiology consultation was requested cardiac catheterization today 02/05/2020 Will follow closely
[2024-02-05] MEDS: HEPARIN SODIUM,PORCINE 10,000 UNIT in SODIUM CHLORIDE 0.9% 1,000 ML IRRIGATION ONE (10:47)
[2024-02-05] MEDS: SODIUM CHLORIDE 0.9% 1,000 ML IV ONE (10:47)
[2024-02-05] MEDS: fentaNYL (PF) 50 MCG/ML 2 ML AMP IVP ONE (10:50)
[2024-02-05] MEDS: MIDAZOLAM 2 MG/2 ML VIAL IVP ONE (10:50)
[2024-02-05] MEDS: LIDOCAINE 1% INJ 10MG/ML (20 ML MDV) SQ ONE (10:52)
[2024-02-05] MEDS: HEPARIN SODIUM,PORCINE (1 ML) 2,500 UNIT in SODIUM CHLORIDE 0.9% 250 ML IRRIGATION ONE (11:25)
[2024-02-05] MEDS: IOPAMIDOL-370 100ML BTL INJ ONE (11:26)
[2024-02-05] MEDS ORDERED: RX INFO: IV CONTRAST WAS GIVEN 1 EACH MISC MISCELLANE PRN (11:30)
[2024-02-05] MEDS: SODIUM CHLORIDE 0.9% 1,000 ML IV SCH (11:50)
[2024-02-05 12:04] LABS: Glucose,Whole Blood 136 mg/dL (70-110)
--- NOTE | 2024-02-05 12:12 | CC ---
CARDIAC CATHETERIZATION REPORT INDICATION: Aortic stenosis. PROCEDURE NOTE: After obtaining informed consent, left heart catheterization and coronary angiogram were performed via the right femoral artery using standard Sina catheters. The patient tolerated the procedure well without any obvious immediate complications. His femoral arteries are heavily calcified. Hence, we opted for manual hemostasis. I initially attempted right radial artery access while we had brisk flow through the access needle. Because of radial artery spasm, we were not able to pass a wire into the radial artery. Hence, I decided to proceed with the femoral catheterization. FINDINGS: 1. Hemodynamics: Central aortic pressure 130/70 mm. 2. Left ventriculogram: Left ventriculogram is not performed. 3. Angiographic Data: a.Right coronary artery: Right coronary artery is a large dominant vessel that shows mild nonobstructive CAD. b.Left main coronary artery: Left main coronary artery appears calcified, but is free of significant stenosis. Divides into left anterior descending coronary artery and circumflex coronary artery. c. LAD and its branches are free of significant stenosis. d.Circumflex coronary artery has a focal 70% to 80% stenosis as it bifurcates into second OM and an AV groove circ. CONCLUSION: Severe 1-vessel coronary artery disease. PLAN: I reviewed angiographic data with Dr. Campos, the on-call surgical instrument repair specialist, who will proceed with angioplasty of circumflex coronary artery. The plan is to do this tomorrow as the patient has renal insufficiency. I will also check a CBC on him and make sure that there is no further worsening of his anemia. We are going to ask his primary care physician to investigate the anemia further as the hemoglobin is around 9. We will hold the Coumadin today. MMODL / IJN: [id number] /
[2024-02-05] MEDS ORDERED: NITROGLYCERIN SL TABS 0.4 MG TAB SUBLINGUAL PRN (13:08)
[2024-02-05] MEDS ORDERED: ALPRAZolam 0.5 MG TAB PO PRN (13:08)
[2024-02-05] MEDS ORDERED: Potassium Replacement Protocol 1 EACH MISC MISCELLANE PRN (13:52)
[2024-02-05] MEDS: FUROSEMIDE 40 MG TAB PO SCH (14:04)
[2024-02-05] MEDS: POTASSIUM CHLORIDE ER 20 MEQ TAB.ER PO SCH (14:04)
[2024-02-05 16:55] LABS: Glucose,Whole Blood 144 mg/dL (70-110)
[2024-02-05 20:15] LABS: Glucose,Whole Blood 190 mg/dL (70-110)
[2024-02-05 21:47] LABS: % Iron Saturation 5.08 (15.00-50.00)
[2024-02-06] MEDS: ATORVASTATIN 80 MG TAB PO ONE (05:07)
[2024-02-06] MEDS: ASPIRIN 325 MG TAB PO ONE (05:08)
[2024-02-06 05:38] LABS: INR 1.2 (<1.2)
[2024-02-06 05:52] LABS: Glucose,Whole Blood 186 mg/dL (70-110)
[2024-02-06] MEDS: SODIUM CHLORIDE 0.9% 1,000 ML in EMPTY BAG 1 BAG IV SCH (06:02)
[2024-02-06] MEDS ORDERED: HEPARIN SODIUM,PORCINE 10,000 UNIT in SODIUM CHLORIDE 0.9% 1,000 ML IRRIGATION PRN (07:00)
[2024-02-06] MEDS ORDERED: HEPARIN SODIUM,PORCINE (1 ML) 2,500 UNIT in SODIUM CHLORIDE 0.9% 250 ML IRRIGATION PRN (07:00)
[2024-02-06 08:36] LABS: Basophils # (A) 0.03 X 10*3/uL (0.00-0.10); Basophils % (A) 0.5 %; Eosinophils # (A) 0.17 X 10*3/uL (0.04-0.35); Eosinophils % (A) 2.8 %; HGB 9.1 g/dL (13.0-17.0); Lymphocytes # (A) 0.72 X 10*3/uL (0.90-5.00); MCHC 30.3 g/dL (32.0-37.0); MCV 92.3 FL (80.0-97.0); Mean Platelet Volume 11.2 FL (9.5-12.2); Monocytes # (A) 0.57 X 10*3/uL (0.20-1.00); Monocytes % (A) 9.5 %; NRBC Per 100 WBC 0 X 10*3/uL (0.00-0.01); Neutrophils # (A) 4.48 X 10*3/uL (1.80-7.70); Neutrophils % (A) 74.9 %; Platelet Count 224 X 10*3/uL (140-440); RBC 3.25 X 10*6/uL (4.40-5.60); RDW 16.3 % (11.5-14.5); WBC 5.99 X 10*3/uL (4.50-10.00)
[2024-02-06 08:57] LABS: BUN/Creat Ratio 20.15 Ratio (12.00-20.00); Blood Urea Nitrogen 26.2 mg/dL (9.0-27.0); Carbon Dioxide 23.4 mmol/L (21.6-31.8); Chloride 109 mmol/L (96-109); Glucose 136 mg/dL (70-110); Potassium 3.9 mmol/L (3.5-5.5); Sodium 143 mmol/L (135-145)
[2024-02-06 08:58] LABS: ALT 14 U/L (10-49); AST 24 U/L (14-35); Albumin 3.5 g/dL (3.8-4.9); Albumin/Globulin Ratio 2.06 Ratio (1.60-3.17); Alkaline Phosphatase 44 U/L (41-126); Calcium 8.4 mg/dL (8.7-10.3); Globulin 1.7 g/dL (1.6-3.3); Total Bilirubin 0.4 mg/dL (0.3-1.2); Total Protein 5.2 g/dL (6.2-8.2)
[2024-02-06] MEDS: IV FLUID CONTINUATION 800 ML IV ONE (10:43)
[2024-02-06] MEDS: CLOPIDOGREL 75 MG TAB PO ONE (10:53)
[2024-02-06] MEDS: fentaNYL (PF) 50 MCG/ML 2 ML AMP IVP ONE (10:59)
[2024-02-06] MEDS: MIDAZOLAM 2 MG/2 ML VIAL IVP ONE (10:59)
[2024-02-06] MEDS: LIDOCAINE 1% INJ 10MG/ML (20 ML MDV) SQ ONE (11:03)
[2024-02-06] MEDS: VERAPAMIL SYRINGE (5 MG/10 ML) INTRAARTER ONE (11:04)
--- NOTE | 2024-02-06 11:07 | P.PN ---
Subjective Progress Note Date: 02/06/24 Javon Chavira, is an 88-year-old male who presented to [facility] emergency room with a chief complaint of worsening shortness of breath, patient stated that his symptoms started 4 days ago and has been worsening, patient was recently admitted to [facility] with similar symptoms, he is followed by cardiology and had a cardiac catheterization scheduled for next week with Dr. Gilbert. He was evaluated in the emergency room vital examination on presentation revealed a temperature of 97.8 pulse 82 respiration 18 blood pressure 134/65 pulse ox 97% on room air Laboratory data reveals a white blood count of 7.7 hemoglobin 10.4 platelet count 247 INR 2.0 BUN 32 creatinine 1.34 Testing in the emergency room revealed Patient was admitted to medical floor for further evaluation and treatment On 02/05/2024 patient is alert and oriented 3. Patient to go down for cardiac catheterization this a.m. At this time patient denies chest pain or shortness breath. Patient denies nausea vomiting or diarrhea. Patient denies any urinary burning or frequency. Current vital signs temp 98.8, heart rate 81, respiratory rate 16, blood pressure 127/61 with pulse ox 97% on room air On 02/05/2025 for patient's alert and oriented 3.patient underwent cardiac catheterization yesterday which showed severe one-vessel coronary artery disease of the circumflex. Plans today for angioplasty. Patient also having low hemoglobin of 9.0. GI service is consulted. Creatinine 1.3 bun 26.2. Current vital signs temp 97.8, heart rate 70, respiratory rate 17, blood pressure 128/69 with pulse ox 96 on room air. Patient denies chest pain or shortness breath. Patient denies nausea vomiting or diarrhea. Patient denies any urinary burning or frequency Objective - Vital Signs Vital signs: Vital Signs Temp 97.8 F 02/06/24 07:00 Pulse 70 02/06/24 07:00 Resp 17 02/06/24 07:00 BP 128/69 02/06/24 07:00 Pulse Ox 96 02/06/24 07:00 FiO2 Intake & Output 02/05/24 02/06/24 02/06/24 18:59 06:59 18:59 Intake Total 218 0 Output Total 400 Balance -182 0 Weight 80.5 kg Intake: IV 100 Oral 118 0 Output: Urine 400 Other: Voiding Method Urinal Urinal Urinal - Exam In general patient is alert and oriented x 3 in no distress HEENT head normocephalic and atraumatic Neck is supple no JVD no goiter no lymphadenopathy no carotid bruit Chest examination is clear to auscultation no crackles no wheezing Cardiac exam reveals regular heart sounds S1 and S2 no gallops no murmurs Abdomen is soft nontender no organomegaly with normal bowel sounds Extremity exam reveals no edema no cyanosis or clubbing Neurological examination reveals no gross focal deficits - Labs CBC & Chem 7: 02/06/24 04:51 02/06/24 04:51 Labs: Abnormal Lab Results - Last 24 Hours (Table) 02/05/24 02/05/24 02/05/24 Range/Units 03:18 12:03 16:50 RBC (4.40-5.60) X 10*6/uL Hgb (13.0-17.0) g/dL Hct (39.6-50.0) % MCHC (32.0-37.0) g/dL RDW (11.5-14.5) % Lymphocytes # (0.90-5.00) X 10*3/uL PT (10.0-12.5) sec INR (<1.2) Est GFR (CKD-EPI) (>=60) BUN/Creatinine Ratio (12.00-20.00) Ratio Glucose (70-110) mg/dL POC Glucose (mg/dL) 136 H 144 H (70-110) mg/dL Calcium (8.7-10.3) mg/dL Iron 16 L (65-175) UG/DL % Saturation 5.08 L (15.00-50.00) Total Protein (6.2-8.2) g/dL Albumin (3.8-4.9) g/dL 02/05/24 02/06/24 02/06/24 Range/Units 20:13 04:51 04:51 RBC 3.25 L (4.40-5.60) X 10*6/uL Hgb 9.1 L (13.0-17.0) g/dL Hct 30.0 L (39.6-50.0) % MCHC 30.3 L (32.0-37.0) g/dL RDW 16.3 H (11.5-14.5) % Lymphocytes # 0.72 L (0.90-5.00) X 10*3/uL PT (10.0-12.5) sec INR (<1.2) Est GFR (CKD-EPI) 53 L (>=60) BUN/Creatinine Ratio 20.15 H (12.00-20.00) Ratio Glucose 136 H (70-110) mg/dL POC Glucose (mg/dL) 190 H (70-110) mg/dL Calcium 8.4 L (8.7-10.3) mg/dL Iron (65-175) UG/DL % Saturation (15.00-50.00) Total Protein 5.2 L (6.2-8.2) g/dL Albumin 3.5 L (3.8-4.9) g/dL 02/06/24 02/06/24 Range/Units 04:51 05:51 RBC (4.40-5.60) X 10*6/uL Hgb (13.0-17.0) g/dL Hct (39.6-50.0) % MCHC (32.0-37.0) g/dL RDW (11.5-14.5) % Lymphocytes # (0.90-5.00) X 10*3/uL PT 13.0 H (10.0-12.5) sec INR 1.2 H (<1.2) Est GFR (CKD-EPI) (>=60) BUN/Creatinine Ratio (12.00-20.00) Ratio Glucose (70-110) mg/dL POC Glucose (mg/dL) 186 H (70-110) mg/dL Calcium (8.7-10.3) mg/dL Iron (65-175) UG/DL % Saturation (15.00-50.00) Total Protein (6.2-8.2) g/dL Albumin (3.8-4.9) g/dL Assessment and Plan Plan: Acute exacerbation of diastolic congestive heart failure Underlying history of atrial fibrillation Underlying history of valvular heart disease with severe aortic stenosis and sev ere pulmonary hypertension Underlying history of hypertension Underlying history of hyperlipidemia Underlying history of diabetes mellitus anemia. GI service is consulted At this time patient was admitted to telemetry floor Home medications reviewed and reordered Cardiology consultation showing severe coronary artery disease of the circumflex plans for angioplasty on 02/06/2024 Will follow closely
[2024-02-06] MEDS: HEPARIN SODIUM 1,000 UN/ML (10ML VL) IV ONE (11:09)
[2024-02-06] MEDS: IOPAMIDOL-370 200ML BTL INJ ONE (11:41)
[2024-02-06] MEDS: SODIUM CHLORIDE 0.9% 1,000 ML IV SCH (12:00)
[2024-02-06 12:34] LABS: Glucose,Whole Blood 150 mg/dL (70-110)
--- NOTE | 2024-02-06 12:53 | US ---
EXAMINATION TYPE: US carotid duplex BILAT DATE OF EXAM: 02/06/2024 COMPARISON: NONE CLINICAL INDICATION: Male, 88 years old with history of pre TAVR; stenosis TECHNIQUE: Carotid duplex ultrasound examination. Indirect Doppler criteria was utilized. FINDINGS: EXAM MEASUREMENTS: RIGHT: Peak Systolic Velocity (PSV) cm/sec ----- Right CCA: 48.7 ----- Right ICA: 87.7 ----- Right ECA: 88.3 ICA/CCA ratio: 1.8 RIGHT: End Diastole cm/sec ----- Right CCA: 0 ----- Right ICA: 16.9 ----- Right ECA: 0 LEFT: Peak Systolic Velocity (PSV) cm/sec ----- Left CCA: 57.2 ----- Left ICA: 140 ----- Left ECA: 221 ICA/CCA ratio: 2.4 LEFT: End Diastole cm/sec ----- Left CCA: 16.9 ----- Left ICA: 41.8 ----- Left ECA: 0 VERTEBRALS (direction of flow): Right Vertebral: Antegrade Left Vertebral: Antegrade Rhythm: Normal SAFETY PATROL OFFICER NOTES: Bilateral plaque visualized. No significant stenosis seen IMPRESSION: 50-69% diameter reduction left ICA . Less than 50% stenosis right ICA. Criteria for Assigning % of Stenosis / Diameter reduction (Estimation based on the indirect measurements of the internal carotid artery velocities (ICA PSV). 1. Normal (no stenosis)=ICA PSV < 125 cm/s: ratio < 2.0: ICA EDV<40 cm/s. 2. Less than 50% stenosis=ICA PSV < 125 cm/s: ratio < 2.0: ICA EDV<40 cm/s. 3. 50 to 69% stenosis=ICA PSV of 125 to 230 cm/s: ration 2.0 ? 4.0: ICA EDV 40-100 cm/s. 4. Greater than 70% stenosis to near occlusion= ICA PSV > 230 cm/s: ratio > 4.0: ICA EDV > 100 cm/s. 5. Near occlusion= ICA PSV velocities may be low or undetectable: variable ratio and ICA EDV. 6. Total occlusion=unable to detect flow.
--- NOTE | 2024-02-06 13:14 | P.PRCINT ---
Percutaneous Coronary Int. - Percutaneous Coronary Intervention Percutaneous Coronary Intervention: PROCEDURES PERFORMED: Left coronary angiography, ultrasound guided arterial access, PCI mid to distal circumflex with a 2.5 x 15mm Xience ALEX, IVUS circumflex INDICATION: obstructive CAD with [place] Heart Association class III symptoms, dyspnea on exertion CONSENT:I have discussed the risks, benefits and alternative therapies for the above-mentioned procedure and for both sedation/analgesia as well as necessary blood product administration, if indicated, as they pertain to this patient. The patient has indicated understanding and acceptance of the risks and procedures discussed. PROCEDURE: After the risks, benefits and alternatives of the above mentioned procedure explained in detail with the patient, informed consent was obtained. Patient was taken to the catheterization lab and prepped and draped in usual fashion. Ultrasound guidance was used to assess for arterial access. 1% lidocaine was used to anesthetize the right radial artery. A 6-Cymraes sheath was placed in the right radial artery using modified Seldinger technique and ultrasound guidance. The decision was made to perform PCI of the circumflex. A 6-Cymraes CLS 3.5 guide was used to engage the left main. Heparin was given. A 0.014 BMW wire was advanced in the distal OM1 branch however with some difficulty and an additional 0.014 whisper wire was advanced the distal OM 2 branch. Predilation was performed with a 2.25 x 12 mm balloon. Next a 2.5 x 15 mm Xience ALEX was deployed in the mid circumflex into OM 2 branch without any significant impingement on OM1 which was jailed. The ostial circumflex was added and acute angle with difficulty advancing equipment past this area. Attempted to advance another 2.5 x 8 mm stents however difficulty advancing passes area and felt this would increase risk of dissection of this area. Intravascular ultrasound of the proximal circumflex showed no significant dissection and therefore the more proximal 30% stenosis prior to the stent was felt best treated medically. Final angiograms were performed. Preintervention there is 85% stenosis and FRANCISCO-3 flow and postintervention there was less than 10% stenosis with FRANCISCO 3 flow. The right radial sheath was removed and a TR band was placed with hemostasis achieved. The patient tolerated the procedure well. Patient was transported back to the post catheterization holding area in stable condition. Conscious Sedation: Patient was monitored under the direct supervision of myself for conscious sedation using Versed and fentanyl for a total duration of 38 minutes HEMODYNAMICS: Ao: 132/71 SELECTIVE CORONARY ARTERIOGRAPHY: LEFT MAIN: The left main is a large caliber vessel which bifurcates into the LAD and circumflex. There is distal left main heavily calcified 30% stenosis. LEFT ANTERIOR DESCENDING CORONARY ARTERY: LAD is a large caliber vessel which wraps around to the apex. There is proximal LAD 20-30% stenosis and otherwise mild luminal irregularities. LEFT CIRCUMFLEX CORONARY ARTERY: Left circumflex is a moderate caliber vessel with proximal circumflex 20-30% stenosis, mid circumflex 30% stenosis in a more focal 85% stenosis at the bifurcation of OM1 and OM 2. RIGHT CORONARY ARTERY: The right coronary artery was not imaged FINAL IMPRESSION: 1. CAD as described above including 30% left main, 20-30% proximal LAD, 85% mid circumflex stenosis 2. S/p PCI mid to distal circumflex with a 2.5 x 15mm Xience ALEX PLAN: 1. Aggressive risk factor modification per most recent ACC/AHA guidelines. 2. Continue Plavix with Coumadin for 6 months. 3. Goal LDL less than 70
[2024-02-06 17:27] LABS: Glucose,Whole Blood 162 mg/dL (70-110)
[2024-02-06] MEDS: WARFARIN 5 MG TAB PO ONE (17:51)
--- NOTE | 2024-02-06 18:09 | P.CONS ---
History of Present Illness - Reason for Consult Consult date: 02/06/24 Anemia Requesting physician: Rosalind Amaya - Chief Complaint Shortness of breath - History of Present Illness Pleasant 88-year-old male presenting to the hospital 3 days ago with complaints of shortness of breath and progressively worse dyspnea on exertion. He has a past medical history including heart failure, atrial fibrillation, aortic stenosis, pulmonary hypertension, hypertension, hyperlipidemia and diabetes mellitus. He has been followed by cardiology and underwent PCI with cardiology. With recommendations to continue Plavix and Coumadin for the next 6 months. Patient hemoglobin at 10.4 on admission with a repeat 9.1 and gastroenterology was consulted for anemia. Patient denies any blood in his stool or black stool. Colonoscopy was remote, no history of upper GI bleed. Patient with a normochromic normocytic anemia Review of Systems REVIEW OF SYSTEMS: CARDIOPULMONARY: No chest pain. Shortness of breath with dyspnea on exertion. Gastrointestinal: No abdominal pain. No nausea or vomiting. No hematemesis, coffee-ground emesis. No rectal bleeding, or melena. GENITOURINARY: No dysuria or hematuria. MUSCULOSKELETAL: Reports normal range of motion., Joint pain. ENDOCRINE: No chills, fevers. No excessive weight gain or loss. No polydipsia or polyuria. PSYCHIATRIC: Unremarkable. NEUROLOGY: No change in mental status. Denies dizziness, headache. ENT: Vision unremarkable. CONSTITUTIONAL: No recent weight loss. No fever, chills, night sweats. Past Medical History Past Medical History: Atrial Fibrillation, Heart Failure, Diabetes Mellitus, Hyperlipidemia, Hypertension, Myocardial Infarction (IA) Additional Past Medical History / Comment(s): Recent hospitalization for SOB, states had IA(01/14/24). Last Myocardial Infarction Date:: 01/14/24 History of Any Multi-Drug Resistant Organisms: None Reported Past Surgical History: Joint Replacement, Prostate Surgery Additional Past Surgical History / Comment(s): Right hip replacement, cataract surgery. Past Anesthesia/Blood Transfusion Reactions: No Reported Reaction Past Psychological History: No Psychological Hx Reported Smoking Status: Former smoker Past Alcohol Use History: Occasional Additional Past Alcohol Use History / Comment(s): Smoked cigars occasionally, never smoked cigarettes, quit over 30 yrs ago. Past Drug Use History: None Reported - Past Family History Mother Family Medical History: No Reported History Medications and Allergies Home Medications Medication Instructions Recorded Confirmed Type Furosemide [Lasix] 40 mg PO DAILY 05/11/18 02/03/24 History [place]-3 Fatty Acids/Fish Oil [Fish 1 cap PO DAILY 05/11/18 02/03/24 History Oil 1,000 mg Softgel] Omeprazole 20 mg PO DAILY PRN 05/11/18 02/03/24 History Pravastatin Sodium [Pravachol] 80 mg PO HS 05/11/18 02/03/24 History Warfarin Sodium [Coumadin] 2.5 mg PO DIRECTED 05/11/18 02/03/24 History glipiZIDE XL [Glucotrol XL] 10 mg PO DAILY 05/11/18 02/03/24 History metFORMIN HCL [Glucophage] 1,000 mg PO DAILY 05/11/18 02/03/24 History Glucosamine/Chondr Harmon A Sod [Osteo 1 tab PO DAILY 01/14/24 02/03/24 History Bi-Flex Caplet] amLODIPine [Norvasc] 5 mg PO DAILY 30 Days #30 tab 01/17/24 02/03/24 Rx carvediloL [Coreg*] 25 mg PO BID-W/MEALS 30 Days #60 01/17/24 02/03/24 Rx tab Allergies Allergy/AdvReac Type Severity Reaction Status Date / Time No Known Allergies Allergy Verified 02/03/24 14:04 Physical Exam Vitals: Vital Signs Temp Pulse Resp BP BP Pulse Ox 02/06/24 07:00 97.8 F 70 17 128/69 96 02/06/24 02:02 98.1 F 61 17 137/65 96 02/05/24 19:10 98.5 F 77 18 106/61 96 02/05/24 15:35 69 14 124/64 94 L 02/05/24 14:35 76 14 143/72 97 02/05/24 13:35 73 14 126/61 96 02/05/24 13:05 71 14 127/66 94 L 02/05/24 12:35 63 14 137/64 94 L 02/05/24 12:20 63 14 131/67 94 L 02/05/24 12:05 67 14 132/61 94 L 02/05/24 11:50 97.8 F 75 14 135/67 93 L Intake and Output 02/05/24 02/06/24 02/06/24 22:59 06:59 14:59 Intake Total 118 50 Output Total 200 Balance -82 50 Intake: IV 50 Oral 118 0 Output: Urine 200 Other: Voiding Method Urinal Urinal Weight 80.5 kg General appearance: The patient is alert, oriented, appears in no acute distress. HET: Head is normocephalic and atraumatic. Conjunctiva pink. Sclera anicteric. Neck: Supple without lymphadenopathy. Trachea midline. Heart: Regular. Lungs: Equal expansion, normal respiratory effort. Abdomen: Soft, nontender, nondistended. Skin: No rashes. No jaundice. Extremities: Normal skin color and turgor. No pedal edema. Neurological: No focal deficits. Alert and oriented x3. Results CBC & Chem 7: 02/06/24 04:51 02/06/24 04:51 Labs: Abnormal Lab Results - Last 24 Hours (Table) 02/05/24 02/05/24 02/05/24 Range/Units 03:18 12:03 16:50 RBC (4.40-5.60) X 10*6/uL Hgb (13.0-17.0) g/dL Hct (39.6-50.0) % MCHC (32.0-37.0) g/dL RDW (11.5-14.5) % Lymphocytes # (0.90-5.00) X 10*3/uL PT (10.0-12.5) sec INR (<1.2) Est GFR (CKD-EPI) (>=60) BUN/Creatinine Ratio (12.00-20.00) Ratio Glucose (70-110) mg/dL POC Glucose (mg/dL) 136 H 144 H (70-110) mg/dL Calcium (8.7-10.3) mg/dL Iron 16 L (65-175) UG/DL % Saturation 5.08 L (15.00-50.00) Total Protein (6.2-8.2) g/dL Albumin (3.8-4.9) g/dL 02/05/24 02/06/24 02/06/24 Range/Units 20:13 04:51 04:51 RBC 3.25 L (4.40-5.60) X 10*6/uL Hgb 9.1 L (13.0-17.0) g/dL Hct 30.0 L (39.6-50.0) % MCHC 30.3 L (32.0-37.0) g/dL RDW 16.3 H (11.5-14.5) % Lymphocytes # 0.72 L (0.90-5.00) X 10*3/uL PT (10.0-12.5) sec INR (<1.2) Est GFR (CKD-EPI) 53 L (>=60) BUN/Creatinine Ratio 20.15 H (12.00-20.00) Ratio Glucose 136 H (70-110) mg/dL POC Glucose (mg/dL) 190 H (70-110) mg/dL Calcium 8.4 L (8.7-10.3) mg/dL Iron (65-175) UG/DL % Saturation (15.00-50.00) Total Protein 5.2 L (6.2-8.2) g/dL Albumin 3.5 L (3.8-4.9) g/dL 02/06/24 02/06/24 Range/Units 04:51 05:51 RBC (4.40-5.60) X 10*6/uL Hgb (13.0-17.0) g/dL Hct (39.6-50.0) % MCHC (32.0-37.0) g/dL RDW (11.5-14.5) % Lymphocytes # (0.90-5.00) X 10*3/uL PT 13.0 H (10.0-12.5) sec INR 1.2 H (<1.2) Est GFR (CKD-EPI) (>=60) BUN/Creatinine Ratio (12.00-20.00) Ratio Glucose (70-110) mg/dL POC Glucose (mg/dL) 186 H (70-110) mg/dL Calcium (8.7-10.3) mg/dL Iron (65-175) UG/DL % Saturation (15.00-50.00) Total Protein (6.2-8.2) g/dL Albumin (3.8-4.9) g/dL Assessment and Plan (1) Normochromic normocytic anemia Narrative/Plan: 88-year-old with multiple comorbidities presenting with shortness of breath with significant cardiac history including coronary artery disease and atrial fibrillation on chronic anticoagulation with Coumadin, underwent cardiac catheterization today. Patient presents with a normal Citic normochromic anemia likely secondary to anemia of chronic disease. No reported blood in his stool. Will order anemia profile with no plans of endoscopic evaluation. Current Visit: Yes Status: Acute Code(s): D64.9 - ANEMIA, UNSPECIFIED SNOMED Code(s): 91108024 (2) Atrial fibrillation Current Visit: Yes Status: Acute Code(s): I48.91 - UNSPECIFIED ATRIAL FIBRILLATION SNOMED Code(s): 79215161 (3) Chronic anticoagulation Current Visit: Yes Status: Acute Code(s): Z79.01 - [facility] (CURRENT) USE OF ANTICOAGULANTS SNOMED Code(s): 961176780 (4) Heart failure Current Visit: Yes Status: Acute Code(s): I50.9 - HEART FAILURE, UNSPECIFIED SNOMED Code(s): 28388230 (5) Coronary artery disease Current Visit: Yes Status: Acute Code(s): I25.10 - ATHSCL HEART DISEASE OF [place] CORONARY ARTERY W/O ANG PCTRS SNOMED Code(s): 36590058 (6) Diabetes mellitus Current Visit: Yes Status: Acute Code(s): E11.9 - TYPE 2 DIABETES MELLITUS WITHOUT COMPLICATIONS SNOMED Code(s): 52789154 Plan: 1. Continue symptomatic and supportive care 2. Daily CBC, transfuse for hemoglobin less than 7 3. Anemia profile ordered 5. Protonix 40 mg daily for GI prophylaxis 6. Continue anticoagulation per recommendations from cardiology 7. No plans on endoscopic evaluation, patient can follow-up as an outpatient Thank you for this consultation, we will continue to follow. Dr. Johnie Aranda I agree with the dictator's note, documented as a scribe by Verónica Moreno.
[2024-02-06 20:35] LABS: Glucose,Whole Blood 172 mg/dL (70-110)
[2024-02-07 06:03] LABS: Glucose,Whole Blood 132 mg/dL (70-110)
[2024-02-07 06:37] LABS: INR 1.1 (<1.2); Prothrombin Time 12.1 sec (10.0-12.5)
--- NOTE | 2024-02-07 08:59 | P.PN ---
Subjective Progress Note Date: 02/07/24 Principal diagnosis: Anemia Pleasant 88-year-old male presenting to the hospital 3 days ago with complaints of shortness of breath and progressively worse dyspnea on exertion. He has a past medical history including heart failure, atrial fibrillation, aortic stenosis, pulmonary hypertension, hypertension, hyperlipidemia and diabetes mellitus. He has been followed by cardiology and underwent PCI with cardiology. With recommendations to continue Plavix and Coumadin for the next 6 months. Patient hemoglobin at 10.4 on admission with a repeat 9.1 and gastroenterology was consulted for anemia. Patient denies any blood in his stool or black stool. Colonoscopy was remote, no history of upper GI bleed. Patient with a normochromic normocytic anemia Patient seen and examined today as a follow-up. He is sitting up in chair. No complaints at this time. Denies any shortness of breath or chest pain. Has not had a bowel movement since his first day when he came in. Denies any rectal bleeding. No abdominal pain, nausea or vomiting. Labs are pending from today. Iron studies are consistent with iron deficiency however ferritin is still pending. Objective - Vital Signs Vital signs: Vital Signs Temp 97.4 F L 02/07/24 07:20 Pulse 75 02/07/24 07:20 Resp 16 02/07/24 07:20 BP 116/53 02/07/24 07:20 Pulse Ox 96 02/07/24 07:20 FiO2 Intake & Output 02/06/24 02/07/24 02/07/24 18:59 06:59 18:59 Intake Total 168 Balance 168 Weight 80.1 kg Intake: IV 50 Oral 118 Other: Voiding Method Urinal - Exam General appearance: The patient is alert, oriented, appears in no acute distress. HET: Head is normocephalic and atraumatic. Conjunctiva pink. Sclera anicteric. Neck: Supple without lymphadenopathy. Abdomen: Soft, nontender, nondistended with bowel sounds. No guarding or rigidity. Extremities: Normal skin color and turgor. No pedal edema Skin: No rashes, no jaundice Neurological: No focal deficits. Alert and oriented. - Labs CBC & Chem 7: 02/06/24 04:51 02/06/24 04:51 Labs: Abnormal Lab Results - Last 24 Hours (Table) 02/06/24 02/06/24 02/06/24 Range/Units 04:51 12:32 17:25 Est GFR (CKD-EPI) 53 L (>=60) BUN/Creatinine Ratio 20.15 H (12.00-20.00) Ratio Glucose 136 H (70-110) mg/dL POC Glucose (mg/dL) 150 H 162 H (70-110) mg/dL Calcium 8.4 L (8.7-10.3) mg/dL Total Protein 5.2 L (6.2-8.2) g/dL Albumin 3.5 L (3.8-4.9) g/dL 02/06/24 02/07/24 Range/Units 20:34 06:02 Est GFR (CKD-EPI) (>=60) BUN/Creatinine Ratio (12.00-20.00) Ratio Glucose (70-110) mg/dL POC Glucose (mg/dL) 172 H 132 H (70-110) mg/dL Calcium (8.7-10.3) mg/dL Total Protein (6.2-8.2) g/dL Albumin (3.8-4.9) g/dL Assessment and Plan (1) Normochromic normocytic anemia Narrative/Plan: 88-year-old with multiple comorbidities presenting with shortness of breath with significant cardiac history including coronary artery disease and atrial fibrillation on chronic anticoagulation with Coumadin, underwent cardiac catheterization today. Patient presents with a normal [place] normochromic anemia likely secondary to anemia of chronic disease. No reported blood in his stool. Will order anemia profile with no plans of endoscopic evaluation. Current Visit: Yes Status: Acute Code(s): D64.9 - ANEMIA, UNSPECIFIED SNOMED Code(s): 86922302 (2) Atrial fibrillation Current Visit: Yes Status: Acute Code(s): I48.91 - UNSPECIFIED ATRIAL FIBRILLATION SNOMED Code(s): 84298544 (3) Chronic anticoagulation Current Visit: Yes Status: Acute Code(s): Z79.01 - SNF (CURRENT) USE OF ANTICOAGULANTS SNOMED Code(s): 763819209 (4) Heart failure Current Visit: Yes Status: Acute Code(s): I50.9 - HEART FAILURE, UNSPECIFIED SNOMED Code(s): 81294736 (5) Coronary artery disease Current Visit: Yes Status: Acute Code(s): I25.10 - ATHSCL HEART DISEASE OF [place] CORONARY ARTERY W/O ANG PCTRS SNOMED Code(s): 07779585 (6) Diabetes mellitus Current Visit: Yes Status: Acute Code(s): E11.9 - TYPE 2 DIABETES MELLITUS WITHOUT COMPLICATIONS SNOMED Code(s): 32819143 Plan: 1. Continue symptomatic and supportive care 2. Anemia profile ordered and reviewed 3. Protonix 40 mg daily for GI prophylaxis 4. Continue anticoagulation per recommendations from cardiology 5. Iron replacement 6. No plans on endoscopic evaluation, recommend outpatient follow-up to discuss possible outpstient endoscopic evaluation Thank you for this consultation, patient is cleared from gastroenterology for discharge. Dr. Johnie Aranda I agree with the dictator's note, documented as a scribe by Verónica Moreno.
[2024-02-07] MEDS: ASPIRIN 81 MG PO SCH (09:09)
[2024-02-07] MEDS: CLOPIDOGREL 75 MG TAB PO STA (09:09)
[2024-02-07] MEDS: WARFARIN 2.5 MG TAB PO SCH (09:43)
[2024-02-07] MEDS: SODIUM FERRIC GLUCONAT-SUCROSE 125 MG in SODIUM CHLORIDE 0.9% 100 ML IVPB ONE (10:24)
--- NOTE | 2024-02-07 10:38 | P.PN ---
Progress Note - Text Progress Note Date: 02/07/24 Patient was seen and examined, TAVR workup initiated. Formal consult to follow Structural Heart meeting. Patient scheduled for TAVR CTA next , 02/14/24, need to allow time between heart cath and CTA to avoid contrast induced nephropathy. Structural heart meeting set for 03/17/24 with entire team. Discussed with the patient and his family, placed on his discharge instructions. Patient is cleared from our standpoint for discharge and outpatient follow up.
--- NOTE | 2024-02-07 10:56 | P.PN ---
Progress Note - Text Patient is doing well. He feels better no chest discomfort no dizziness or lightheadedness when he walks around the room His exercise is healed well Heart sounds are normal but irregular. Rates are controlled Blood pressure 116/53 mmHg pulse rate in the 70s and 80s afebrile Murmur of aortic stenosis audible Impression Coronary artery disease status post stenting to the distal circumflex yesterday Stable from a cardiovascular standpoint Severe aortic stenosis being worked up for percutaneous aortic valve replacement seen by CT surgery Plan From a cardiac standpoint he will start aspirin and Plavix and will resume warfarin at 2.5 mg p.o. daily Triple therapy for a few weeks and then Eliquis plus Plavix only Continue statins Continue antihypertensive therapy Continue beta-blockers Patient awaiting BMP today. If his creatinine is stable he may go home from a cardiac standpoint and follow-up with Dr. Gilbert within 1 week and in the TAVR clinic as scheduled transfer tech
[2024-02-07 11:49] LABS: NT-Pro-B-Type Natriuretic Pept 11291 pg/mL (0-450)
[2024-02-07 11:57] LABS: % Iron Saturation 6.85 (15.00-50.00); Chol/HDL Ratio 4.33 Ratio; Iron 23 UG/DL (65-175); LDL Cholesterol,Calculated 93.2 mg/dL (0.0-131.0); Total Iron Binding Capacity 336 UG/DL (228-460)
[2024-02-07 12:06] LABS: Glucose,Whole Blood 156 mg/dL (70-110)
[2024-02-07 15:14] VITALS: BMI 28.5
[2024-02-07 17:07] LABS: Glucose,Whole Blood 161 mg/dL (70-110)
[2024-02-07] MEDS ORDERED: WARFARIN 5 MG TAB PO SCH (18:00)
--- NOTE | 2024-02-07 18:44 | P.DS ---
Providers Date of admission: 02/05/24 14:08 Expected date of discharge: 02/07/24 Attending physician: Rosalind Amaya Consults: 02/03/24 13:28 Consult Physician Routine Consulting Provider: Yovany Aranda Consult Reason/Comments: chf Do you want consulting provider notified?: Yes 02/05/24 14:28 Consult Physician Routine Consulting Provider: Maddie Aranda Consult Reason/Comments: anemia Do you want consulting provider notified?: Yes 02/06/24 09:28 Consult Physician Routine Consulting Provider: Maksim Alcala Consult Reason/Comments: aortic stenosis Do you want consulting provider notified?: Yes Primary care physician: Nicole [facility] Course: Diagnosis on discharge: Acute exacerbation of diastolic congestive heart failure Underlying history of atrial fibrillation Underlying history of valvular heart disease with severe aortic stenosis and severe pulmonary hypertension Underlying history of hypertension Underlying history of hyperlipidemia Underlying history of diabetes mellitus anemia. GI service is consulted Hospital course: Javon Chavira, is an 88-year-old male who presented to [facility] emergency room with a chief complaint of worsening shortness of breath, patient stated that his symptoms started 4 days ago and has been worsening, patient was recently admitted to [facility] with similar symptoms, he is followed by cardiology and had a cardiac catheterization scheduled for next week with Dr. Gilbert. He was evaluated in the emergency room vital examination on presentation revealed a temperature of 97.8 pulse 82 respiration 18 blood pressure 134/65 pulse ox 97% on room air Laboratory data reveals a white blood count of 7.7 hemoglobin 10.4 platelet count 247 INR 2.0 BUN 32 creatinine 1.34 Testing in the emergency room revealed Patient was admitted to medical floor for further evaluation and treatment On 02/05/2024 patient is alert and oriented 3. Patient to go down for cardiac catheterization this a.m. At this time patient denies chest pain or shortness breath. Patient denies nausea vomiting or diarrhea. Patient denies any urinary burning or frequency. Current vital signs temp 98.8, heart rate 81, respiratory rate 16, blood pressure 127/61 with pulse ox 97% on room air On 02/05/2025 for patient's alert and oriented 3.patient underwent cardiac catheterization yesterday which showed severe one-vessel coronary artery disease of the circumflex. Plans today for angioplasty. Patient also having low hemoglobin of 9.0. GI service is consulted. Creatinine 1.3 bun 26.2. Current vital signs temp 97.8, heart rate 70, respiratory rate 17, blood pressure 128/69 with pulse ox 96 on room air. Patient denies chest pain or shortness breath. Patient denies nausea vomiting or diarrhea. Patient denies any urinary burning or frequency On 02/06/2023 patient was seen and examined on the medical floor he is alert and oriented x 3 in no apparent distress there is no fever or chills no headache or dizziness no chest pain no shortness of breath no cough no nausea or vomiting no abdominal pain no diarrhea and no urinary symptoms. Patient was evaluated by cardiology and was cleared for discharge, he will be discharged to home today, follow-up with cardiology as outpatient. Plan - Discharge Summary New Discharge Prescriptions: New Clopidogrel [Plavix] 75 mg PO DAILY #90 tablet Aspirin 81 mg PO DAILY #30 tab Aspirin 81 mg PO DAILY 30 Days #30 tab Nitroglycerin Sl Tabs [Nitrostat] 0.4 mg SUBLINGUAL Q5M PRN 30 Days #25 tab PRN Reason: Chest Pain Continue Pravastatin Sodium [Pravachol] 80 mg PO HS Furosemide [Lasix] 40 mg PO DAILY glipiZIDE XL [Glucotrol XL] 10 mg PO DAILY metFORMIN HCL [Glucophage] 1,000 mg PO DAILY Warfarin Sodium [Coumadin] 2.5 mg PO DIRECTED Omeprazole 20 mg PO DAILY PRN PRN Reason: acid reflux [place]-3 Fatty Acids/Fish Oil [Fish Oil 1,000 mg Softgel] 1 cap PO DAILY Glucosamine/Chondr Harmon A Sod [Osteo Bi-Flex Caplet] 1 tab PO DAILY carvediloL [Coreg*] 25 mg PO BID-W/MEALS 30 Days #60 tab amLODIPine [Norvasc] 5 mg PO DAILY 30 Days #30 tab Discharge Medication List Furosemide [Lasix] 40 mg PO DAILY 05/11/18 [History] [place]-3 Fatty Acids/Fish Oil [Fish Oil 1,000 mg Softgel] 1 cap PO DAILY 05/11/18 [History] Omeprazole 20 mg PO DAILY PRN 05/11/18 [History] Pravastatin Sodium [Pravachol] 80 mg PO HS 05/11/18 [History] Warfarin Sodium [Coumadin] 2.5 mg PO DIRECTED 05/11/18 [History] glipiZIDE XL [Glucotrol XL] 10 mg PO DAILY 05/11/18 [History] metFORMIN HCL [Glucophage] 1,000 mg PO DAILY 05/11/18 [History] Glucosamine/Chondr Harmon A Sod [Osteo Bi-Flex Caplet] 1 tab PO DAILY 01/14/24 [History] amLODIPine [Norvasc] 5 mg PO DAILY 30 Days #30 tab 01/17/24 [Rx] carvediloL [Coreg*] 25 mg PO BID-W/MEALS 30 Days #60 tab 01/17/24 [Rx] Aspirin 81 mg PO DAILY #30 tab 02/07/24 [Rx] Aspirin 81 mg PO DAILY 30 Days #30 tab 02/07/24 [Rx] Clopidogrel [Plavix] 75 mg PO DAILY #90 tablet 02/07/24 [Rx] Nitroglycerin Sl Tabs [Nitrostat] 0.4 mg SUBLINGUAL Q5M PRN 30 Days #25 tab 02/07/24 [Rx] Follow up Appointment(s)/Referral(s): Nicole Little MD [Primary Care Provider] - 1-2 days Maddie Aranda MD [STAFF PHYSICIAN] - 02/26/24 2:00 pm Yovany Aranda MD [STAFF PHYSICIAN] - 02/14/24 9:30 am Clinic,Structural Heart [NON-STAFF] - 03/17/24 3:00 pm (Your TAVR CTA is scheduled 02/14/24 at 10:30 am, and your appointment in the valve clinic to meet with the structural heart team to discuss TAVR is 03/17/24 @ 3 pm) Patient Instructions/Handouts: Heart Catheterization (DC)
--- NOTE | 2024-02-07 18:46 | P.PN ---
Progress Note - Text Progress Note Date: 02/07/24 After discharge patient to try to stand up, but felt dizzy and lightheaded Cardiology were contacted and Dr. Barrios advised to hold discharge at this time and continue to monitor till tomorrow Medication resumed Will recheck labs and follow-up in a.m.
[2024-02-07 19:38] LABS: Glucose,Whole Blood 200 mg/dL (70-110)
[2024-02-07 20:11] LABS: Glucose,Whole Blood 235 mg/dL (70-110)
[2024-02-07 22:25] LABS: Anisocytosis Slight; Basophils % (A) 0 %; Eosinophils # (A) 0.1 k/uL (0-0.7); Eosinophils % (A) 1 %; HCT 28.1 % (39.0-53.0); Hypochromasia Marked; Lymphocytes # (A) 0.6 k/uL (1.0-4.8); Lymphocytes % (A) 8 %; MCH 28.3 pg (25.0-35.0); MCHC 31.4 g/dL (31.0-37.0); MCV 89.9 fL (80.0-100.0); Monocytes # (A) 0.6 k/uL (0-1.0); Monocytes % (A) 8 %; Neutrophils # (A) 6.1 k/uL (1.3-7.7); Neutrophils % (A) 79 %; Platelet Count 198 k/uL (150-450); RBC 3.13 m/uL (4.30-5.90); WBC 7.7 k/uL (3.8-10.6)
[2024-02-07 22:27] LABS: HGB 8.8 gm/dL (13.0-17.5)
[2024-02-07 22:28] LABS: ALT 13 U/L (4-49); AST 25 U/L (17-59); African American GFR (CKD) 46 (>60 ml/min/1.73 sqM); Albumin 3.1 g/dL (3.5-5.0); Alkaline Phosphatase 44 U/L (38-126); Anion Gap 7 mmol/L; Blood Urea Nitrogen 31 mg/dL (9-20); Calcium 8.6 mg/dL (8.4-10.2); Carbon Dioxide 21 mmol/L (22-30); Chloride 109 mmol/L (98-107); Glucose 179 mg/dL (74-99); Non-African American GFR(CKD) 39 (>60 ml/min/1.73 sqM); Potassium 4.1 mmol/L (3.5-5.1); Sodium 137 mmol/L (137-145); Total Bilirubin 0.7 mg/dL (0.2-1.3); Total Protein 5.2 g/dL (6.3-8.2)
[2024-02-08] MEDS: ALPRAZolam 0.25 MG TAB PO PRN (00:09)
[2024-02-08] MEDS ORDERED: Magnesium Replacement Protocol 1 EACH MISC MISCELLANE PRN (02:10)
[2024-02-08] MEDS: MAGNESIUM SULFATE-D5W PMX 1 GM in DEXTROSE/WATER 1 100ML.BAG IVPB ONE (02:35)
[2024-02-08 06:05] LABS: Basophils % (A) 0 %; Eosinophils # (A) 0.1 k/uL (0-0.7); Eosinophils % (A) 2 %; HCT 29.7 % (39.0-53.0); Hypochromasia Marked; Lymphocytes # (A) 1.1 k/uL (1.0-4.8); Lymphocytes % (A) 16 %; MCH 27.9 pg (25.0-35.0); MCHC 30.4 g/dL (31.0-37.0); MCV 91.7 fL (80.0-100.0); Mean Platelet Volume 8.2; Monocytes # (A) 0.5 k/uL (0-1.0); Monocytes % (A) 7 %; Neutrophils # (A) 5.2 k/uL (1.3-7.7); Neutrophils % (A) 73 %; Platelet Count 229 k/uL (150-450); RBC 3.24 m/uL (4.30-5.90); RDW 15.7 % (11.5-15.5); WBC 7.1 k/uL (3.8-10.6)
[2024-02-08 06:32] LABS: ALT 13 U/L (4-49); AST 25 U/L (17-59); African American GFR (CKD) 50 (>60 ml/min/1.73 sqM); Albumin 3.1 g/dL (3.5-5.0); Alkaline Phosphatase 43 U/L (38-126); Anion Gap 6 mmol/L; Blood Urea Nitrogen 29 mg/dL (9-20); Calcium 8.5 mg/dL (8.4-10.2); Carbon Dioxide 20 mmol/L (22-30); Chloride 111 mmol/L (98-107); Glucose 123 mg/dL (74-99); Non-African American GFR(CKD) 43 (>60 ml/min/1.73 sqM); Potassium 4.1 mmol/L (3.5-5.1); Sodium 137 mmol/L (137-145); Total Bilirubin 0.6 mg/dL (0.2-1.3); Total Protein 5.3 g/dL (6.3-8.2)
--- NOTE | 2024-02-08 07:58 | XR ---
EXAMINATION TYPE: XR chest 1V portable DATE OF EXAM: 02/08/2024 HISTORY: Shortness of breath. COMPARISON: 02/03/2024 TECHNIQUE: Single view of the chest is submitted. FINDINGS: Demonstrated are scattered senescent parenchymal change. There is pulmonary venous congestion with interstitial and perihilar edema as well as cardiomegaly. Hilar and mediastinal structures are within normal limits. Degenerative changes are seen of the dorsal spine. IMPRESSION: 1. Findings felt to reflect congestive failure. Infiltrates of other etiology not excluded. Correlat e clinically and progress studies are advised.
--- NOTE | 2024-02-08 08:37 | P.GSCN ---
History of Present Illness Consult date: 02/08/24 Reason for Consult: Severe aortic stenosis Requesting physician: Oswaldo Barrios History of present illness: This is an 88-year-old male who follows outpatient with Dr. Little for primary care and Dr. Aranda for cardiology. He has a previous medical history of aortic stenosis, hypertension, hyperlipidemia, diabetes mellitus, permanent atrial fibrillation on Coumadin for anticoagulation, chronic heart failure with pres erved ejection fraction, severe pulmonary hypertension, chronic kidney disease stage III, chronic anemia, and previous tobacco dependence. He presented to [facility] emergency room on February 02 with complaints of progressive shortness of breath over the previous several days. He was admitted with diagnosis of acute on chronic heart failure with consultation placed to cardiology. He has a known history of aortic stenosis with most recent echocardiogram revealing preserved left ventricular systolic function with EF 55 to 60%, severe pulmonary hypertension, trileaflet aortic valve with peak/mean gradient 53/32 mmHg, peak velocity 3.67 m/s, mild to moderate mitral regurgitation and moderate tricuspid regurgitation. He underwent transesophageal echocardiogram by Dr. Aranda on February 03 revealing heavily calcified aortic valve with severe leaflet restriction and valve area 0.6 cm, trace aortic regurgitation, moderate to severe central mitral regurgitation, and mild tricuspid regurgitation. Heart catheterization was also completed demonstrating 30% left main stenosis, 20 to 30% proximal LAD stenosis, 85% mid circumflex stenosis. Drug-eluting stent was placed to the mid to distal circumflex with recommendations for continued Plavix and Coumadin for 6 months along with risk factor modification. The patient was to be discharged yesterday to follow-up outpatient for TAVR workup. Unfortunately prior to discharge the patient had a syncopal episode, an A-team was called, and the patient was transferred to the intensive care unit. This morning he was having chest pain. We have been asked to evaluate this gentleman for inpatient TAVR. Review of Systems Review of systems was completed and was negative except as noted - Cardiovascular Reports chest pain, Reports dyspnea on exertion, Reports syncope Past Medical History Past Medical History: Atrial Fibrillation, Heart Failure, Diabetes Mellitus, Hyperlipidemia, Hypertension, Myocardial Infarction (MA), Renal Disease, Syncope Additional Past Medical History / Comment(s): Recent hospitalization for SOB, states had MA(01/14/24). Aortic stenosis Last Myocardial Infarction Date:: 01/14/24 History of Any Multi-Drug Resistant Organisms: None Reported Past Surgical History: Joint Replacement, Prostate Surgery Additional Past Surgical History / Comment(s): Right hip replacement, cataract surgery. Past Anesthesia/Blood Transfusion Reactions: No Reported Reaction Past Psychological History: No Psychological Hx Reported Smoking Status: Former smoker Past Alcohol Use History: Occasional Additional Past Alcohol Use History / Comment(s): Smoked cigars occasionally, never smoked cigarettes, quit over 30 yrs ago. Past Drug Use History: None Reported - Past Family History Mother Family Medical History: No Reported History Medications and Allergies Home Medications Medication Instructions Recorded Confirmed Type Furosemide [Lasix] 40 mg PO DAILY 05/11/18 02/03/24 History [place]-3 Fatty Acids/Fish Oil [Fish 1 cap PO DAILY 05/11/18 02/03/24 History Oil 1,000 mg Softgel] Omeprazole 20 mg PO DAILY PRN 05/11/18 02/03/24 History Pravastatin Sodium [Pravachol] 80 mg PO HS 05/11/18 02/03/24 History Warfarin Sodium [Coumadin] 2.5 mg PO DIRECTED 05/11/18 02/03/24 History glipiZIDE XL [Glucotrol XL] 10 mg PO DAILY 05/11/18 02/03/24 History metFORMIN HCL [Glucophage] 1,000 mg PO DAILY 05/11/18 02/03/24 History Glucosamine/Chondr Harmon A Sod [Osteo 1 tab PO DAILY 01/14/24 02/03/24 History Bi-Flex Caplet] amLODIPine [Norvasc] 5 mg PO DAILY 30 Days #30 tab 01/17/24 02/03/24 Rx carvediloL [Coreg*] 25 mg PO BID-W/MEALS 30 Days #60 01/17/24 02/03/24 Rx tab Aspirin 81 mg PO DAILY #30 tab 02/07/24 Rx Aspirin 81 mg PO DAILY 30 Days #30 tab 02/07/24 Rx Clopidogrel [Plavix] 75 mg PO DAILY #90 tablet 02/07/24 Rx Nitroglycerin Sl Tabs [Nitrostat] 0.4 mg SUBLINGUAL Q5M PRN 30 Days 02/07/24 Rx #25 tab Allergies Allergy/AdvReac Type Severity Reaction Status Date / Time No Known Allergies Allergy Verified 02/03/24 14:04 Surgical - Exam Vital Signs Temp Pulse Resp BP Pulse Ox 97.8 F 82 18 134/65 97 02/03/24 10:04 02/03/24 10:04 02/03/24 10:04 02/03/24 10:04 02/03/24 10:04 CONSTITUTIONAL: Awake and alert, appears somewhat comfortable although a bit anxious, cooperative EYES: Pupils equal, round, reactive to light, normal ocular movement ENT: Moist mucous membranes without oral lesions present NECK: No masses, no bruits, trachea midline RESPIRATORY: Lungs sounds diminished to auscultation bilaterally. Respirations even, nonlabored. Currently on 2 L nasal cannula with oxygen saturation 94%. Strong cough CARDIOVASCULAR: S1, diminished S2 present, systolic murmur present. Irregular rate and rhythm, atrial fibrillation on telemetry. Palpable peripheral pulses bilaterally. Trace bilateral lower extremity edema present GASTROINTESTINAL: Abdomen soft, nontender, nondistended without masses or organomegaly noted. There is no rebound or guarding present. Active bowel sounds present 4 quadrants. GENITOURINARY: Deferred INTEGUMENTARY: Skin is warm and dry NEUROLOGIC: Cranial nerves II through XII intact, normal coordination, no obvious motor or sensory deficits, speech is normal MUSKULOSKELETAL: Able to move all extremities, strength equal bilaterally, normal posture PSYCHIATRIC: Alert and oriented to person place and time CLINICAL FRAILTY SCORE 6 Results - Labs 02/08/24 05:49 02/08/24 05:49 Abnormal Lab Results - Last 24 Hours (Table) 02/07/24 02/07/24 02/07/24 Range/Units 05:57 05:57 12:00 RBC (4.30-5.90) m/uL Hgb (13.0-17.5) gm/dL Hct (39.0-53.0) % MCHC (31.0-37.0) g/dL RDW (11.5-15.5) % Lymphocytes # (1.0-4.8) k/uL Chloride (98-107) mmol/L Carbon Dioxide (22-30) mmol/L BUN (9-20) mg/dL Creatinine (0.66-1.25) mg/dL Glucose (74-99) mg/dL POC Glucose (mg/dL) 156 H (70-110) mg/dL Hemoglobin A1c 6.9 H (<=6.0) % Iron 23 L (65-175) UG/DL % Saturation 6.85 L (15.00-50.00) NT-Pro-B Natriuret Pep [id number] H (0-450) pg/mL Total Protein (6.3-8.2) g/dL Albumin (3.5-5.0) g/dL HDL Cholesterol 35.80 L (40.00-60.00) mg/dL 02/07/24 02/07/24 02/07/24 Range/Units 17:03 19:35 20:09 RBC (4.30-5.90) m/uL Hgb (13.0-17.5) gm/dL Hct (39.0-53.0) % MCHC (31.0-37.0) g/dL RDW (11.5-15.5) % Lymphocytes # (1.0-4.8) k/uL Chloride (98-107) mmol/L Carbon Dioxide (22-30) mmol/L BUN (9-20) mg/dL Creatinine (0.66-1.25) mg/dL Glucose (74-99) mg/dL POC Glucose (mg/dL) 161 H 200 H 235 H (70-110) mg/dL Hemoglobin A1c (<=6.0) % Iron (65-175) UG/DL % Saturation (15.00-50.00) NT-Pro-B Natriuret Pep (0-450) pg/mL Total Protein (6.3-8.2) g/dL Albumin (3.5-5.0) g/dL HDL Cholesterol (40.00-60.00) mg/dL 02/07/24 02/07/24 02/08/24 Range/Units 21:56 21:56 05:49 RBC 3.13 L 3.24 L (4.30-5.90) m/uL Hgb 8.8 L D 9.0 L (13.0-17.5) gm/dL Hct 28.1 L 29.7 L (39.0-53.0) % MCHC 30.4 L (31.0-37.0) g/dL RDW 16.0 H 15.7 H (11.5-15.5) % Lymphocytes # 0.6 L (1.0-4.8) k/uL Chloride 109 H (98-107) mmol/L Carbon Dioxide 21 L (22-30) mmol/L BUN 31 H (9-20) mg/dL Creatinine 1.56 H (0.66-1.25) mg/dL Glucose 179 H (74-99) mg/dL POC Glucose (mg/dL) (70-110) mg/dL Hemoglobin A1c (<=6.0) % Iron (65-175) UG/DL % Saturation (15.00-50.00) NT-Pro-B Natriuret Pep (0-450) pg/mL Total Protein 5.2 L (6.3-8.2) g/dL Albumin 3.1 L (3.5-5.0) g/dL HDL Cholesterol (40.00-60.00) mg/dL 02/08/24 Range/Units 05:49 RBC (4.30-5.90) m/uL Hgb (13.0-17.5) gm/dL Hct (39.0-53.0) % MCHC (31.0-37.0) g/dL RDW (11.5-15.5) % Lymphocytes # (1.0-4.8) k/uL Chloride 111 H (98-107) mmol/L Carbon Dioxide 20 L (22-30) mmol/L BUN 29 H (9-20) mg/dL Creatinine 1.45 H (0.66-1.25) mg/dL Glucose 123 H (74-99) mg/dL POC Glucose (mg/dL) (70-110) mg/dL Hemoglobin A1c (<=6.0) % Iron (65-175) UG/DL % Saturation (15.00-50.00) NT-Pro-B Natriuret Pep (0-450) pg/mL Total Protein 5.3 L (6.3-8.2) g/dL Albumin 3.1 L (3.5-5.0) g/dL HDL Cholesterol (40.00-60.00) mg/dL Diabetes panel 02/07/24 02/07/24 02/07/24 Range/Units 05:57 05:57 21:56 Sodium 137 (137-145) mmol/L Potassium 4.1 (3.5-5.1) mmol/L Chloride 109 H (98-107) mmol/L Carbon Dioxide 21 L (22-30) mmol/L BUN 31 H (9-20) mg/dL Creatinine 1.56 H (0.66-1.25) mg/dL Glucose 179 H (74-99) mg/dL Hemoglobin A1c 6.9 H (<=6.0) % Calcium 8.6 (8.4-10.2) mg/dL AST 25 (17-59) U/L ALT 13 (4-49) U/L Alkaline Phosphatase 44 (38-126) U/L Total Protein 5.2 L (6.3-8.2) g/dL Albumin 3.1 L (3.5-5.0) g/dL Triglycerides 130.00 (0.00-149.00) mg/dL HDL Cholesterol 35.80 L (40.00-60.00) mg/dL 02/08/24 Range/Units 05:49 Sodium 137 (137-145) mmol/L Potassium 4.1 (3.5-5.1) mmol/L Chloride 111 H (98-107) mmol/L Carbon Dioxide 20 L (22-30) mmol/L BUN 29 H (9-20) mg/dL Creatinine 1.45 H (0.66-1.25) mg/dL Glucose 123 H (74-99) mg/dL Hemoglobin A1c (<=6.0) % Calcium 8.5 (8.4-10.2) mg/dL AST 25 (17-59) U/L ALT 13 (4-49) U/L Alkaline Phosphatase 43 (38-126) U/L Total Protein 5.3 L (6.3-8.2) g/dL Albumin 3.1 L (3.5-5.0) g/dL Triglycerides (0.00-149.00) mg/dL HDL Cholesterol (40.00-60.00) mg/dL Thyroid panel 02/07/24 Range/Units 05:57 TSH 1.980 (0.350-5.500) UIU/ML Calcium panel 02/07/24 02/08/24 Range/Units 21:56 05:49 Calcium 8.6 8.5 (8.4-10.2) mg/dL Albumin 3.1 L 3.1 L (3.5-5.0) g/dL Pituitary panel 02/07/24 02/07/24 02/08/24 Range/Units 05:57 21:56 05:49 Sodium 137 137 (137-145) mmol/L Potassium 4.1 4.1 (3.5-5.1) mmol/L Chloride 109 H 111 H (98-107) mmol/L Carbon Dioxide 21 L 20 L (22-30) mmol/L BUN 31 H 29 H (9-20) mg/dL Creatinine 1.56 H 1.45 H (0.66-1.25) mg/dL Glucose 179 H 123 H (74-99) mg/dL Calcium 8.6 8.5 (8.4-10.2) mg/dL TSH 1.980 (0.350-5.500) UIU/ML Adrenal panel 02/07/24 02/08/24 Range/Units 21:56 05:49 Sodium 137 137 (137-145) mmol/L Potassium 4.1 4.1 (3.5-5.1) mmol/L Chloride 109 H 111 H (98-107) mmol/L Carbon Dioxide 21 L 20 L (22-30) mmol/L BUN 31 H 29 H (9-20) mg/dL Creatinine 1.56 H 1.45 H (0.66-1.25) mg/dL Glucose 179 H 123 H (74-99) mg/dL Calcium 8.6 8.5 (8.4-10.2) mg/dL Total Bilirubin 0.7 0.6 (0.2-1.3) mg/dL AST 25 25 (17-59) U/L ALT 13 13 (4-49) U/L Alkaline Phosphatase 44 43 (38-126) U/L Total Protein 5.2 L 5.3 L (6.3-8.2) g/dL Albumin 3.1 L 3.1 L (3.5-5.0) g/dL - Imaging Chest x-ray: report reviewed, image reviewed EKG: image reviewed Additional studies: Heart catheterization and JAMES results reviewed Assessment and Plan Assessment: Severe aortic stenosis, aortic valve area 0.6 cm, peak/mean gradient 53/32 mmHg, peak velocity 3.67 m/s Syncopal episode Acute on chronic heart failure with preserved ejection fraction, EF 55 to 60% Hypertension Hyperlipidemia, treated, cholesterol 155, LDL 93.2 Diabetes mellitus, hemoglobin A1c 6.9% Permanent atrial fibrillation on Coumadin for anticoagulation Severe pulmonary hypertension Chronic kidney disease stage III Chronic anemia Previous tobacco dependence Plan: The patient was seen and examined over the last couple of days to initiate TAVR workup. He was seen this morning in the intensive care unit. Chart/diagnostics reviewed. The case was discussed with Dr. Salazar, as well as information sent to the structural heart team. Patient does still need a gated TAVR CTA, however he does have chronic kidney disease requiring hydration as well as time between heart catheterization and CTA due to increased risk for contrast-induced nephropathy. He also needs bedside spirometry which he refused 3 times yesterday per respiratory therapy. In addition he needs dental clearance, will obtain Panorex and consult dentist to obtain clearance. The patient did receive Coumadin yesterday, would need to be off for several days prior to any intervention. Recommendation from CV surgery is for balloon valvuloplasty for temporization to allow to recover from acute issues with plans for TAVR in the near future. Will discuss with cardiology. More recommendations to follow. I have personally seen and examined the patient, performed the documentation and the assessment and plan as written. Number of minutes spent on the visit: 30. THOMAS BealC
[2024-02-08] MEDS: CLOPIDOGREL 75 MG TAB PO SCH (08:57)
[2024-02-08 09:02] LABS: INR 1.4 (<1.2); Prothrombin Time 14.7 sec (10.0-12.5)
--- NOTE | 2024-02-08 10:14 | P.PN ---
Subjective Progress Note Date: 02/08/24 Javon Chavira, is an 88-year-old male who presented to [facility] emergency room with a chief complaint of worsening shortness of breath, patient stated that his symptoms started 4 days ago and has been worsening, patient was recently admitted to [facility] with similar symptoms, he is followed by cardiology and had a cardiac catheterization scheduled for next week with Dr. Gilbert. He was evaluated in the emergency room vital examination on presentation revealed a temperature of 97.8 pulse 82 respiration 18 blood pressure 134/65 pulse ox 97% on room air Laboratory data reveals a white blood count of 7.7 hemoglobin 10.4 platelet count 247 INR 2.0 BUN 32 creatinine 1.34 Testing in the emergency room revealed Patient was admitted to medical floor for further evaluation and treatment On 02/05/2024 patient is alert and oriented 3. Patient to go down for cardiac catheterization this a.m. At this time patient denies chest pain or shortness breath. Patient denies nausea vomiting or diarrhea. Patient denies any urinary burning or frequency. Current vital signs temp 98.8, heart rate 81, respiratory rate 16, blood pressure 127/61 with pulse ox 97% on room air On 02/05/2025 for patient's alert and oriented 3.patient underwent cardiac catheterization yesterday which showed severe one-vessel coronary artery disease of the circumflex. Plans today for angioplasty. Patient also having low hemoglobin of 9.0. GI service is consulted. Creatinine 1.3 bun 26.2. Current vital signs temp 97.8, heart rate 70, respiratory rate 17, blood pressure 128/69 with pulse ox 96 on room air. Patient denies chest pain or shortness breath. Patient denies nausea vomiting or diarrhea. Patient denies any urinary burning or frequency' on 02/08/2024 patient is alert and oriented 3. Discharge was canceled due to syncopal episode. Patient was transferred to the intensive care unit and possible workup for inpatient have her progress. Cardiothoracic and cardiology services to evaluate patient for further plan. At this time patient is resting comfortably in bedcurrent vital signs temp 97.5, heart rate 94, respiratory rate 14, blood pressure 100/70 and pulse ox 94% on 2 L. Patient denies chest pain or shortness of breath. Patient denies nausea vomiting or diarrhea. Patient denies any urinary burning or frequency Objective - Vital Signs Vital signs: Vital Signs Temp 97.5 F L 02/08/24 05:56 Pulse 87 02/08/24 06:00 Resp 17 02/08/24 06:00 BP 104/68 02/08/24 06:00 Pulse Ox 94 L 02/08/24 06:00 FiO2 Intake & Output 02/07/24 02/08/24 02/08/24 18:59 06:59 18:59 Intake Total 236 100 Output Total 200 Balance 236 -100 Weight 80.1 kg 83.1 kg Intake: Intake, IV Titration 100 Amount Magnesium Sulfate-D5w Pmx 100 1 gm In Dextrose/Water 1 100ml.bag @ 100 mls/hr IVPB ONCE ONE Rx#: [id number] Oral 236 Output: Urine 200 Other: Voiding Method Toilet Urinal # Voids 0 - Exam In general patient is alert and oriented x 3 in no distress HEENT head normocephalic and atraumatic Neck is supple no JVD no goiter no lymphadenopathy no carotid bruit Chest examination is clear to auscultation no crackles no wheezing Cardiac exam reveals regular heart sounds S1 and S2 no gallops no murmurs Abdomen is soft nontender no organomegaly with normal bowel sounds Extremity exam reveals no edema no cyanosis or clubbing Neurological examination reveals no gross focal deficits - Labs CBC & Chem 7: 02/08/24 05:49 02/08/24 05:49 Labs: Abnormal Lab Results - Last 24 Hours (Table) 02/07/24 02/07/24 02/07/24 Range/Units 05:57 05:57 12:00 RBC (4.30-5.90) m/uL Hgb (13.0-17.5) gm/dL Hct (39.0-53.0) % MCHC (31.0-37.0) g/dL RDW (11.5-15.5) % Lymphocytes # (1.0-4.8) k/uL PT (10.0-12.5) sec INR (<1.2) Chloride (98-107) mmol/L Carbon Dioxide (22-30) mmol/L BUN (9-20) mg/dL Creatinine (0.66-1.25) mg/dL Glucose (74-99) mg/dL POC Glucose (mg/dL) 156 H (70-110) mg/dL Hemoglobin A1c 6.9 H (<=6.0) % Iron 23 L (65-175) UG/DL % Saturation 6.85 L (15.00-50.00) NT-Pro-B Natriuret Pep 40178 H (0-450) pg/mL Total Protein (6.3-8.2) g/dL Albumin (3.5-5.0) g/dL HDL Cholesterol 35.80 L (40.00-60.00) mg/dL 02/07/24 02/07/24 02/07/24 Range/Units 17:03 19:35 20:09 RBC (4.30-5.90) m/uL Hgb (13.0-17.5) gm/dL Hct (39.0-53.0) % MCHC (31.0-37.0) g/dL RDW (11.5-15.5) % Lymphocytes # (1.0-4.8) k/uL PT (10.0-12.5) sec INR (<1.2) Chloride (98-107) mmol/L Carbon Dioxide (22-30) mmol/L BUN (9-20) mg/dL Creatinine (0.66-1.25) mg/dL Glucose (74-99) mg/dL POC Glucose (mg/dL) 161 H 200 H 235 H (70-110) mg/dL Hemoglobin A1c (<=6.0) % Iron (65-175) UG/DL % Saturation (15.00-50.00) NT-Pro-B Natriuret Pep (0-450) pg/mL Total Protein (6.3-8.2) g/dL Albumin (3.5-5.0) g/dL HDL Cholesterol (40.00-60.00) mg/dL 02/07/24 02/07/24 02/08/24 Range/Units 21:56 21:56 05:49 RBC 3.13 L 3.24 L (4.30-5.90) m/uL Hgb 8.8 L D 9.0 L (13.0-17.5) gm/dL Hct 28.1 L 29.7 L (39.0-53.0) % MCHC 30.4 L (31.0-37.0) g/dL RDW 16.0 H 15.7 H (11.5-15.5) % Lymphocytes # 0.6 L (1.0-4.8) k/uL PT (10.0-12.5) sec INR (<1.2) Chloride 109 H (98-107) mmol/L Carbon Dioxide 21 L (22-30) mmol/L BUN 31 H (9-20) mg/dL Creatinine 1.56 H (0.66-1.25) mg/dL Glucose 179 H (74-99) mg/dL POC Glucose (mg/dL) (70-110) mg/dL Hemoglobin A1c (<=6.0) % Iron (65-175) UG/DL % Saturation (15.00-50.00) NT-Pro-B Natriuret Pep (0-450) pg/mL Total Protein 5.2 L (6.3-8.2) g/dL Albumin 3.1 L (3.5-5.0) g/dL HDL Cholesterol (40.00-60.00) mg/dL 02/08/24 02/08/24 Range/Units 05:49 08:29 RBC (4.30-5.90) m/uL Hgb (13.0-17.5) gm/dL Hct (39.0-53.0) % MCHC (31.0-37.0) g/dL RDW (11.5-15.5) % Lymphocytes # (1.0-4.8) k/uL PT 14.7 H (10.0-12.5) sec INR 1.4 H (<1.2) Chloride 111 H (98-107) mmol/L Carbon Dioxide 20 L (22-30) mmol/L BUN 29 H (9-20) mg/dL Creatinine 1.45 H (0.66-1.25) mg/dL Glucose 123 H (74-99) mg/dL POC Glucose (mg/dL) (70-110) mg/dL Hemoglobin A1c (<=6.0) % Iron (65-175) UG/DL % Saturation (15.00-50.00) NT-Pro-B Natriuret Pep (0-450) pg/mL Total Protein 5.3 L (6.3-8.2) g/dL Albumin 3.1 L (3.5-5.0) g/dL HDL Cholesterol (40.00-60.00) mg/dL Assessment and Plan Plan: Acute exacerbation of diastolic congestive heart failure Underlying history of permanent atrial fibrillation Underlying history of valvular heart disease with severe aortic stenosis and severe pulmonary hypertension. Patient is being assessed by cardiothoracic surgery for possible inpatient TAVR syncopal episode patient was transferred to the intensive care unit for further workup Underlying history of hypertension Underlying history of hyperlipidemia Underlying history of diabetes mellitus anemia. GI service is consulted At this time patient was admitted to telemetry floor Home medications reviewed and reordered status post angioplasty of the circumflex cardiothoracic surgery and cardiology services following Will follow closely
[2024-02-08] MEDS: NOREPINEPHRINE 4 MG in SODIUM CHLORIDE 0.9% 250 ML IV SCH (11:03)
[2024-02-08 11:54] LABS: Glucose,Whole Blood 192 mg/dL (70-110)
[2024-02-08] MEDS ORDERED: DEXTROSE 50% SYRINGE 50 ML IVP PRN ×2 (12:00)
--- NOTE | 2024-02-08 12:08 | P.CNPUL ---
History of Present Illness Consult date: 02/08/24 Requesting physician: Rosalind Amaya Reason for consult: other (ICU management) Chief complaint: Shortness of breath History of present illness: Is an [age] white male with history of severe aortic stenosis, hypertension, chronic atrial fibrillation, pulmonary hypertension, patient normally sees Dr. Gilbert on regular basis. Patient was admitted on02/03/2024, symptoms of shortness of breath that started 4 days prior and have been getting worse. It was seen by cardiology on consultation, and he was felt to have acute on chronic congestive heart failure with preserved ejection fraction and he has a history of chronic atrial fibrillation with severe aortic stenosis and severe pulmonary hypertens ion was treated with Lasix, he underwent cardiac catheterization which was supposed to be scheduled to be done on outpatient basis prior to his admission. It was found to have 30% left main 20 to 40% proximal LAD and 85% mid circumflex stenosis. Underwent PCI mid to distal circumflex 2.5 x 15 mm Xience ALEX and after the procedure on 731, patient was sent back to the cardiac floor, and he was supposed to be discharged on 02/07/2024 however the patient developed yesterday hypotension with symptoms of syncope hence arrangements were made to transfer the patient to the ICU. Was seen by cardiothoracic, and plans are in progress to potentially arrange for TAVR on this patient. I saw this patient this morning, he was hemodynamically stable, not in any distress, he had no chest pain, no shortness of breath, chest x-ray did show evidence of pulmonary edema with elevated BNP level, and I recommended gentle diuresis, Lasix 20 mg IV push. Review of Systems REVIEW OF SYSTEMS: CONSTITUTIONAL: Weakness EYES: Negative. ENT: Negative. CARDIAC: As noted in HPI mostly shortness of breath on admission PULMONARY: No cough no wheezing GI: Negative. GENITOURINARY: Negative. MUSCULOSKELETAL: Negative. SKIN: Negative. NEUROPSYCH: Intermittent episodes of lightheadedness ENDOCRINE: Negative. HEMATOLOGIC: Negative. Past Medical History Past Medical History: Atrial Fibrillation, Heart Failure, Diabetes Mellitus, Hyperlipidemia, Hypertension, Myocardial Infarction (ID), Renal Disease, Syncope Additional Past Medical History / Comment(s): Recent hospitalization for SOB, states had ID(01/14/24). Aortic stenosis Last Myocardial Infarction Date:: 01/14/24 History of Any Multi-Drug Resistant Organisms: None Reported Past Surgical History: Joint Replacement, Prostate Surgery Additional Past Surgical History / Comment(s): Right hip replacement, cataract surgery. Past Anesthesia/Blood Transfusion Reactions: No Reported Reaction Past Psychological History: No Psychological Hx Reported Smoking Status: Former smoker Past Alcohol Use History: Occasional Additional Past Alcohol Use History / Comment(s): Smoked cigars occasionally, never smoked cigarettes, quit over 30 yrs ago. Past Drug Use History: None Reported - Past Family History Mother Family Medical History: No Reported History Medications and Allergies Home Medications Medication Instructions Recorded Confirmed Type Furosemide [Lasix] 40 mg PO DAILY 05/11/18 02/03/24 History [place]-3 Fatty Acids/Fish Oil [Fish 1 cap PO DAILY 05/11/18 02/03/24 History Oil 1,000 mg Softgel] Omeprazole 20 mg PO DAILY PRN 05/11/18 02/03/24 History Pravastatin Sodium [Pravachol] 80 mg PO HS 05/11/18 02/03/24 History Warfarin Sodium [Coumadin] 2.5 mg PO DIRECTED 05/11/18 02/03/24 History glipiZIDE XL [Glucotrol XL] 10 mg PO DAILY 05/11/18 02/03/24 History metFORMIN HCL [Glucophage] 1,000 mg PO DAILY 05/11/18 02/03/24 History Glucosamine/Chondr Harmon A Sod [Osteo 1 tab PO DAILY 01/14/24 02/03/24 History Bi-Flex Caplet] amLODIPine [Norvasc] 5 mg PO DAILY 30 Days #30 tab 01/17/24 02/03/24 Rx carvediloL [Coreg*] 25 mg PO BID-W/MEALS 30 Days #60 01/17/24 02/03/24 Rx tab Aspirin 81 mg PO DAILY #30 tab 02/07/24 Rx Aspirin 81 mg PO DAILY 30 Days #30 tab 02/07/24 Rx Clopidogrel [Plavix] 75 mg PO DAILY #90 tablet 02/07/24 Rx Nitroglycerin Sl Tabs [Nitrostat] 0.4 mg SUBLINGUAL Q5M PRN 30 Days 02/07/24 Rx #25 tab Allergies Allergy/AdvReac Type Severity Reaction Status Date / Time No Known Allergies Allergy Verified 02/03/24 14:04 Physical Exam Vitals: Vital Signs Temp Pulse Pulse Resp BP BP BP 02/08/24 11:00 75 29 H 66/50 02/08/24 10:00 77 25 H 100/64 02/08/24 09:00 77 29 H 107/65 02/08/24 08:00 97.5 F L 90 15 113/63 02/08/24 07:00 89 29 H 88/64 02/08/24 06:00 87 17 104/68 02/08/24 05:56 97.5 F L 94 14 100/74 02/08/24 05:00 80 19 109/74 02/08/24 04:00 97.5 F L 84 39 H 107/60 02/08/24 03:00 91 15 120/70 02/08/24 02:00 81 22 115/70 02/08/24 01:00 87 23 113/71 02/08/24 00:01 85 13 02/08/24 00:00 96 12 118/60 02/07/24 23:50 94 22 02/07/24 23:40 87 22 02/07/24 23:30 73 28 H 02/07/24 23:20 39 H 02/07/24 23:10 90 17 02/07/24 23:00 78 20 119/65 02/07/24 22:50 74 24 02/07/24 22:40 80 02/07/24 22:10 80 23 125/72 02/07/24 21:40 72 18 120/63 02/07/24 21:10 73 17 127/66 02/07/24 20:47 14 02/07/24 20:40 57 L 20 120/62 02/07/24 20:30 78 26 H 113/65 02/07/24 20:20 78 23 108/56 02/07/24 19:55 77 18 121/57 02/07/24 19:32 81/43 02/07/24 14:45 64 12 117/69 02/07/24 14:40 88 15 103/54 02/07/24 14:15 97.5 F L 85 16 116/62 Pulse Ox 02/08/24 11:00 100 02/08/24 10:00 97 02/08/24 09:00 97 02/08/24 08:00 96 02/08/24 07:00 95 02/08/24 06:00 94 L 02/08/24 05:56 94 L 02/08/24 05:00 93 L 02/08/24 04:00 94 L 02/08/24 03:00 96 02/08/24 02:00 97 02/08/24 01:00 96 02/08/24 00:01 99 02/08/24 00:00 99 02/07/24 23:50 99 02/07/24 23:40 99 02/07/24 23:30 98 02/07/24 23:20 96 02/07/24 23:10 98 02/07/24 23:00 98 02/07/24 22:50 98 02/07/24 22:40 02/07/24 22:10 98 02/07/24 21:40 98 02/07/24 21:10 99 02/07/24 20:47 02/07/24 20:40 99 02/07/24 20:30 100 02/07/24 20:20 100 02/07/24 19:55 100 02/07/24 19:32 02/07/24 14:45 97 02/07/24 14:40 97 02/07/24 14:15 97 Intake and Output 02/07/24 02/08/24 02/08/24 22:59 06:59 14:59 Intake Total 118 100 Output Total 200 Balance 118 -100 Intake: Intake, IV Titration 100 Amount Magnesium Sulfate-D5w Pmx 100 1 gm In Dextrose/Water 1 100ml.bag @ 100 mls/hr IVPB ONCE ONE Rx#: [id number] Oral 118 Output: Urine 200 Other: Voiding Method Urinal Urinal # Voids 0 0 Weight 80.1 kg 83.1 kg CONSTITUTIONAL: Revealed 88-year-old white, comfortable, in no distress, on 2 L nasal cannula. EYES: PERRLA, EOMI, nonicteric ENT: Moist mucous membranes, unremarkable. NECK: Supple no neck masses no JVD no stridor RESPIRATORY: Diminished breath sounds at the bases no crackles rhonchi or wheezes CARDIOVASCULAR: Normal S1-S2, irregular, 3/6 systolic murmur best heard over the aortic area. GASTROINTESTINAL: Soft nontender no megaly no rebound no guarding INTEGUMENTARY: Skin is warm and dry NEUROLOGIC: Alert and oriented x 3 no gross focal deficit MUSKULOSKELETAL: No deformities and no limitation range of motion PSYCHIATRIC: Normal mood affect and normal mental status examination Results - Laboratory Findings CBC and BMP: 02/08/24 05:49 02/08/24 05:49 PT/INR, D-dimer PT 14.7 sec (10.0-12.5) H 02/08/24 08:29 INR 1.4 (<1.2) H 02/08/24 08:29 Abnormal lab findings: Abnormal Labs 02/03/24 02/03/24 02/03/24 10:56 10:56 10:56 RBC 3.63 L Hgb 10.4 L Hct 32.6 L MCHC RDW 15.9 H Lymphocytes # 0.6 L PT 20.0 H INR 2.0 H Potassium Chloride 108 H Carbon Dioxide Anion Gap BUN 32 H Creatinine 1.34 H Est GFR (CKD-EPI) BUN/Creatinine Ratio Glucose 161 H POC Glucose (mg/dL) Hemoglobin A1c Calcium Iron % Saturation Total Bilirubin 1.4 H Troponin I NT-Pro-B Natriuret Pep Total Protein 6.2 L Albumin HDL Cholesterol 02/04/24 02/04/24 02/04/24 09:40 09:40 12:07 RBC Hgb Hct MCHC RDW Lymphocytes # PT 16.2 H INR 1.6 H Potassium Chloride Carbon Dioxide Anion Gap BUN 33 H Creatinine 1.34 H Est GFR (CKD-EPI) BUN/Creatinine Ratio Glucose 147 H POC Glucose (mg/dL) 148 H Hemoglobin A1c Calcium Iron % Saturation Total Bilirubin Troponin I NT-Pro-B Natriuret Pep Total Protein Albumin HDL Cholesterol 02/04/24 02/04/24 02/05/24 17:13 20:32 03:18 RBC Hgb Hct MCHC RDW Lymphocytes # PT INR Potassium 3.4 L Chloride Carbon Dioxide Anion Gap 12.10 H BUN 31.0 H Creatinine Est GFR (CKD-EPI) 45 L BUN/Creatinine Ratio 20.67 H Glucose 126 H POC Glucose (mg/dL) 126 H 115 H Hemoglobin A1c Calcium 8.6 L Iron % Saturation Total Bilirubin Troponin I NT-Pro-B Natriuret Pep Total Protein 5.2 L Albumin 3.5 L HDL Cholesterol 02/05/24 02/05/24 02/05/24 03:18 03:18 03:18 RBC 3.21 L Hgb 9.0 L Hct 28.8 L MCHC 31.3 L RDW 16.5 H Lymphocytes # 0.81 L PT 14.8 H INR 1.40 H Potassium Chloride Carbon Dioxide Anion Gap BUN Creatinine Est GFR (CKD-EPI) BUN/Creatinine Ratio Glucose POC Glucose (mg/dL) Hemoglobin A1c Calcium Iron 16 L % Saturation 5.08 L Total Bilirubin Troponin I NT-Pro-B Natriuret Pep Total Protein Albumin HDL Cholesterol 02/05/24 02/05/24 02/05/24 06:58 12:03 16:50 RBC Hgb Hct MCHC RDW Lymphocytes # PT INR Potassium Chloride Carbon Dioxide Anion Gap BUN Creatinine Est GFR (CKD-EPI) BUN/Creatinine Ratio Glucose POC Glucose (mg/dL) 150 H 136 H 144 H Hemoglobin A1c Calcium Iron % Saturation Total Bilirubin Troponin I NT-Pro-B Natriuret Pep Total Protein Albumin HDL Cholesterol 02/05/24 02/06/24 02/06/24 20:13 04:51 04:51 RBC 3.25 L Hgb 9.1 L Hct 30.0 L MCHC 30.3 L RDW 16.3 H Lymphocytes # 0.72 L PT INR Potassium Chloride Carbon Dioxide Anion Gap BUN Creatinine Est GFR (CKD-EPI) 53 L BUN/Creatinine Ratio 20.15 H Glucose 136 H POC Glucose (mg/dL) 190 H Hemoglobin A1c Calcium 8.4 L Iron % Saturation Total Bilirubin Troponin I NT-Pro-B Natriuret Pep Total Protein 5.2 L Albumin 3.5 L HDL Cholesterol 02/06/24 02/06/24 02/06/24 04:51 05:51 12:32 RBC Hgb Hct MCHC RDW Lymphocytes # PT 13.0 H INR 1.2 H Potassium Chloride Carbon Dioxide Anion Gap BUN Creatinine Est GFR (CKD-EPI) BUN/Creatinine Ratio Glucose POC Glucose (mg/dL) 186 H 150 H Hemoglobin A1c Calcium Iron % Saturation Total Bilirubin Troponin I NT-Pro-B Natriuret Pep Total Protein Albumin HDL Cholesterol 02/06/24 02/06/24 02/07/24 17:25 20:34 05:57 RBC Hgb Hct MCHC RDW Lymphocytes # PT INR Potassium Chloride Carbon Dioxide Anion Gap BUN Creatinine Est GFR (CKD-EPI) BUN/Creatinine Ratio Glucose POC Glucose (mg/dL) 162 H 172 H Hemoglobin A1c 6.9 H Calcium Iron % Saturation Total Bilirubin Troponin I NT-Pro-B Natriuret Pep Total Protein Albumin HDL Cholesterol 02/07/24 02/07/24 02/07/24 05:57 06:02 12:00 RBC Hgb Hct MCHC RDW Lymphocytes # PT INR Potassium Chloride Carbon Dioxide Anion Gap BUN Creatinine Est GFR (CKD-EPI) BUN/Creatinine Ratio Glucose POC Glucose (mg/dL) 132 H 156 H Hemoglobin A1c Calcium Iron 23 L % Saturation 6.85 L Total Bilirubin Troponin I NT-Pro-B Natriuret Pep 73882 H Total Protein Albumin HDL Cholesterol 35.80 L 02/07/24 02/07/24 02/07/24 17:03 19:35 20:09 RBC Hgb Hct MCHC RDW Lymphocytes # PT INR Potassium Chloride Carbon Dioxide Anion Gap BUN Creatinine Est GFR (CKD-EPI) BUN/Creatinine Ratio Glucose POC Glucose (mg/dL) 161 H 200 H 235 H Hemoglobin A1c Calcium Iron % Saturation Total Bilirubin Troponin I NT-Pro-B Natriuret Pep Total Protein Albumin HDL Cholesterol 02/07/24 02/07/24 02/08/24 21:56 21:56 05:49 RBC 3.13 L 3.24 L Hgb 8.8 L D 9.0 L Hct 28.1 L 29.7 L MCHC 30.4 L RDW 16.0 H 15.7 H Lymphocytes # 0.6 L PT INR Potassium Chloride 109 H Carbon Dioxide 21 L Anion Gap BUN 31 H Creatinine 1.56 H Est GFR (CKD-EPI) BUN/Creatinine Ratio Glucose 179 H POC Glucose (mg/dL) Hemoglobin A1c Calcium Iron % Saturation Total Bilirubin Troponin I NT-Pro-B Natriuret Pep Total Protein 5.2 L Albumin 3.1 L HDL Cholesterol 02/08/24 02/08/24 02/08/24 05:49 05:49 08:29 RBC Hgb Hct MCHC RDW Lymphocytes # PT 14.7 H INR 1.4 H Potassium Chloride 111 H Carbon Dioxide 20 L Anion Gap BUN 29 H Creatinine 1.45 H Est GFR (CKD-EPI) BUN/Creatinine Ratio Glucose 123 H POC Glucose (mg/dL) Hemoglobin A1c Calcium Iron % Saturation Total Bilirubin Troponin I 0.586 H* NT-Pro-B Natriuret Pep Total Protein 5.3 L Albumin 3.1 L HDL Cholesterol 02/08/24 11:53 RBC Hgb Hct MCHC RDW Lymphocytes # PT INR Potassium Chloride Carbon Dioxide Anion Gap BUN Creatinine Est GFR (CKD-EPI) BUN/Creatinine Ratio Glucose POC Glucose (mg/dL) 192 H Hemoglobin A1c Calcium Iron % Saturation Total Bilirubin Troponin I NT-Pro-B Natriuret Pep Total Protein Albumin HDL Cholesterol - Diagnostic Findings Chest x-ray: image reviewed (As noted in HPI) Assessment and Plan Assessment: Impression: Severe aortic stenosis with peak gradient of 53 and a mean gradient of 32 Syncopal episode secondary to severe aortic stenosis Acute on chronic congestive heart failure with preserved ejection fraction Chronic atrial fibrillation Dyslipidemia Severe pulmonary hypertension secondary to his underlying valvular heart disease Chronic kidney disease stage III Chronic anemia Ex-smoker Recommendation: Continue present supportive care measures Gently diurese the patient as long as blood pressure tolerates Consider stopping blood pressure meds or at least placed on hold if blood pressure remains low/marginal Consider norepinephrine if blood pressure drops significantly and titrate accordingly Continue to monitor in the ICU Patient is being evaluated by cardiovascular surgery for balloon valvuloplasty for temporization and eventually plan for TAVR in the near future Will continue to follow this patient while in the ICU. Time with Patient: Greater than 30
[2024-02-08] MEDS: INSULIN ASPART (NovoLOG) 100 UNIT/ML VIAL SQ SCH (12:15)
[2024-02-08] MEDS: DIGOXIN 250 MCG/ML 2 ML AMP IVP ONE (12:15)
[2024-02-08] MEDS: SODIUM FERRIC GLUCONAT-SUCROSE 125 MG in SODIUM CHLORIDE 0.9% 100 ML IVPB ONE (12:56)
--- NOTE | 2024-02-08 16:08 | CT ---
EXAMINATION TYPE: CT facial bones wo con DATE OF EXAM: 02/08/2024 COMPARISON: None HISTORY: 88-year-old male preop valve surgery TECHNIQUE: Contiguous axial scanning of the facial bones without IV contrast. Coronal reconstructions performed. A Panorex view is included. CT DLP: 616.3 mGycm Automated exposure control for dose reduction was used. FINDINGS: Scattered dental amalgam. Small dental caries are noted especially along the anterior maxillary teeth . Also involving a left mandibular molar. More anterior left mandibular molars are absent. A right ma xillary premolar is absent. The right mandibular first premolar and right mandibular first molar both show some periapical lucenc y measuring up to 1 mm. The TMJs appear intact. Rightward nasal septal deviation. Mild mucosal thickening left maxillary sinu s and ethmoid air cells. Either moderate mucosal thickening posteriorly in right sphenoid sinus or a small air-fluid level. Cerumen in right external auditory canal. Mastoid air cells well pneumatized. Mild generalized supratentorial volume loss. IMPRESSION: 1. SCATTERED DENTAL AMALGAM AND SMALL DENTAL CARIES ESPECIALLY ALONG THE ANTERIOR MAXILLARY TEETH AND THE LEFT MANDIBULAR MOLAR. 2. THE RIGHT MANDIBULAR FIRST PREMOLAR AND RIGHT MANDIBULAR FIRST MOLAR BOTH SHOW SOME PERIAPICAL PEPE ENCY MEASURING UP TO 1 MM. 3. EITHER MODERATE MUCOSAL THICKENING ALONG THE POSTERIOR WALL OF THE RIGHT SPHENOID SINUS VERSUS A S MALL AIR-FLUID LEVEL. MILD CHRONIC LEFT MAXILLARY AND ETHMOID SINUS DISEASE. 4. RIGHTWARD NASAL SEPTAL DEVIATION.
[2024-02-08 16:51] LABS: Glucose,Whole Blood 127 mg/dL (70-110)
[2024-02-08] MEDS: carvediloL 6.25 MG TAB PO SCH (17:39)
--- NOTE | 2024-02-08 19:11 | CA ---
Transthoracic Echo Report Name: Javon Chavira Age: 88 Gender: M : 1935 Exam Date: 02/08/2024 14:34 Exam Location: [facility] Ht (in): 66 Wt (lb): 183 Ordering Physician: Kobe Campos DO ([email or web address]) Attending/Referring Phys: Tour Consultant Yin Patricio RDCS Procedure CPT: Indications: re: hypotension, aortic stenosis Cardiac Hx: Technical Quality: Technically difficult study Contrast 1: Definity Total Dose (mL): 2 Contrast 2: Total Dose (mL): MEASUREMENTS (Male / Female) Normal Values 2D ECHO LV Diastolic Volume MOD BP 128.5 cm??? 67 - 155 / 56 - 104 cm??? LV Systolic Volume MOD BP 66.8 cm??? 22 - 58 / 19 - 49 cm??? LV Ejection Fraction MOD BP 48.0 % >= 55 % LV Cardiac Index MOD BP 2947.5 cm???/min???m??? LV Diastolic Volume MOD 4C 118.0 cm??? LV Systolic Volume MOD 4C 69.6 cm??? LV Ejection Fraction MOD 4C 41.0 % LV Cardiac Index MOD 4C 2311.2 cm???/min???m??? LV Diastolic Length 4C 7.8 cm LV Systolic Length 4C 7.3 cm LV Diastolic Volume MOD 2C 124.3 cm??? LV Systolic Volume MOD 2C 63.6 cm??? LV Ejection Fraction MOD 2C 48.8 % LV Cardiac Index MOD 2C 2894.7 cm???/min???m??? LV Diastolic Length 2C 8.9 cm LV Systolic Length 2C 7.5 cm DOPPLER AV Peak Velocity 417.1 cm/s AV Peak Gradient 69.6 mmHg AV Mean Velocity 310.6 cm/s AV Mean Gradient 42.9 mmHg AV Velocity Time Integral 103.6 cm TV Peak Velocity 450.4 cm/s TV Peak Gradient 81.1 mmHg Right Atrial Pressure 15.0 mmHg FINDINGS Left Ventricle Left ventricular ejection fraction is estimated at 45-50 %. Mildly increased left ventricular systolic volume. Mildly decreased left ventricular ejection fraction. Left ventricular wall thickness normal. Right Ventricle Normal right ventricular size with mild to moderately reduced function. Severe pulmonary hypertension. Right Atrium Right atrial dilatation. Left Atrium Left atrial dilatation. Mitral Valve Mitral valve thickened. No evidence for mitral valve prolapse. Moderate-to- severe mitral regurgitation. Aortic Valve Aortic valve not well visualized. Moderate to severe aortic stenosis. Post ectopic mean gradient 48mmHg. No aortic regurgitation. Tricuspid Valve Structurally normal tricuspid valve. No tricuspid stenosis. Moderate tricuspid regurgitation. Pulmonic Valve Structurally normal pulmonic valve. No pulmonic stenosis. Trace pulmonic regurgitation. Pericardium Small pericardial effusion. Aorta CONCLUSIONS Diagnosis: Severe aortic stenosis and recurrent syncope, CAD status post coronary stenting Preserved LV systolic function Small pericardial effusion with thickened pericardium Calcific aortic stenosis, severe peak gradient at least 48 mmHg Previewed by: Dr. Oswaldo Barrios MD (Electronically Signed) Final Date: 08 February 2024 19:11
[2024-02-08 19:17] LABS: Appearance,Urine Clear (Clear); Bilirubin,Urine Negative (Negative); Blood,Urine Negative (Negative); Color,Urine Yellow; Glucose,Urine (UA) Negative (Negative); Ketones,Urine Negative (Negative); Leukocyte Esterase,Urine Negative (Negative); Mucus,Urine Rare /hpf; Nitrite,Urine Negative (Negative); PH, Urine 5.5 (5.0-8.0); Protein,Urine 1+ (Negative); Specific Gravity,Urine 1.024 (1.001-1.035); Urobilinogen,Urine <2.0 mg/dL (<2.0); WBC,Urine 1 /hpf (0-5)
--- NOTE | 2024-02-08 21:17 | P.PN ---
Subjective Progress Note Date: 02/08/24 Yesterday patient was about to be discharged when he bent forward and had a syncopal episode. Since then patient has been having low blood pressure. He has been transferred to the ICU since. Impression Coronary artery disease status post stenting to the distal circumflex yesterday Hypertension, cardiogenic shock Severe symptomatic aortic stenosis Moderate to severe mitral regurgitation Atrial fibrillation CKD Plan I reviewed patient's echocardiogram which showed moderate to severe mitral regurgitation, severe aortic stenosis. On review of his JAMES, his aortic valve is severely calcified but is still opening. His mean gradient was calculated around 35 to 40 mmHg. He is symptomatic from his severe aortic stenosis I will stop all arterial dilators therefore we will stop amlodipine I will reduce his Coreg. Eventually will consider stopping Coreg and starting metoprolol for rate control. I would start digoxin 0.125 mcg every other day (every other day due to poor renal function) for better rate controlled and better cardiac output without dropping blood pressure Will evaluate the patient for possible balloon valvuloplasty or urgent TAVR. I personally feel that balloon valvuloplasty might worsen patient's hemodynamics as it would lead to aortic regurgitation. AR in combination with severe mitral regurgitation and his atrial fibrillation might not be the best for his hem odynamics and overall outcome Continue aspirin and Plavix. His warfarin is on hold for any anticipated procedures. Objective - Vital Signs Vital signs: Vital Signs Temp 97.5 F L 02/08/24 16:00 Pulse 82 02/08/24 19:00 Resp 21 02/08/24 19:00 BP 88/66 02/08/24 19:00 Pulse Ox 95 02/08/24 19:00 FiO2 Intake & Output 02/08/24 02/08/24 02/09/24 06:59 18:59 06:59 Intake Total 100 653.243 10 Output Total 200 225 Balance -100 428.243 10 Weight 83.1 kg Intake: IV 120 10 0.9NS 120 10 Intake, IV Titration 100 133.243 Amount Magnesium Sulfate-D5w Pmx 100 1 gm In Dextrose/Water 1 100ml.bag @ 100 mls/hr IVPB ONCE ONE Rx#: [id number] Norepinephrine 4 mg In 33.243 Sodium Chloride 0.9% 250 ml @ 0.03 MCG/KG/MIN 9. 498 mls/hr IV .Q24H [facility] Rx#:[id number] Sodium Ferric Gluconat- 100 Sucrose 125 mg In Sodium Chloride 0.9% 100 ml @ 100 mls/hr IVPB ONCE ONE Rx#:[id number] Oral 400 Output: Urine 200 225 Other: Voiding Method Urinal Urinal # Voids 0 # Bowel Movements 1 - Labs CBC & Chem 7: 02/08/24 05:49 02/08/24 05:49 Labs: Abnormal Lab Results - Last 24 Hours (Table) 02/07/24 02/07/24 02/08/24 Range/Units 21:56 21:56 05:49 RBC 3.13 L 3.24 L (4.30-5.90) m/uL Hgb 8.8 L D 9.0 L (13.0-17.5) gm/dL Hct 28.1 L 29.7 L (39.0-53.0) % MCHC 30.4 L (31.0-37.0) g/dL RDW 16.0 H 15.7 H (11.5-15.5) % Lymphocytes # 0.6 L (1.0-4.8) k/uL PT (10.0-12.5) sec INR (<1.2) Chloride 109 H (98-107) mmol/L Carbon Dioxide 21 L (22-30) mmol/L BUN 31 H (9-20) mg/dL Creatinine 1.56 H (0.66-1.25) mg/dL Glucose 179 H (74-99) mg/dL POC Glucose (mg/dL) (70-110) mg/dL Troponin I (0.000-0.034) ng/mL Total Protein 5.2 L (6.3-8.2) g/dL Albumin 3.1 L (3.5-5.0) g/dL Urine Protein (Negative) Urine Mucus (None) /hpf 02/08/24 02/08/24 02/08/24 Range/Units 05:49 05:49 08:29 RBC (4.30-5.90) m/uL Hgb (13.0-17.5) gm/dL Hct (39.0-53.0) % MCHC (31.0-37.0) g/dL RDW (11.5-15.5) % Lymphocytes # (1.0-4.8) k/uL PT 14.7 H (10.0-12.5) sec INR 1.4 H (<1.2) Chloride 111 H (98-107) mmol/L Carbon Dioxide 20 L (22-30) mmol/L BUN 29 H (9-20) mg/dL Creatinine 1.45 H (0.66-1.25) mg/dL Glucose 123 H (74-99) mg/dL POC Glucose (mg/dL) (70-110) mg/dL Troponin I 0.586 H* (0.000-0.034) ng/mL Total Protein 5.3 L (6.3-8.2) g/dL Albumin 3.1 L (3.5-5.0) g/dL Urine Protein (Negative) Urine Mucus (None) /hpf 02/08/24 02/08/24 02/08/24 Range/Units 11:53 14:33 15:10 RBC (4.30-5.90) m/uL Hgb (13.0-17.5) gm/dL Hct (39.0-53.0) % MCHC (31.0-37.0) g/dL RDW (11.5-15.5) % Lymphocytes # (1.0-4.8) k/uL PT (10.0-12.5) sec INR (<1.2) Chloride (98-107) mmol/L Carbon Dioxide (22-30) mmol/L BUN (9-20) mg/dL Creatinine (0.66-1.25) mg/dL Glucose (74-99) mg/dL POC Glucose (mg/dL) 192 H (70-110) mg/dL Troponin I 0.532 H* (0.000-0.034) ng/mL Total Protein (6.3-8.2) g/dL Albumin (3.5-5.0) g/dL Urine Protein 1+ H (Negative) Urine Mucus Rare H (None) /hpf 02/08/24 Range/Units 16:49 RBC (4.30-5.90) m/uL Hgb (13.0-17.5) gm/dL Hct (39.0-53.0) % MCHC (31.0-37.0) g/dL RDW (11.5-15.5) % Lymphocytes # (1.0-4.8) k/uL PT (10.0-12.5) sec INR (<1.2) Chloride (98-107) mmol/L Carbon Dioxide (22-30) mmol/L BUN (9-20) mg/dL Creatinine (0.66-1.25) mg/dL Glucose (74-99) mg/dL POC Glucose (mg/dL) 127 H (70-110) mg/dL Troponin I (0.000-0.034) ng/mL Total Protein (6.3-8.2) g/dL Albumin (3.5-5.0) g/dL Urine Protein (Negative) Urine Mucus (None) /hpf Microbiology - Last 24 Hours (Table) 02/07/24 06:05 Nasal Screen MRSA/MSSA - Final Nasal Swab
[2024-02-08 23:42] LABS: Glucose,Whole Blood 126 mg/dL (70-110)
[2024-02-09 05:56] LABS: Glucose,Whole Blood 94 mg/dL (70-110)
[2024-02-09 06:42] LABS: INR 1.4 (<1.2); Prothrombin Time 14.3 sec (10.0-12.5)
--- NOTE | 2024-02-09 10:06 | XR ---
EXAM: XR chest 1V portable CLINICAL INDICATION:Male, 88 years old with history of chf; [facility] COMPARISON: 02/08/2024 TECHNIQUE: Chest single view. FINDINGS: Lines/tubes/devices: EKG leads overlie the chest. No indwelling lines are seen. Cardiomediastinum: Cardiac silhouette appears stably enlarged Stable mediastinal silhouette. Moderate to heavy atherosclerotic calcification of the aorta. Vasculature: Decreased pulmonary vascular congestion, perihilar interstitial and alveolar opacities. Lungs/pleura: No new or worsening consolidation, sizeable effusion, or visible pneumothorax. There seem to be small pleural effusions which are likely similar to previous. There is no evidence of pneumothorax. Bones/soft tissues: Bony thorax appears grossly intact with degenerative changes of the spine and shoulders noted. Region al soft tissues appear unremarkable. IMPRESSION: Cardiomegaly redemonstrated, with improved opacities likely on the basis of improving CHF with small residual pleural effusions.
[2024-02-09] MEDS: METOPROLOL TARTRATE 12.5 MG TAB PO SCH (10:38)
--- NOTE | 2024-02-09 10:38 | P.PN ---
Subjective Progress Note Date: 02/09/24 Principal diagnosis: Severe aortic stenosis and syncope 88-year-old white male with history of severe aortic stenosis, hypertension, chronic atrial fibrillation, pulmonary hypertension, patient normally sees Dr. Gilbert on regular basis. Patient was admitted on02/03/2024, symptoms of shortness of breath that started 4 days prior and have been getting worse. It was seen by cardiology on consultation, and he was felt to have acute on chronic congestive heart failure with preserved ejection fraction and he has a history of chronic atrial fibrillation with severe aortic stenosis and severe pulmonary hypertension was treated with Lasix, he underwent cardiac catheterization which was supposed to be scheduled to be done on outpatient basis prior to his admission. It was found to have 30% left main 20 to 40% proximal LAD and 85% mid circumflex stenosis. Underwent PCI mid to distal circumflex 2.5 x 15 mm Xience ALEX and after the procedure on 73, patient was sent back to the cardiac floor, and he was supposed to be discharged on 02/07/2024 however the patient developed yesterday hypotension with symptoms of syncope hence arrangements were made to transfer the patient to the ICU. Was seen by cardiothoracic, and plans are in progress to potentially arrange for TAVR on this patient. I saw this patient this morning, he was hemodynamically stable, not in any distress, he had no chest pain, no shortness of breath, chest x-ray did show evidence of pulmonary edema with elevated BNP level, and I recommended gentle diuresis, Lasix 20 mg IV push. Patient was seen and examined today on 02/09/2024, patient remains in the ICU, required a brief. Of norepinephrine for low blood pressure. Patient is now off norepinephrine and his blood pressure seems to be holding. However the patient may have to be placed on beta-blockers this morning and that may drop his blood pressure again. Patient is on 4 L nasal cannula, not in distress, chest x-ray this morning showed improvement in his pulmonary edema, however have a small tiny right-sided pleural effusion but his pulmonary edema is significantly improved. Patient did receive Lasix yesterday. Final decision about balloon valvuloplasty is yet to be made, patient will eventually require TAVR. Patient remains off warfarin, anticoagulation therapy is being addressed by cardiology on the case. Pulmonary yusuf the patient is feeling better breathing easier, and he is much better today compared to yesterday. Objective - Vital Signs Vital signs: Vital Signs Temp 96.7 F L 02/09/24 04:00 Pulse 71 02/09/24 07:00 Resp 23 02/09/24 07:00 BP 99/57 02/09/24 07:00 Pulse Ox 93 L 02/09/24 07:00 FiO2 Intake & Output 02/08/24 02/09/24 02/09/24 18:59 06:59 18:59 Intake Total 653.243 467.407 10 Output Total 225 Balance 428.243 467.407 10 Weight 82.2 kg Intake: IV 120 120 10 0.9NS 120 120 10 Intake, IV Titration 133.243 97.407 0 Amount Norepinephrine 4 mg In 33.243 97.407 0 Sodium Chloride 0.9% 250 ml @ 0.03 MCG/KG/MIN 9. 498 mls/hr IV .Q24H [facility] Rx#:[id number] Sodium Ferric Gluconat- 100 Sucrose 125 mg In Sodium Chloride 0.9% 100 ml @ 100 mls/hr IVPB ONCE ONE Rx#:[id number] Oral 400 250 Output: Urine 225 Other: Voiding Method Urinal Urinal # Bowel Movements 1 - Exam CONSTITUTIONAL: Revealed 88-year-old white, comfortable, in no distress, on 4 L nasal cannula. EYES: PERRLA, EOMI, nonicteric ENT: Moist mucous membranes, unremarkable. NECK: Supple no neck masses no JVD no stridor RESPIRATORY: Diminished breath sounds at the bases no crackles rhonchi or wheezes CARDIOVASCULAR: Normal S1-S2, irregular, 3/6 systolic murmur best heard over the aortic area. GASTROINTESTINAL: Soft nontender no megaly no rebound no guarding INTEGUMENTARY: Skin is warm and dry NEUROLOGIC: Alert and oriented x 3 no gross focal deficit MUSKULOSKELETAL: No deformities and no limitation range of motion PSYCHIATRIC: Normal mood affect and normal mental status examination - Labs CBC & Chem 7: 02/08/24 05:49 02/08/24 05:49 Labs: Abnormal Lab Results - Last 24 Hours (Table) 02/08/24 02/08/24 02/08/24 Range/Units 05:49 11:53 14:33 PT (10.0-12.5) sec INR (<1.2) POC Glucose (mg/dL) 192 H (70-110) mg/dL Troponin I 0.586 H* 0.532 H* (0.000-0.034) ng/mL Urine Protein (Negative) Urine Mucus (None) /hpf 02/08/24 02/08/24 02/08/24 Range/Units 15:10 16:49 23:41 PT (10.0-12.5) sec INR (<1.2) POC Glucose (mg/dL) 127 H 126 H (70-110) mg/dL Troponin I (0.000-0.034) ng/mL Urine Protein 1+ H (Negative) Urine Mucus Rare H (None) /hpf 02/09/24 Range/Units 05:47 PT 14.3 H (10.0-12.5) sec INR 1.4 H (<1.2) POC Glucose (mg/dL) (70-110) mg/dL Troponin I (0.000-0.034) ng/mL Urine Protein (Negative) Urine Mucus (None) /hpf Microbiology - Last 24 Hours (Table) 02/07/24 06:05 Nasal Screen MRSA/MSSA - Final Nasal Swab Assessment and Plan Assessment: Impression: Severe aortic stenosis with peak gradient of 53 and a mean gradient of 32 Syncopal episode secondary to severe aortic stenosis Acute on chronic congestive heart failure with preserved ejection fraction, chest x-ray showed significant improvement today compared to yesterday. Chronic atrial fibrillation Dyslipidemia Severe pulmonary hypertension secondary to his underlying valvular heart disease Chronic kidney disease stage III Chronic anemia Ex-smoker Recommendation: Continue present supportive care measures No need for Lasix today since chest x-ray is showing significant improvement in his pulmonary edema Etiology to address his blood pressure medication, may need to be adjusted as the patient is running a relatively low blood pressure Norepinephrine if felt to be needed Continue to monitor in the ICU Balloon valvuloplasty and TAVR are being addressed by cardiothoracic surgery and cardiology Will continue to follow Time with Patient: Less than 30
[2024-02-09] MEDS: PANTOPRAZOLE 40 MG TABLET PO SCH (11:20)
[2024-02-09] MEDS: DIGOXIN 250 MCG/ML 2 ML AMP IVP SCH (11:21)
[2024-02-09 11:39] LABS: Glucose,Whole Blood 158 mg/dL (70-110)
--- NOTE | 2024-02-09 14:19 | P.PN ---
Subjective Progress Note Date: 02/09/24 Javon Chavira, is an 88-year-old male who presented to [facility] emergency room with a chief complaint of worsening shortness of breath, patient stated that his symptoms started 4 days ago and has been worsening, patient was recently admitted to [facility] with similar symptoms, he is followed by cardiology and had a cardiac catheterization scheduled for next week with Dr. Gilbert. He was evaluated in the emergency room vital examination on presentation revealed a temperature of 97.8 pulse 82 respiration 18 blood pressure 134/65 pulse ox 97% on room air Laboratory data reveals a white blood count of 7.7 hemoglobin 10.4 platelet count 247 INR 2.0 BUN 32 creatinine 1.34 Testing in the emergency room revealed Patient was admitted to medical floor for further evaluation and treatment On 02/05/2024 patient is alert and oriented 3. Patient to go down for cardiac catheterization this a.m. At this time patient denies chest pain or shortness breath. Patient denies nausea vomiting or diarrhea. Patient denies any urinary burning or frequency. Current vital signs temp 98.8, heart rate 81, respiratory rate 16, blood pressure 127/61 with pulse ox 97% on room air On 02/05/2025 for patient's alert and oriented 3.patient underwent cardiac catheterization yesterday which showed severe one-vessel coronary artery disease of the circumflex. Plans today for angioplasty. Patient also having low hemoglobin of 9.0. GI service is consulted. Creatinine 1.3 bun 26.2. Current vital signs temp 97.8, heart rate 70, respiratory rate 17, blood pressure 128/69 with pulse ox 96 on room air. Patient denies chest pain or shortness breath. Patient denies nausea vomiting or diarrhea. Patient denies any urinary burning or frequency' on 02/08/2024 patient is alert and oriented 3. Discharge was canceled due to syncopal episode. Patient was transferred to the intensive care unit and possible workup for inpatient have her progress. Cardiothoracic and cardiology services to evaluate patient for further plan. At this time patient is resting comfortably in bedcurrent vital signs temp 97.5, heart rate 94, respiratory rate 14, blood pressure 100/70 and pulse ox 94% on 2 L. Patient denies chest pain or shortness of breath. Patient denies nausea vomiting or diarrhea. Patient denies any urinary burning or frequency On 02/09/2024 patient was seen and examined in the ICU he is alert and oriented x 3 in no apparent distress, vital examination reveals a temperature of 97.4 pulse 82 respiration 26 blood pressure 92/57 pulse ox 96% on 3 L nasal cannula, Coum tamar is on hold in anticipation of cardiovascular intervention. Awaiting plan per thoracic surgery. Objective - Vital Signs Vital signs: Vital Signs Temp 97.4 F L 02/09/24 12:00 Pulse 77 02/09/24 13:00 Resp 24 02/09/24 13:00 BP 97/60 02/09/24 13:00 Pulse Ox 94 L 02/09/24 13:00 FiO2 Intake & Output 02/08/24 02/09/24 02/09/24 18:59 06:59 18:59 Intake Total 653.243 467.407 482.664 Output Total 225 175 Balance 428.243 467.407 307.664 Weight 82.2 kg Intake: IV 120 120 70 0.9NS 120 120 70 Intake, IV Titration 133.243 97.407 12.664 Amount Norepinephrine 4 mg In 33.243 97.407 12.664 Sodium Chloride 0.9% 250 ml @ 0.03 MCG/KG/MIN 9. 498 mls/hr IV .Q24H [facility] Rx#:[id number] Sodium Ferric Gluconat- 100 Sucrose 125 mg In Sodium Chloride 0.9% 100 ml @ 100 mls/hr IVPB ONCE ONE Rx#:[id number] Oral 400 250 400 Output: Urine 225 175 Other: Voiding Method Urinal Urinal Urinal # Bowel Movements 1 - Exam In general patient is alert and oriented x 3 in no distress HEENT head normocephalic and atraumatic Neck is supple no JVD no goiter no lymphadenopathy no carotid bruit Chest examination is clear to auscultation no crackles no wheezing Cardiac exam reveals regular heart sounds S1 and S2 no gallops no murmurs Abdomen is soft nontender no organomegaly with normal bowel sounds Extremity exam reveals no edema no cyanosis or clubbing Neurological examination reveals no gross focal deficits - Labs CBC & Chem 7: 02/08/24 05:49 02/08/24 05:49 Labs: Abnormal Lab Results - Last 24 Hours (Table) 02/08/24 02/08/24 02/08/24 Range/Units 14:33 15:10 16:49 PT (10.0-12.5) sec INR (<1.2) POC Glucose (mg/dL) 127 H (70-110) mg/dL Troponin I 0.532 H* (0.000-0.034) ng/mL Urine Protein 1+ H (Negative) Urine Mucus Rare H (None) /hpf 02/08/24 02/09/24 02/09/24 Range/Units 23:41 05:47 11:37 PT 14.3 H (10.0-12.5) sec INR 1.4 H (<1.2) POC Glucose (mg/dL) 126 H 158 H (70-110) mg/dL Troponin I (0.000-0.034) ng/mL Urine Protein (Negative) Urine Mucus (None) /hpf Microbiology - Last 24 Hours (Table) 02/07/24 06:05 Nasal Screen MRSA/MSSA - Final Nasal Swab Assessment and Plan Plan: Acute exacerbation of diastolic congestive heart failure Underlying history of permanent atrial fibrillation Underlying history of valvular heart disease with severe aortic stenosis and severe pulmonary hypertension. Patient is being assessed by cardiothoracic surgery for possible inpatient TAVR syncopal episode patient was transferred to the intensive care unit for further workup Underlying history of hypertension Underlying history of hyperlipidemia Underlying history of diabetes mellitus anemia. GI service is consulted At this time patient was admitted to telemetry floor Home medications reviewed and reordered status post angioplasty of the circumflex cardiothoracic surgery and cardiology services following Will follow closely
[2024-02-09] MEDS ORDERED: HEPARIN SODIUM 1,000 UN/ML (10ML VL) IV PRN (16:22)
--- NOTE | 2024-02-09 16:36 | P.PN ---
Subjective Progress Note Date: 02/09/24 February 08, 2024 Yesterday patient was about to be discharged when he bent forward and had a syncopal episode. Since then patient has been having low blood pressure. He has been transferred to the ICU since. February 09, 2024 Patient was seen and examined at bedside today. He is off norepinephrine. Blood pressure is better. He has a better color on his face today. Denies any further lightheadedness or dizziness. 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 On review of his JAMES, his aortic valve is severely calcified but is still opening. His mean gradient was calculated around 42 mmHg. Start IV heparin drip. Hold warfarin for any anticipated procedures Discontinue all antihypertensives including amlodipine and metoprolol Continue digoxin for rate control for atrial fibrillation and for positive chronotropic effect at 0.125 mcg per day Monitor renal function, if renal function declines, consider reducing dose of digoxin to every other day Will evaluate the patient for possible balloon valvuloplasty or urgent TAVR. I personally feel that balloon valvuloplasty might worsen patient's hemodynamics as it would lead to aortic regurgitation. AR in combination with severe mitral regurgitation and his atrial fibrillation might not be the best for his hemodynamics and overall outcome Continue aspirin and Plavix. Monitor hemoglobin levels. Obtain orthostatic vital signs tomorrow. If stable, consider downgrading from ICU tomorrow Objective - Vital Signs Vital signs: Vital Signs Temp 97.4 F L 02/09/24 12:00 Pulse 76 02/09/24 15:00 Resp 19 02/09/24 15:00 BP 111/65 02/09/24 15:00 Pulse Ox 95 02/09/24 15:00 FiO2 Intake & Output 02/08/24 02/09/24 02/09/24 18:59 06:59 18:59 Intake Total 653.243 467.407 652.664 Output Total 225 175 Balance 428.243 467.407 477.664 Weight 82.2 kg Intake: IV 120 120 90 0.9NS 120 120 90 Intake, IV Titration 133.243 97.407 12.664 Amount Norepinephrine 4 mg In 33.243 97.407 12.664 Sodium Chloride 0.9% 250 ml @ 0.03 MCG/KG/MIN 9. 498 mls/hr IV .Q24H [facility] Rx#:[id number] Sodium Ferric Gluconat- 100 Sucrose 125 mg In Sodium Chloride 0.9% 100 ml @ 100 mls/hr IVPB ONCE ONE Rx#:[id number] Oral 400 250 550 Output: Urine 225 175 Other: Voiding Method Urinal Urinal Urinal # Bowel Movements 1 - Labs CBC & Chem 7: 02/08/24 05:49 02/08/24 05:49 Labs: Abnormal Lab Results - Last 24 Hours (Table) 02/08/24 02/08/24 02/08/24 Range/Units 15:10 16:49 23:41 PT (10.0-12.5) sec INR (<1.2) POC Glucose (mg/dL) 127 H 126 H (70-110) mg/dL Urine Protein 1+ H (Negative) Urine Mucus Rare H (None) /hpf 02/09/24 02/09/24 Range/Units 05:47 11:37 PT 14.3 H (10.0-12.5) sec INR 1.4 H (<1.2) POC Glucose (mg/dL) 158 H (70-110) mg/dL Urine Protein (Negative) Urine Mucus (None) /hpf
[2024-02-09] MEDS: HEPARIN SOD,PORK IN 0.45% NACL 25,000 UNIT in 0.45% NACL 1 250ML.BAG IV SCH (16:40)
[2024-02-09 16:57] LABS: Glucose,Whole Blood 186 mg/dL (70-110)
[2024-02-10 00:35] LABS: Glucose,Whole Blood 156 mg/dL (70-110)
[2024-02-10 05:11] LABS: Glucose,Whole Blood 126 mg/dL (70-110)
[2024-02-10 05:27] LABS: Anisocytosis Slight; Basophils % (A) 0 %; Eosinophils # (A) 0.1 k/uL (0-0.7); Eosinophils % (A) 1 %; HCT 28.4 % (39.0-53.0); HGB 9.1 gm/dL (13.0-17.5); Hypochromasia Marked; Lymphocytes # (A) 1.1 k/uL (1.0-4.8); Lymphocytes % (A) 13 %; MCH 28.7 pg (25.0-35.0); MCV 89.7 fL (80.0-100.0); Mean Platelet Volume 9.7; Monocytes # (A) 0.7 k/uL (0-1.0); Monocytes % (A) 8 %; Neutrophils # (A) 6.5 k/uL (1.3-7.7); Neutrophils % (A) 77 %; Platelet Count 230 k/uL (150-450); RBC 3.17 m/uL (4.30-5.90); RDW 16.2 % (11.5-15.5); WBC 8.5 k/uL (3.8-10.6)
[2024-02-10 07:34] LABS: INR 1.6 (<1.2); Prothrombin Time 16.4 sec (10.0-12.5)
[2024-02-10] MEDS: DIGOXIN 125 MCG TAB PO SCH (08:09)
--- NOTE | 2024-02-10 10:21 | P.PN ---
Subjective Progress Note Date: 02/10/24 Principal diagnosis: Severe aortic stenosis and syncope 88-year-old white male with history of severe aortic stenosis, hypertension, chronic atrial fibrillation, pulmonary hypertension, patient normally sees Dr. Gilbert on regular basis. Patient was admitted on02/03/2024, symptoms of shortness of breath that started 4 days prior and have been getting worse. It was seen by cardiology on consultation, and he was felt to have acute on chronic congestive heart failure with preserved ejection fraction and he has a history of chronic atrial fibrillation with severe aortic stenosis and severe pulmonary hypertension was treated with Lasix, he underwent cardiac catheterization which was supposed to be scheduled to be done on outpatient basis prior to his admission. It was found to have 30% left main 20 to 40% proximal LAD and 85% mid circumflex stenosis. Underwent PCI mid to distal circumflex 2.5 x 15 mm Xience ALEX and after the procedure on 73, patient was sent back to the cardiac floor, and he was supposed to be discharged on 02/07/2024 however the patient developed yesterday hypotension with symptoms of syncope hence arrangements were made to transfer the patient to the ICU. Was seen by cardiothoracic, and plans are in progress to potentially arrange for TAVR on this patient. I saw this patient this morning, he was hemodynamically stable, not in any distress, he had no chest pain, no shortness of breath, chest x-ray did show evidence of pulmonary edema with elevated BNP level, and I recommended gentle diuresis, Lasix 20 mg IV push. Patient was seen and examined today on 02/09/2024, patient remains in the ICU, required a brief. Of norepinephrine for low blood pressure. Patient is now off norepinephrine and his blood pressure seems to be holding. However the patient may have to be placed on beta-blockers this morning and that may drop his blood pressure again. Patient is on 4 L nasal cannula, not in distress, chest x-ray this morning showed improvement in his pulmonary edema, however have a small tiny right-sided pleural effusion but his pulmonary edema is significantly improved. Patient did receive Lasix yesterday. Final decision about balloon valvuloplasty is yet to be made, patient will eventually require TAVR. Patient remains off warfarin, anticoagulation therapy is being addressed by cardiology on the case. Pulmonary yusuf the patient is feeling better breathing easier, and he is much better today compared to yesterday. Was evaluated today on 02/10/2024, remains in the ICU, off norepinephrine, on 4 L nasal cannula, on heparin, patient is hemodynamically stable, not in any distress, denies any cough wheezing or shortness of breath. Apparently cardiology not recommending balloon valvuloplasty on this patient, would like to optimize the patient's cardiac status, and eventually have TAVR on outpatient basis in the near future. In the meantime the patient is actually getting better breathing easier, not in any distress, and he is hemodynamically stable with relatively normal labs WBC count is 8.5 hemoglobin 9.1, PTT is therapeutic. Patient will be transferred to a monitor bed and selective once a bed is available. Objective - Vital Signs Vital signs: Vital Signs Temp 97.5 F L 02/10/24 08:00 Pulse 80 02/10/24 08:00 Resp 26 H 02/10/24 08:00 BP 112/67 02/10/24 08:00 Pulse Ox 92 L 02/10/24 08:00 FiO2 Intake & Output 02/09/24 02/10/24 02/10/24 18:59 06:59 18:59 Intake Total 782.664 561.571 313.429 Output Total 295 450 Balance 487.664 111.571 313.429 Weight 82.1 kg Intake: IV 120 120 20 0.9NS 120 120 20 Intake, IV Titration 12.664 91.571 43.429 Amount Heparin Sod,Pork in 0.45% 91.571 43.429 NaCl 25,000 unit In 0.45 % NaCl 1 250ml.bag @ 12 UNITS/KG/HR 9.864 mls/hr IV .Q24H [facility] Rx#: [id number] Norepinephrine 4 mg In 12.664 Sodium Chloride 0.9% 250 ml @ 0.03 MCG/KG/MIN 9. 498 mls/hr IV .Q24H [facility] Rx#:[id number] Oral 650 350 250 Output: Urine 295 450 Other: Voiding Method Urinal Urinal Urinal - Exam CONSTITUTIONAL: Revealed 88-year-old white, comfortable, in no distress, on 4 L nasal cannula. EYES: PERRLA, EOMI, nonicteric ENT: Moist mucous membranes, unremarkable. NECK: Supple no neck masses no JVD no stridor RESPIRATORY: Diminished breath sounds at the bases no crackles rhonchi or wheezes CARDIOVASCULAR: Normal S1-S2, irregular, 3/6 systolic murmur best heard over the aortic area. GASTROINTESTINAL: Soft nontender no megaly no rebound no guarding INTEGUMENTARY: Skin is warm and dry NEUROLOGIC: Alert and oriented x 3 no gross focal deficit MUSKULOSKELETAL: No deformities and no limitation range of motion PSYCHIATRIC: Normal mood affect and normal mental status examination - Labs CBC & Chem 7: 02/10/24 05:15 02/08/24 05:49 Labs: Abnormal Lab Results - Last 24 Hours (Table) 02/09/24 02/09/24 02/09/24 Range/Units 00:00 11:37 16:56 RBC (4.30-5.90) m/uL Hgb (13.0-17.5) gm/dL Hct (39.0-53.0) % RDW (11.5-15.5) % PT (10.0-12.5) sec INR (<1.2) APTT 90.9 H (22.0-30.0) sec POC Glucose (mg/dL) 158 H 186 H (70-110) mg/dL 02/10/24 02/10/24 02/10/24 Range/Units 00:34 05:09 05:15 RBC (4.30-5.90) m/uL Hgb (13.0-17.5) gm/dL Hct (39.0-53.0) % RDW (11.5-15.5) % PT 16.4 H (10.0-12.5) sec INR 1.6 H (<1.2) APTT (22.0-30.0) sec POC Glucose (mg/dL) 156 H 126 H (70-110) mg/dL 02/10/24 02/10/24 Range/Units 05:15 05:15 RBC 3.17 L (4.30-5.90) m/uL Hgb 9.1 L (13.0-17.5) gm/dL Hct 28.4 L (39.0-53.0) % RDW 16.2 H (11.5-15.5) % PT (10.0-12.5) sec INR (<1.2) APTT 92.0 H (22.0-30.0) sec POC Glucose (mg/dL) (70-110) mg/dL Microbiology - Last 24 Hours (Table) 02/08/24 14:37 Blood Culture - Preliminary Blood Assessment and Plan Assessment: Impression: Severe aortic stenosis with peak gradient of 53 and a mean gradient of 32 Syncopal episode secondary to severe aortic stenosis Acute on chronic congestive heart failure with preserved ejection fraction, chest x-ray showed significant improvement today compared to yesterday. Chronic atrial fibrillation Dyslipidemia Severe pulmonary hypertension secondary to his underlying valvular heart disease Chronic kidney disease stage III Chronic anemia Ex-smoker Recommendation: Continue present supportive care measures Continue heparin and eventually transition to oral anticoagulation, patient has been on Coumadin in the past. This is being addressed by cardiology Transfer patient to a monitored bed and selective once a bed is available Balloon valvuloplasty not planned by cardiology at anytime soon. Cardiology is recommending mostly TAVR on outpatient basis Continue Xanax for generalized anxiety Continue Plavix Continue digoxin, glipizide, metformin and pantoprazole. Will continue to follow Time with Patient: Less than 30
--- NOTE | 2024-02-10 10:24 | P.PN ---
Subjective Progress Note Date: 02/10/24 Javon Chavira, is an 88-year-old male who presented to [facility] emergency room with a chief complaint of worsening shortness of breath, patient stated that his symptoms started 4 days ago and has been worsening, patient was recently admitted to [facility] with similar symptoms, he is followed by cardiology and had a cardiac catheterization scheduled for next week with Dr. Gilbert. He was evaluated in the emergency room vital examination on presentation revealed a temperature of 97.8 pulse 82 respiration 18 blood pressure 134/65 pulse ox 97% on room air Laboratory data reveals a white blood count of 7.7 hemoglobin 10.4 platelet count 247 INR 2.0 BUN 32 creatinine 1.34 Testing in the emergency room revealed Patient was admitted to medical floor for further evaluation and treatment On 02/05/2024 patient is alert and oriented 3. Patient to go down for cardiac catheterization this a.m. At this time patient denies chest pain or shortness breath. Patient denies nausea vomiting or diarrhea. Patient denies any urinary burning or frequency. Current vital signs temp 98.8, heart rate 81, respiratory rate 16, blood pressure 127/61 with pulse ox 97% on room air On 02/05/2025 for patient's alert and oriented 3.patient underwent cardiac catheterization yesterday which showed severe one-vessel coronary artery disease of the circumflex. Plans today for angioplasty. Patient also having low hemoglobin of 9.0. GI service is consulted. Creatinine 1.3 bun 26.2. Current vital signs temp 97.8, heart rate 70, respiratory rate 17, blood pressure 128/69 with pulse ox 96 on room air. Patient denies chest pain or shortness breath. Patient denies nausea vomiting or diarrhea. Patient denies any urinary burning or frequency' on 02/08/2024 patient is alert and oriented 3. Discharge was canceled due to syncopal episode. Patient was transferred to the intensive care unit and possible workup for inpatient have her progress. Cardiothoracic and cardiology services to evaluate patient for further plan. At this time patient is resting comfortably in bedcurrent vital signs temp 97.5, heart rate 94, respiratory rate 14, blood pressure 100/70 and pulse ox 94% on 2 L. Patient denies chest pain or shortness of breath. Patient denies nausea vomiting or diarrhea. Patient denies any urinary burning or frequency On 02/09/2024 patient was seen and examined in the ICU he is alert and oriented x 3 in no apparent distress, vital examination reveals a temperature of 97.4 pulse 82 respiration 26 blood pressure 92/57 pulse ox 96% on 3 L nasal cannula, Coum tamar is on hold in anticipation of cardiovascular intervention. Awaiting plan per thoracic surgery. On 02/10/2024 patient's alert and oriented 3. Patient remains on IV heparin drip. Medications adjusted per cardiology. Awaiting decision in regards to surgical replacement of valve. At this time patient denies chest pain or shortness of breath. Patient denies nausea vomiting or diarrhea. Patient denies any urinary burning or frequency. current vital signs temp 98.2, heart rate 101, respiratory rate 14, blood pressure 110/54 with a pulse ox of 95% on 2L Objective - Vital Signs Vital signs: Vital Signs Temp 97.5 F L 02/10/24 08:00 Pulse 80 02/10/24 08:00 Resp 26 H 02/10/24 08:00 BP 112/67 02/10/24 08:00 Pulse Ox 92 L 02/10/24 08:00 FiO2 Intake & Output 02/09/24 02/10/24 02/10/24 18:59 06:59 18:59 Intake Total 782.664 561.571 313.429 Output Total 295 450 Balance 487.664 111.571 313.429 Weight 82.1 kg Intake: IV 120 120 20 0.9NS 120 120 20 Intake, IV Titration 12.664 91.571 43.429 Amount Heparin Sod,Pork in 0.45% 91.571 43.429 NaCl 25,000 unit In 0.45 % NaCl 1 250ml.bag @ 12 UNITS/KG/HR 9.864 mls/hr IV .Q24H SELIN Rx#: [id number] Norepinephrine 4 mg In 12.664 Sodium Chloride 0.9% 250 ml @ 0.03 MCG/KG/MIN 9. 498 mls/hr IV .Q24H SELIN Rx#:[id number] Oral 650 350 250 Output: Urine 295 450 Other: Voiding Method Urinal Urinal Urinal - Exam In general patient is alert and oriented x 3 in no distress HEENT head normocephalic and atraumatic Neck is supple no JVD no goiter no lymphadenopathy no carotid bruit Chest examination is clear to auscultation no crackles no wheezing Cardiac exam reveals regular heart sounds S1 and S2 no gallops no murmurs Abdomen is soft nontender no organomegaly with normal bowel sounds Extremity exam reveals no edema no cyanosis or clubbing Neurological examination reveals no gross focal deficits - Labs CBC & Chem 7: 02/10/24 05:15 02/08/24 05:49 Labs: Abnormal Lab Results - Last 24 Hours (Table) 02/09/24 02/09/24 02/09/24 Range/Units 00:00 11:37 16:56 RBC (4.30-5.90) m/uL Hgb (13.0-17.5) gm/dL Hct (39.0-53.0) % RDW (11.5-15.5) % PT (10.0-12.5) sec INR (<1.2) APTT 90.9 H (22.0-30.0) sec POC Glucose (mg/dL) 158 H 186 H (70-110) mg/dL 02/10/24 02/10/24 02/10/24 Range/Units 00:34 05:09 05:15 RBC (4.30-5.90) m/uL Hgb (13.0-17.5) gm/dL Hct (39.0-53.0) % RDW (11.5-15.5) % PT 16.4 H (10.0-12.5) sec INR 1.6 H (<1.2) APTT (22.0-30.0) sec POC Glucose (mg/dL) 156 H 126 H (70-110) mg/dL 02/10/24 02/10/24 Range/Units 05:15 05:15 RBC 3.17 L (4.30-5.90) m/uL Hgb 9.1 L (13.0-17.5) gm/dL Hct 28.4 L (39.0-53.0) % RDW 16.2 H (11.5-15.5) % PT (10.0-12.5) sec INR (<1.2) APTT 92.0 H (22.0-30.0) sec POC Glucose (mg/dL) (70-110) mg/dL Microbiology - Last 24 Hours (Table) 02/08/24 14:37 Blood Culture - Preliminary Blood Assessment and Plan Plan: Acute exacerbation of diastolic congestive heart failure Underlying history of permanent atrial fibrillation Underlying history of valvular heart disease with severe aortic stenosis and severe pulmonary hypertension. Patient is being assessed by cardiothoracic surgery for possible inpatient TAVR syncopal episode patient was transferred to the intensive care unit for further workup Underlying history of hypertension Underlying history of hyperlipidemia Underlying history of diabetes mellitus anemia. GI service is consulted At this time patient was admitted to telemetry floor Home medications reviewed and reordered status post angioplasty of the circumflex cardiothoracic surgery and cardiology services following Will follow closely
[2024-02-10 11:57] LABS: Glucose,Whole Blood 126 mg/dL (70-110)
--- NOTE | 2024-02-10 13:17 | P.PN ---
Subjective Progress Note Date: 02/10/24 February 08, 2024 Yesterday patient was about to be discharged when he bent forward and had a syncopal episode. Since then patient has been having low blood pressure. He has been transferred to the ICU since. February 09, 2024 Patient was seen and examined at bedside today. He is off norepinephrine. Blood pressure is better. He has a better color on his face today. Denies any further lightheadedness or dizziness. February 10, 2024 Patient is seen and examined at bedside this a.m. Blood pressure is much better, heart rate is around 70s to 80s in atrial fibrillation. Orthostatic vital signs were completely negative. Patient not having any dizziness at this time. 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 On review of his JAMES, his aortic valve is severely calcified but is still opening. His mean gradient was calculated around 42 mmHg. Start IV heparin drip. Hold warfarin for any anticipated procedures Discontinue all antihypertensives including amlodipine and metoprolol Continue digoxin for rate control for atrial fibrillation and for positive chronotropic effect at 0.125 mcg per day Monitor renal function, if renal function declines, consider reducing dose of digoxin to every other day I do not anticipate the need for balloon valvuloplasty at this time as patient's hemodynamics has improved and lightheadedness has resolved. I highly encouraged that this patient should be moved up on the TAVR schedule Encourage patient to be ambulated in the unit with assistance Continue aspirin and Plavix. Monitor hemoglobin levels. Objective - Vital Signs Vital signs: Vital Signs Temp 97.6 F 02/10/24 12:00 Pulse 80 02/10/24 12:00 Resp 29 H 02/10/24 12:00 BP 126/63 02/10/24 12:00 Pulse Ox 96 02/10/24 12:00 FiO2 Intake & Output 02/09/24 02/10/24 02/10/24 18:59 06:59 18:59 Intake Total 782.664 561.571 313.429 Output Total 295 450 Balance 487.664 111.571 313.429 Weight 82.1 kg Intake: IV 120 120 20 0.9NS 120 120 20 Intake, IV Titration 12.664 91.571 43.429 Amount Heparin Sod,Pork in 0.45% 91.571 43.429 NaCl 25,000 unit In 0.45 % NaCl 1 250ml.bag @ 12 UNITS/KG/HR 9.864 mls/hr IV .Q24H SELIN Rx#: [id number] Norepinephrine 4 mg In 12.664 Sodium Chloride 0.9% 250 ml @ 0.03 MCG/KG/MIN 9. 498 mls/hr IV .Q24H SELIN Rx#:[id number] Oral 650 350 250 Output: Urine 295 450 Other: Voiding Method Urinal Urinal Urinal - Labs CBC & Chem 7: 02/10/24 05:15 02/08/24 05:49 Labs: Abnormal Lab Results - Last 24 Hours (Table) 02/09/24 02/09/24 02/10/24 Range/Units 00:00 16:56 00:34 RBC (4.30-5.90) m/uL Hgb (13.0-17.5) gm/dL Hct (39.0-53.0) % RDW (11.5-15.5) % PT (10.0-12.5) sec INR (<1.2) APTT 90.9 H (22.0-30.0) sec POC Glucose (mg/dL) 186 H 156 H (70-110) mg/dL 02/10/24 02/10/24 02/10/24 Range/Units 05:09 05:15 05:15 RBC 3.17 L (4.30-5.90) m/uL Hgb 9.1 L (13.0-17.5) gm/dL Hct 28.4 L (39.0-53.0) % RDW 16.2 H (11.5-15.5) % PT 16.4 H (10.0-12.5) sec INR 1.6 H (<1.2) APTT (22.0-30.0) sec POC Glucose (mg/dL) 126 H (70-110) mg/dL 02/10/24 02/10/24 02/10/24 Range/Units 05:15 10:49 11:55 RBC (4.30-5.90) m/uL Hgb (13.0-17.5) gm/dL Hct (39.0-53.0) % RDW (11.5-15.5) % PT (10.0-12.5) sec INR (<1.2) APTT 92.0 H 57.0 H (22.0-30.0) sec POC Glucose (mg/dL) 126 H (70-110) mg/dL Microbiology - Last 24 Hours (Table) 02/08/24 14:37 Blood Culture - Preliminary Blood
[2024-02-10 16:34] LABS: Glucose,Whole Blood 161 mg/dL (70-110)
[2024-02-10 22:56] VITALS: RESP 24
[2024-02-10 23:51] LABS: Glucose,Whole Blood 187 mg/dL (70-110)
[2024-02-10 23:53] LABS: Glucose,Whole Blood 180 mg/dL (70-110)
[2024-02-11 06:05] LABS: Glucose,Whole Blood 124 mg/dL (70-110)
[2024-02-11 06:47] VITALS: BP 133/76; PULSE 89; TEMP 97.7
[2024-02-11] MEDS: SODIUM CHLORIDE 0.9% 1,000 ML IV SCH (06:54)
[2024-02-11 08:18] LABS: INR 1.5 (<1.2); Partial Thromboplastin Time 65.3 sec (22.0-30.0); Prothrombin Time 15.1 sec (10.0-12.5)
[2024-02-11] MEDS ORDERED: PANTOPRAZOLE 40 MG TABLET PO ONE (08:58)
[2024-02-11] MEDS ORDERED: CLOPIDOGREL 75 MG TAB ONE (08:58)
[2024-02-11] MEDS ORDERED: ASPIRIN 81 MG ONE (08:58)
[2024-02-11] MEDS ORDERED: DIGOXIN 125 MCG TAB ONE (08:59)
[2024-02-11 11:31] LABS: Glucose,Whole Blood 195 mg/dL (70-110)
[2024-02-11] MEDS ORDERED: INSULIN ASPART (NovoLOG) 100 UNIT/ML VIAL SQ ONE ×3 (13:08→21:00)
[2024-02-11 17:05] LABS: Glucose,Whole Blood 191 mg/dL (70-110)
[2024-02-11] MEDS ORDERED: glipiZIDE 5 MG TAB ONE (17:10)
[2024-02-11 20:09] LABS: Glucose,Whole Blood 175 mg/dL (70-110)
[2024-02-12 06:08] LABS: Glucose,Whole Blood 142 mg/dL (70-110)
[2024-02-12] MEDS ORDERED: HEPARIN SOD,PORK IN 0.45% NACL 250 ML IV ONE (09:40)
[2024-02-12] MEDS ORDERED: NACL ONE (09:40)
[2024-02-12] MEDS ORDERED: CLOPIDOGREL 75 MG TAB ONE (09:40)
[2024-02-12] MEDS ORDERED: ASPIRIN 81 MG ONE (09:40)
[2024-02-12] MEDS ORDERED: PANTOPRAZOLE 40 MG TABLET PO ONE (09:40)
[2024-02-12] MEDS ORDERED: DIGOXIN 125 MCG TAB ONE (09:40)
[2024-02-12 11:49] LABS: Glucose,Whole Blood 233 mg/dL (70-110)
[2024-02-12] MEDS ORDERED: INSULIN ASPART (NovoLOG) 100 UNIT/ML VIAL SQ ONE ×3 (12:20→21:58)
[2024-02-12 16:56] LABS: Glucose,Whole Blood 195 mg/dL (70-110)
[2024-02-12] MEDS ORDERED: glipiZIDE 5 MG TAB ONE (17:49)
[2024-02-12 20:06] LABS: Glucose,Whole Blood 201 mg/dL (70-110)
[2024-02-12] MEDS ORDERED: SODIUM CHLORIDE 0.9% 50 ML BAG ONE (23:59)
[2024-02-12] MEDS ORDERED: ceFAZolin 1,000 MG VIAL ONE (23:59)
[2024-02-13 06:00] LABS: Glucose,Whole Blood 159 mg/dL (70-110)
[2024-02-13] MEDS ORDERED: CLOPIDOGREL 75 MG TAB ONE (09:24)
[2024-02-13] MEDS ORDERED: ASPIRIN 81 MG ONE (09:24)
[2024-02-13] MEDS ORDERED: PANTOPRAZOLE 40 MG TABLET PO ONE (09:24)
[2024-02-13] MEDS ORDERED: glipiZIDE 5 MG TAB ONE ×2 (09:25→17:08)
[2024-02-13] MEDS ORDERED: DIGOXIN 125 MCG TAB ONE (09:25)
[2024-02-13 11:31] LABS: Glucose,Whole Blood 243 mg/dL (70-110)
[2024-02-13] MEDS ORDERED: SODIUM BICARBONATE TAB 650 MG TAB ONE ×2 (12:48→20:32)
[2024-02-13] MEDS ORDERED: INSULIN ASPART (NovoLOG) 100 UNIT/ML VIAL SQ ONE ×3 (12:49→20:29)
[2024-02-13 16:41] LABS: Glucose,Whole Blood 191 mg/dL (70-110)
[2024-02-13 20:02] LABS: Glucose,Whole Blood 217 mg/dL (70-110)
[2024-02-13] MEDS ORDERED: FUROSEMIDE 10 MG/ML 4 ML VIAL ONE ×2 (20:30)
[2024-02-13] MEDS ORDERED: HEPARIN SOD,PORK IN 0.45% NACL 250 ML IV ONE (22:48)
[2024-02-13] MEDS ORDERED: NACL ONE (22:48)
[2024-02-13] MEDS ORDERED: ceFAZolin 1,000 MG VIAL ONE (23:59)
[2024-02-14] MEDS ORDERED: ALPRAZolam 0.25 MG TAB ONE (01:38)
[2024-02-14 06:15] LABS: Glucose,Whole Blood 103 mg/dL (70-110)
[2024-02-14] MEDS ORDERED: glipiZIDE 5 MG TAB ONE ×2 (06:26→16:51)
[2024-02-14] MEDS ORDERED: ASPIRIN 81 MG ONE (09:06)
[2024-02-14] MEDS ORDERED: PANTOPRAZOLE 40 MG TABLET PO ONE (09:06)
[2024-02-14] MEDS ORDERED: CLOPIDOGREL 75 MG TAB ONE (09:07)
[2024-02-14] MEDS ORDERED: DIGOXIN 125 MCG TAB ONE (09:07)
[2024-02-14] MEDS ORDERED: FUROSEMIDE 10 MG/ML 4 ML VIAL ONE ×2 (09:08)
[2024-02-14] MEDS ORDERED: SODIUM BICARBONATE TAB 650 MG TAB ONE (09:08)
[2024-02-14] MEDS ORDERED: SODIUM BICARB 8.4% 50 ML SYR (1 MEQ/ML) ONE ×2 (11:03)
[2024-02-14] MEDS ORDERED: INSULIN ASPART (NovoLOG) 100 UNIT/ML VIAL SQ ONE ×2 (12:10→16:51)
[2024-02-14 20:15] LABS: Glucose,Whole Blood 240 mg/dL (70-110)
--- NOTE | 2024-03-11 13:26 | US ---
Patient: Javon Chavira B Ordering Physician: Unknown, Unknown ID: [id number] Phone, Pager: Phone: N/ A Pager: N/A : [phone] Age/Gender: 88Y, M Primary Location: N/A Procedure: US kidneys/renal and bladder Study Date: 02/13/2024 12:48:00 PM EXAMINATION TYPE: US kidneys/renal and bladder DATE OF EXAM: 03/03/2024 COMPARISON: NONE CLINICAL INDICATION: Acute kidney injury. EXAM MEASUREMENTS: Right Kidney: 10.88 x 4.5 cm Left Kidney: 10.5 x 4.1 cm Post Void Residual Volume: mL Right Kidney: No hydronephrosis or mass. No calculi. Left Kidney: Simple appearing anechoic cyst. No suspicious masses. No hydronephrosis or calculus. Bladder: Anechoic no mass Bilateral Jets seen: Not visualized IMPRESSION: No evidence for obstructive uropathy.
--- NOTE | 2024-03-12 18:33 | CDI ---
Documentation Clarification Form Date: 03/12/2024 06:12:49 PM From: Cammie Landeros Phone: Admit Date: 02/05/2024 02:08:00 PM Patient Name: Javon Chavira Visit Number: [id number] Discharge Date: 02/14/2024 08:30:00 PM ATTENTION: The Clinical Documentation Specialists (CDI) and [facility] Coding Staff appreciate your assistance in clarifying documentation. Please respond to the clarification below the line at the bottom and electronically sign. The CDI & [facility] Coding staff will review the response and follow-up if needed. Please note: Queries are made part of the Legal Health Record. If you have any questions, please contact the author of this message via ITS. Doctor/Provider: Rosalind Amaya Your patient has: Acute exacerbation of diastolic congestive heart failure per H&P and following Progress Notes Acute exacerbation of systolic CHF per Progress Note (page 7 of 21 and 17 of 21 scanned paper chart) Clarification regarding the type of CHF is requested. History/Risk Factors: 88yo M, ACCHF, perm A Fib, , MR, PHTN, HTN, HLD, DMII w CKD III Clinical Indicators: VS/Pulse OX: 97 BNP: 02/02 22452 02/06 53578 Echocardiogram Results: Diagnosis: Severeaortic stenosisand recurrentsyncope,CADstatus post coronary stenting. Preserved LV systolic function. Smallpericardial effusionwith thickened pericardium. Calcificaortic stenosis, severe peak gradient at least 48 mmHg Chest X Ray: 02/02 Findings most consistent with mildCHF, [facility] Treatment: At this time patient was admitted [facility]. He was started on IV Lasix. Home medications reviewed and reordered. Cardiology consultation was requested In your professional opinion, can you please clarify the type of CHF if known? ] Acute on Chronic Systolic Heart Failure (reduced EF) [ xxxxx] Acute on Chronic Diastolic Heart Failure (preserved EF) [ ] Acute on Chronic Heart Failure Systolic & Diastolic Heart Failure [ ] Other, please specify [ ] Unable to determine (Template Last Revised: August 2020) MTDD
--- NOTE | 2024-03-25 14:29 | XR ---
Site ID [facility] Patient Javon Chavira B ID [id number] 1935 Age/Gender: 88Y, M Order # N/A Procedure XR Chest 2 Views Date 02/13/2024 12:04:00 PM EXAMINATION TYPE: Chest X-ray 2 Views DATE OF EXAM: 03/01/2024 5:21 PM COMPARISON: Chest radiographs from 02/09/2024 TECHNIQUE: Chest X-ray 2 Views Frontal and lateral views of the chest. Delayed interpretation due to institutional cyber attack. CLINICAL INDICATION: Male, a 8 year old with history of shortness of breath; FINDINGS: Lungs/Pleura: Redemonstration of a right pleural effusion with adjacent atelectasis. No pneumothorax. Pulmonary vascularity: Pulmonary vascular congestion. Heart/mediastinum: Cardiomediastinal silhouette is enlarged and stable. Atherosclerotic calcificatio ns are seen in the aorta. Musculoskeletal: No acute osseous pathology. IMPRESSION: Cardiomegaly, pulmonary vascular congestion and small right pleural effusion. Correlate with BNP for congestive heart failure.
--- NOTE | 2024-04-07 15:12 | CT ---
EXAMINATION TYPE: CT TAVR Planning DATE OF EXAM: 02/11/2024 HISTORY: Pre-TAVR CT DLP: 2384.30 mGycm Automated Exposure Control for Dose Reduction was Utilized. CONTRAST: CT scan of the chest, abdomen and pelvis is performed with IV Contrast, patient injected with 100 mL of Isovue 300. COMPARISON: None TECHNIQUE: Helical imaging obtained through the chest, abdomen and pelvis during arterial phase yeimi nu administration of radiographic contrast intravenously. FINDINGS: See report from [employer] regarding preprocedural planning CHEST: Lower Neck and Thyroid: No significant findings Lungs: Diffuse patchy groundglass attenuation with intralobular septal thickening throughout the righ t lung and additional regions within the left lung. Right lower lobe partial subsegmental atelectasis . A few calcified granulomas. No pneumothorax. Central Airway: No significant findings Pleura: Small left and moderate right pleural effusions. Pulmonary Arteries: No significant findings Heart and Pericardium: Mild to moderately enlarged. No pericardial effusion. Moderate atherosclerotic calcification of the aorta and its branches. Conventional three-vessel aortic arch. At least mild st enosis at the carotid bifurcations secondary to calcified plaque. Mild coronary artery calcifications . Lymph Nodes: No significant findings Mediastinum & Esophagus: No significant findings AV Calcification Severity: Moderate ABDOMEN/PELVIS: Please note arterial phase of the imaging limits detailed evaluation of the solid abdominal organs. Liver: No significant findings Spleen: No significant findings Kidneys: No hydronephrosis. Exophytic left renal 2.8 cm cyst with additional inferior pole 2.2 cm cys t. Adrenal Glands: No significant findings Pancreas: No significant findings Gallbladder: Cholelithiasis. Bowel and Mesentery: Colonic diverticulosis. Distal duodenum diverticulum. Lymph Nodes: No significant findings Urinary Bladder: No significant findings Pelvic Organs: Postsurgical changes of the prostate gland. Other: Atherosclerotic calcification of the aorta and its branches. At least moderate stenosis origin of the celiac axis, SMA, bilateral single renal arteries secondary to calcified plaque. Other Lines/Tubes/Devices/Hardware: Right total hip arthroplasty. IMPRESSION: 1. Moderate AC valve calcifications. 2. Cardiomegaly with small left and moderate right pleural effusions with diffuse pulmonary intersti tial edema. Findings suggest CHF exacerbation.
== END 2024-02-14 20:30 | disposition hospice, inpatient (51) | DRG 321 ==
LOC: EC 09:50 → 6NMEDSUR 13:28 → OBSVTOIN 02-05 14:08 → 2SICU 02-07 20:14 → 3SCARD 02-10 22:55
PROVIDERS: ADMIT Internal Medicine; ATTEND Internal Medicine
PROC: 4A023N7 Measurement of Cardiac Sampling and Pressure, Left Heart, Percutaneous Approach (ICD-10-PCS; 2024-02-05)
PROC: B2111ZZ Fluoroscopy of Multiple Coronary Arteries using Low Osmolar Contrast (ICD-10-PCS; 2024-02-05)
PROC: 027034Z Dilation of Coronary Artery, One Artery with Drug-eluting Intraluminal Device, Percutaneous Approach (ICD-10-PCS; principal; 2024-02-06 07:30)
PROC: B240ZZ3 Ultrasonography of Single Coronary Artery, Intravascular (ICD-10-PCS; 2024-02-06 07:30)
PROC: 3E033XZ Introduction of Vasopressor into Peripheral Vein, Percutaneous Approach (ICD-10-PCS; 2024-02-08)
DX: I13.0 Hypertensive heart and chronic kidney disease with heart failure and stage 1 through stage 4 chronic kidney disease, or unspecified chronic kidney disease (principal); I50.33 Acute on chronic diastolic (congestive) heart failure; R57.0 Cardiogenic shock; I48.21 Permanent atrial fibrillation; J91.8 Pleural effusion in other conditions classified elsewhere; N17.9 Acute kidney failure, unspecified; I42.9 Cardiomyopathy, unspecified; I27.29 Other secondary pulmonary hypertension; E11.22 Type 2 diabetes mellitus with diabetic chronic kidney disease; N18.30 Chronic kidney disease, stage 3 unspecified; D63.1 Anemia in chronic kidney disease; I08.3 Combined rheumatic disorders of mitral, aortic and tricuspid valves; E78.5 Hyperlipidemia, unspecified; I25.10 Atherosclerotic heart disease of native coronary artery without angina pectoris; Z96.641 Presence of right artificial hip joint; E61.1 Iron deficiency; Z79.01 Long term (current) use of anticoagulants; Z79.82 Long term (current) use of aspirin; Z79.84 Long term (current) use of oral hypoglycemic drugs; Z87.891 Personal history of nicotine dependence; Z79.899 Other long term (current) drug therapy; I25.2 Old myocardial infarction; Z91.198 Patient's noncompliance with other medical treatment and regimen for other reason
CPT/HCPCS: 36410; 36415; 70486; 71045; 71046; 71275; 74174; 76770; 76937; 80048; 80053; 80061; 81001; 81003; 82565; 82607; 82728; 82746; 83036; 83540; 83550; 83605; 83735; 83880; 84443; 84484; 84520; 85025; 85610; 85730; 86850; 86900; 86901; 87040; 87070; 92979; 93005; 93308; 93454; 93880; 94760; 96374; 99285